=== PATIENT | male | born 1945 | race Caucasian/White ===

== ENCOUNTER → 2016-07-30 | Outpatient (CLI) | payer MEDICARE ==
[2016-07-30 11:06] LABS: EKG EKG PERFORMED
[2016-07-30 11:21] LABS: Basophils % (A) 1 %; CH 33.5; CHCM 35.4; Eosinophils # (A) 0.3 k/uL (0-0.7); Eosinophils % (A) 4 %; HCT 47.6 % (39.0-53.0); HDW 3.21; HGB 16.2 gm/dL (13.0-17.5); Luc # (Auto) 0.13; Luc % (Auto) 2; Lymphocytes # (A) 1.5 k/uL (1.0-4.8); Lymphocytes % (A) 22 %; MCH 32.3 pg (25.0-35.0); MCHC 33.9 g/dL (31.0-37.0); MCV 95.3 fL (80.0-100.0); Mean Platelet Volume 6.6; Monocytes # (A) 0.3 k/uL (0-1.0); Monocytes % (A) 5 %; Neutrophils # (A) 4.5 k/uL (1.3-7.7); Neutrophils % (A) 67 %; RDW 13.5 % (11.5-15.5); WBC 6.7 k/uL (3.8-10.6); WBC (Perox) 6.65
[2016-07-30 11:31] LABS: ALT 41 U/L (21-72); AST 26 U/L (17-59); Alkaline Phosphatase 99 U/L (38-126); Anion Gap 9 mmol/L; Blood Urea Nitrogen 16 mg/dL (9-20); Calcium 9.8 mg/dL (8.4-10.2); Carbon Dioxide 26 mmol/L (22-30); Chloride 108 mmol/L (98-107); Glucose 165 mg/dL (74-99); Non-African American GFR(MDRD) >60 (>60 ml/min/1.73 sqM); Potassium 4.4 mmol/L (3.5-5.1); Sodium 143 mmol/L (137-145); Total Bilirubin 1.1 mg/dL (0.2-1.3); Total Protein 7.2 g/dL (6.3-8.2)
[2016-07-30 11:36] LABS: INR 1.1 (<1.1); Partial Thromboplastin Time 26.8 sec (22.0-30.0); Prothrombin Time 10.7 sec (9.0-12.0)
[2016-07-30 11:42] LABS: Appearance,Urine Clear (Clear); Bilirubin,Urine Negative (Negative); Glucose,Urine (UA) Negative (Negative); Ketones,Urine Negative (Negative); Leukocyte Esterase,Urine Negative (Negative); Mucus,Urine Rare /hpf; Nitrite,Urine Negative (Negative); PH, Urine 5.5 (5.0-8.0); Particle Count 4106; Protein,Urine 2+ (Negative); Specific Gravity,Urine 1.015 (1.001-1.035); UA Billing (MACRO vs. MICRO) MICRO; Urobilinogen,Urine <2.0 mg/dL (<2.0)
== END | disposition home or self-care (01) ==
LOC: LABPAT 10:50
PROVIDERS: ATTEND Orthopaedic Surgery
DX: Z01.810 Encounter for preprocedural cardiovascular examination (principal); Z01.812 Encounter for preprocedural laboratory examination; Z79.01 Long term (current) use of anticoagulants
CPT/HCPCS: 80053; 81001; 85025; 85610; 85730; 86850; 86900; 86901; 87070; 93005

== ENCOUNTER 2018-11-03 16:13 | Inpatient (IN) | payer MEDICARE ==
[2018-11-03] MEDS: SODIUM CHLORIDE 0.9% 1,000 ML IV STA ×4 (16:32→21:07)
[2018-11-03 16:49] LABS: Basophils % (A) 0 %; Eosinophils # (A) 0.1 k/uL (0-0.7); Eosinophils % (A) 2 %; HCT 35.7 % (39.0-53.0); HGB 11.9 gm/dL (13.0-17.5); Lymphocytes # (A) 1.1 k/uL (1.0-4.8); Lymphocytes % (A) 15 %; MCH 32.1 pg (25.0-35.0); MCHC 33.4 g/dL (31.0-37.0); MCV 96.2 fL (80.0-100.0); Mean Platelet Volume 6.8; Monocytes # (A) 0.4 k/uL (0-1.0); Monocytes % (A) 6 %; Neutrophils # (A) 5.7 k/uL (1.3-7.7); Neutrophils % (A) 76 %; Platelet Count 219 k/uL (150-450); RBC 3.71 m/uL (4.30-5.90); WBC 7.5 k/uL (3.8-10.6)
[2018-11-03 16:59] LABS: Albumin 3.3 g/dL (3.5-5.0); Calcium 9.2 mg/dL (8.4-10.2); Magnesium 1.4 mg/dL (1.6-2.3); Potassium 4.3 mmol/L (3.5-5.1); Total Bilirubin 0.5 mg/dL (0.2-1.3); Total Protein 5.8 g/dL (6.3-8.2)
[2018-11-03 17:04] LABS: Prothrombin Time 10.6 sec (9.0-12.0)
[2018-11-03 17:08] LABS: Partial Thromboplastin Time 21.4 sec (22.0-30.0)
--- NOTE | 2018-11-03 17:10 | ED ---
General Adult HPI - General Chief complaint: Syncope Stated complaint: SYNCOPE Time Seen by Provider: 11/03/18 16:20 Source: patient, EMS, RN notes reviewed, old records reviewed Mode of arrival: EMS Limitations: no limitations - History of Present Illness Initial comments: 72-year-old male presents with syncopal episode. Patient was outside in the a t today. He had become quite lightheaded, and collapsed and was brought in by EMS. He was found to be bradycardic and hypotensive with initial blood pressure in the 70s. He was mildly confused. He has history of hypertension and is on multiple antihypertensive medications. He did take his medications this afternoon. He reports mild nausea. No chest pain. No dyspnea. No abdominal pain. No focal numbness or weakness. - Related Data Home Medications Medication Instructions Recorded Confirmed Atorvastatin [Lipitor] 80 mg PO DAILY 07/29/16 11/03/18 Ciprofloxacin HCl [Cipro] 500 mg PO BID 11/03/18 11/03/18 Hydrochlorothiazide [Hydrodiuril] 25 mg PO DAILY 11/03/18 11/03/18 Insulin Aspart [NovoLOG Flexpen] See Protocol SQ ACHS 11/03/18 11/03/18 Insulin Glargine,Hum.rec.anlog See Protocol SQ HS 11/03/18 11/03/18 [Lantus Solostar] Lisinopril [Zestril] 20 mg PO BID 11/03/18 11/03/18 Metoprolol Tartrate [Lopressor] 25 mg PO BID 11/03/18 11/03/18 Tamsulosin [Flomax] 0.4 mg PO DAILY 11/03/18 11/03/18 cloNIDine HCL [Catapres] 0.1 mg PO BID 11/03/18 11/03/18 hydrALAZINE HCL [Apresoline] 50 mg PO TID 11/03/18 11/03/18 metFORMIN HCL [Glucophage] 500 mg PO BID 11/03/18 11/03/18 Allergies Allergy/AdvReac Type Severity Reaction Status Date / Time No Known Allergies Allergy Verified 11/03/18 17:33 Review of Systems ROS Statement: Those systems with pertinent positive or pertinent negative responses have been documented in the HPI. ROS Other: All systems not noted in ROS Statement are negative. Past Medical History Past Medical History: Cancer, Diabetes Mellitus, GERD/Reflux, Hyperlipidemia, Hypertension Additional Past Medical History / Comment(s): past hx colon polyps History of Any Multi-Drug Resistant Organisms: None Reported Past Surgical History: Appendectomy, Cholecystectomy, Coronary Bypass/CABG, Heart Catheterization Additional Past Surgical History / Comment(s): triple bypass Past Anesthesia/Blood Transfusion Reactions: No Reported Reaction Past Psychological History: No Psychological Hx Reported Smoking Status: Former smoker Past Alcohol Use History: None Reported Past Drug Use History: None Reported - Past Family History Mother Family Medical History: No Reported History General Exam Limitations: no limitations General appearance: alert, in no apparent distress Head exam: Present: atraumatic, normocephalic Eye exam: Present: normal appearance, PERRL ENT exam: Present: mucous membranes dry Neck exam: Present: normal inspection. Absent: tenderness, meningismus Respiratory exam: Present: normal lung sounds bilaterally. Absent: respiratory distress, wheezes Cardiovascular Exam: Present: regular rate, normal rhythm GI/Abdominal exam: Present: soft. Absent: distended, tenderness, guarding, rebound Extremities exam: Present: normal inspection, normal capillary refill. Absent: calf tenderness Neurological exam: Present: alert, oriented X3, CN II-XII intact. Absent: motor sensory deficit Psychiatric exam: Present: normal affect, normal mood Skin exam: Present: warm, intact, diaphoretic, pallor. Absent: cyanosis Course Vital Signs 11/03/18 11/03/18 16:22 16:37 Temperature 97.3 F L Pulse Rate 61 56 L Respiratory 18 18 Rate Blood Pressure 87/50 97/54 O2 Sat by Pulse 95 98 Oximetry EKG Findings - EKG Comments: EKG Findings:: EKG: Sinus rhythm with first-degree AV block, right bundle branch block, left anterior fascicular block rate of 60, TX interval 216, QRS duration 170, QTC 468 similar appearing EKG compared to July 2016. Medical Decision Making - Medical Decision Making 72-year-old male presents for evaluation of syncope. Patient was in the sun and heat, he had taken his blood pressure medications this afternoon which include hydrochlorothiazide, lisinopril, clonidine, hydralazine. He's had difficult to control blood pressure in the past. No chest pain. No dyspnea. He is lightheaded. Workup in the emergency department reveals EKG was sinus rhythm first-degree AV block normal white blood cell count, stable he will, creatinine is up trending at 1.88 from baseline of 1.2. He has magnesium 1.4 which is replaced. Troponin is negative. Urinalysis shows minor hematuria, he does have indwelling Villafuerte catheter with history of obstruction. Chest x-ray is is particularly, concern for CHF. Cardiomegaly similar compared to previous EKG. After initial fluid bolus, patient's blood pressure does improve. He will be admitted for close observation of hypotension and bradycardia. He will be kept on gentle IV hydration with some concern for developing pulmonary edema. A BMP will be added this is pending. He's continued as metoprolol, his other antihypertensives will be held awaiting stabilization of blood pressure. Case is discussed with Dr. Snider, we will admit. - Lab Data Result diagrams: 11/03/18 16:40 11/03/18 16:40 Lab Results 11/03/18 11/03/18 11/03/18 Range/Units 16:40 16:40 16:40 WBC 7.5 (3.8-10.6) k/uL RBC 3.71 L (4.30-5.90) m/uL Hgb 11.9 L (13.0-17.5) gm/dL Hct 35.7 L (39.0-53.0) % MCV 96.2 (80.0-100.0) fL MCH 32.1 (25.0-35.0) pg MCHC 33.4 (31.0-37.0) g/dL RDW 13.0 (11.5-15.5) % Plt Count 219 (150-450) k/uL Neutrophils % 76 % Lymphocytes % 15 % Monocytes % 6 % Eosinophils % 2 % Basophils % 0 % Neutrophils # 5.7 (1.3-7.7) k/uL Lymphocytes # 1.1 (1.0-4.8) k/uL Monocytes # 0.4 (0-1.0) k/uL Eosinophils # 0.1 (0-0.7) k/uL Basophils # 0.0 (0-0.2) k/uL PT 10.6 (9.0-12.0) sec INR 1.0 (<1.2) APTT 21.4 L (22.0-30.0) sec Sodium 142 (137-145) mmol/L Potassium 4.3 (3.5-5.1) mmol/L Chloride 115 H (98-107) mmol/L Carbon Dioxide 18 L (22-30) mmol/L Anion Gap 9 mmol/L BUN 44 H (9-20) mg/dL Creatinine 1.88 H (0.66-1.25) mg/dL Est GFR (CKD-EPI)AfAm 41 (>60 ml/min/1.73 sqM) Est GFR (CKD-EPI)NonAf 36 (>60 ml/min/1.73 sqM) Glucose 81 (74-99) mg/dL Plasma Lactic Acid [place] (0.7-2.0) mmol/L Calcium 9.2 (8.4-10.2) mg/dL Magnesium 1.4 L (1.6-2.3) mg/dL Total Bilirubin 0.5 (0.2-1.3) mg/dL AST 19 (17-59) U/L ALT 25 (21-72) U/L Alkaline Phosphatase 66 (38-126) U/L Troponin I (0.000-0.034) ng/mL Total Protein 5.8 L (6.3-8.2) g/dL Albumin 3.3 L (3.5-5.0) g/dL Urine Color Urine Appearance (Clear) Urine pH (5.0-8.0) Ur Specific [place] (1.001-1.035) Urine Protein (Negative) Urine Glucose (UA) (Negative) Urine Ketones (Negative) Urine Blood (Negative) Urine Nitrite (Negative) Urine Bilirubin (Negative) Urine Urobilinogen (<2.0) mg/dL Ur Leukocyte Esterase (Negative) Urine RBC (0-5) /hpf Urine WBC (0-5) /hpf Hyaline Casts (0-2) /lpf Urine Mucus (None) /hpf 11/03/18 11/03/18 11/03/18 Range/Units 16:40 16:40 18:15 WBC (3.8-10.6) k/uL RBC (4.30-5.90) m/uL Hgb (13.0-17.5) gm/dL Hct (39.0-53.0) % MCV (80.0-100.0) fL MCH (25.0-35.0) pg MCHC (31.0-37.0) g/dL RDW (11.5-15.5) % Plt Count (150-450) k/uL Neutrophils % % Lymphocytes % % Monocytes % % Eosinophils % % Basophils % % Neutrophils # (1.3-7.7) k/uL Lymphocytes # (1.0-4.8) k/uL Monocytes # (0-1.0) k/uL Eosinophils # (0-0.7) k/uL Basophils # (0-0.2) k/uL PT (9.0-12.0) sec INR (<1.2) APTT (22.0-30.0) sec Sodium (137-145) mmol/L Potassium (3.5-5.1) mmol/L Chloride (98-107) mmol/L Carbon Dioxide (22-30) mmol/L Anion Gap mmol/L BUN (9-20) mg/dL Creatinine (0.66-1.25) mg/dL Est GFR (CKD-EPI)AfAm (>60 ml/min/1.73 sqM) Est GFR (CKD-EPI)NonAf (>60 ml/min/1.73 sqM) Glucose (74-99) mg/dL Plasma Lactic Acid [place] 1.8 (0.7-2.0) mmol/L Calcium (8.4-10.2) mg/dL Magnesium (1.6-2.3) mg/dL Total Bilirubin (0.2-1.3) mg/dL AST (17-59) U/L ALT (21-72) U/L Alkaline Phosphatase (38-126) U/L Troponin I <0.012 (0.000-0.034) ng/mL Total Protein (6.3-8.2) g/dL Albumin (3.5-5.0) g/dL Urine Color Yellow Urine Appearance Clear (Clear) Urine pH 5.5 (5.0-8.0) Ur Specific [place] 1.017 (1.001-1.035) Urine Protein 1+ H (Negative) Urine Glucose (UA) Negative (Negative) Urine Ketones Negative (Negative) Urine Blood Small H (Negative) Urine Nitrite Negative (Negative) Urine Bilirubin Negative (Negative) Urine Urobilinogen <2.0 (<2.0) mg/dL Ur Leukocyte Esterase Small H (Negative) Urine RBC 52 H (0-5) /hpf Urine WBC 4 (0-5) /hpf Hyaline Casts 16 H (0-2) /lpf Urine Mucus Rare H (None) /hpf Critical Care Time Critical Care Time: Yes Total Critical Care Time: 35 Disposition Clinical Impression: Dehydration, Hypotension Disposition: ADMITTED IP TO THIS [facility] Condition: Stable Is patient prescribed a controlled substance at d/c from ED?: No Referrals: Phil Maxwell MD [Primary Care Provider] - 1-2 days Decision to Admit Reason: Admit from EC Decision Date: 11/03/18 Decision Time: 19:01
[2018-11-03] MEDS ORDERED: MAGNESIUM SULFATE-D5W PMX 1 GM in DEXTROSE/WATER 1 100ML.BAG IVPB ONE (17:36)
[2018-11-03] MEDS ORDERED: SODIUM CHLORIDE 0.9% 500 ML 500 ML IV ONE (17:36)
--- NOTE | 2018-11-03 18:08 | XR ---
EXAMINATION: XR chest 2V DATE AND TIME: 11/03/2018 5:02 PM CLINICAL INDICATION: PHH; syncope TECHNIQUE: Frontal and 2 lateral views COMPARISON: 08/11/2016 FINDINGS: There is an interstitial pattern of increased density throughout the lungs, mildly silhouetting the p ulmonary vasculature symmetrically. The lungs are otherwise clear. The pleural spaces are negative. The cardiac silhouette is moderate-markedly enlarged. There are sternal sutures and mediastinal clips and EKG leads. The remainder of the mediastinal silhouette is unremarkable. The skeletal structures and soft tissues are negative for acute findings. IMPRESSION: Evidence of mild interstitial phase pulmonary edema, presumably cardiogenic etiology.
[2018-11-03 18:43] LABS: Appearance,Urine Clear (Clear); Bilirubin,Urine Negative (Negative); Blood,Urine Small (Negative); Color,Urine Yellow; Glucose,Urine (UA) Negative (Negative); Hyaline Casts,Urine 16 /lpf (0-2); Ketones,Urine Negative (Negative); Leukocyte Esterase,Urine Small (Negative); Mucus,Urine Rare /hpf; Nitrite,Urine Negative (Negative); PH, Urine 5.5 (5.0-8.0); Protein,Urine 1+ (Negative); RBC,Urine 52 /hpf (0-5); Specific Gravity,Urine 1.017 (1.001-1.035); Urobilinogen,Urine <2.0 mg/dL (<2.0); WBC,Urine 4 /hpf (0-5)
[2018-11-03] MEDS ORDERED: NALOXONE 0.4 MG/ML 1 ML VIAL IV PRN (18:46)
[2018-11-03 22:29] VITALS: BMI 29.2
[2018-11-03 22:48] LABS: Glucose,Whole Blood 112 mg/dL (75-99)
[2018-11-03] MEDS: METOPROLOL TARTRATE 25 MG TAB PO SCH (22:56)
[2018-11-04 06:02] LABS: Glucose,Whole Blood 149 mg/dL (75-99)
[2018-11-04] MEDS: metFORMIN 500 MG TAB PO SCH ×2 (06:12→17:30)
[2018-11-04] MEDS: INSULIN ASPART (NovoLOG) 100 UNIT/ML VIAL SQ SCH ×4 (06:12→21:22)
[2018-11-04 07:00] LABS: Basophils % (A) 0 %; Eosinophils # (A) 0.2 k/uL (0-0.7); Eosinophils % (A) 2 %; HCT 38.3 % (39.0-53.0); HGB 12.3 gm/dL (13.0-17.5); Lymphocytes # (A) 1.1 k/uL (1.0-4.8); Lymphocytes % (A) 12 %; MCH 31.5 pg (25.0-35.0); MCV 98.3 fL (80.0-100.0); Mean Platelet Volume 6.9; Monocytes # (A) 0.7 k/uL (0-1.0); Monocytes % (A) 7 %; Neutrophils # (A) 7.7 k/uL (1.3-7.7); Neutrophils % (A) 79 %; Platelet Count 201 k/uL (150-450); RDW 13.1 % (11.5-15.5); WBC 9.8 k/uL (3.8-10.6)
[2018-11-04 07:13] LABS: Albumin 3.2 g/dL (3.5-5.0); Calcium 9.1 mg/dL (8.4-10.2); Magnesium 1.6 mg/dL (1.6-2.3); Potassium 4.8 mmol/L (3.5-5.1); Total Bilirubin 0.5 mg/dL (0.2-1.3); Total Protein 5.7 g/dL (6.3-8.2)
[2018-11-04] MEDS: METOPROLOL TARTRATE 25 MG TAB PO SCH (08:55)
[2018-11-04] MEDS: ATORVASTATIN 80 MG TAB PO SCH (08:56)
[2018-11-04] MEDS: hydrALAZINE HCL 50 MG TAB PO SCH ×2 (08:56→17:30)
[2018-11-04] MEDS: TAMSULOSIN 0.4 MG CAP.ER.24H PO SCH (08:56)
[2018-11-04] MEDS ORDERED: cloNIDine HCL 0.1 MG TAB PO SCH (09:00)
[2018-11-04] MEDS ORDERED: LISINOPRIL 20 MG TAB PO SCH (09:00)
[2018-11-04] MEDS ORDERED: HYDROCHLOROTHIAZIDE 25 MG TAB PO SCH (09:00)
[2018-11-04 12:13] LABS: Glucose,Whole Blood 151 mg/dL (75-99)
--- NOTE | 2018-11-04 14:22 | P.HPIM ---
History of Present Illness H&P Date: 11/04/18 Chief Complaint: Passed out History of presenting complaint: This is a pleasant 72-year-old patient of Dr. Phil Maxwell. Chronic stable medical conditions include diabetes, GERD, hyperlipidemia, hypertension, coronary artery disease with a coronary bypass in 2008. Patient about a week ago was with his girlfriend near [facility] and could not make urine. Lateral up going to the ER. Had a Villafuerte catheter placed which she's had since then. A computed tomography scan of the abdomen was done that was a concern about cancer of the kidney. Patient did come back and see his family doctor. Patient now has a follow-up appointment what is felt to be with the urologist this coming Tuesday. Patient yesterday with his granddaughter was at the local fair and was pretty hot outside close to 90. Patient only had some water in the morning. Patient became dizzy lightheaded and and patient passed out. There is no chest pain no palpitation. No focal weakness. No seizure activity. Pro time biting. No incontinence. Patient's blood pressure was low when he had come in. After getting fluids resuscitation is feeling much better. No headache or dizziness. No visual symptoms. Review of systems: GEN.: Tired EYES: None HEENT: None NECK: None RESPIRATORY: None CARDIOVASCULAR: None GASTROINTESTINAL: Has a Villafuerte catheter GENITOURINARY: None MUSCULOSKELETAL: Some pain in the joints] LYMPHATICS: None HEMATOLOGICAL: None PSYCHIATRY: None NEUROLOGICAL: None. Past medical history: Diabetes mellitus type 2, GERD, hypertension, hyperlipidemia, coronary artery disease, has a Villafuerte catheter for a week, being worked up for kidney cancer. Social history: Smoked a pack a day for 10 years stopped about 35 years ago. 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 Lives with her son. Family history: Reviewed, noncontributory to presentation Physical examination: VITAL SIGNS: 97.3, 61, 18, 87/50, 95% room air on presentation GENERAL: BMI 30.0, sitting up, comfortable. EYES: Pupils equal. Conjunctiva normal. HEENT: External appearance of nose and ears normal, oral cavity grossly normal. NECK: JVD not raised; masses not palpable. HEART: First and second heart sounds are normal; no edema. LUNGS: Respiratory rate normal; clear to auscultation. ABDOMEN: Soft, nontender, liver spleen not palpable, no masses palpable, Villafuerte catheter in place. PSYCH: Alert and oriented x3; mood and affect normal. NEUROLOGICAL: Cranial nerves grossly intact; no facial asymmetry, power and sensation grossly intact. LYMPHATICS: No lymph nodes palpable in the axilla and neck Investigations, reviewed in the clinical context: White count 7.5 hemoglobin 11.9 potassium 4.3 BUN 44 creatinine 1.88 Troponin negative Assessment: -Acute renal failure, prerenal from dehydration patient's out of the sun it was very hot had not drank much water -Coronary artery disease with a prior history of coronary bypass -Diabetes mellitus type 2 on oral hypoglycemic and non-good. 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 -Outpatient workup in place for kidney mass Plan: Patient is put on telemetry. Given home medications. Given IV fluids. Repeat electrolytes. Patient is feeling much better after getting IV fluids. Care was discussed with the patient Past Medical History Past Medical History: Cancer, Diabetes Mellitus, GERD/Reflux, Hyperlipidemia, Hypertension Additional Past Medical History / Comment(s): past hx colon polyps History of Any Multi-Drug Resistant Organisms: None Reported Past Surgical History: Appendectomy, Cholecystectomy, Coronary Bypass/CABG, Heart Catheterization Additional Past Surgical History / Comment(s): triple bypass 2008 Past Anesthesia/Blood Transfusion Reactions: No Reported Reaction Past Psychological History: No Psychological Hx Reported Smoking Status: Former smoker Past Alcohol Use History: None Reported Additional Past Alcohol Use History / Comment(s): STARTED SMOKING AT AGE 27 QUIT SMOKING AT AGE 37 SMOKED 1 PPD Past Drug Use History: None Reported - Past Family History Mother Family Medical History: No Reported History Medications and Allergies Home Medications Medication Instructions Recorded Confirmed Type Atorvastatin [Lipitor] 80 mg PO DAILY 07/29/16 11/03/18 History Hydrochlorothiazide [Hydrodiuril] 25 mg PO DAILY 11/03/18 11/03/18 History Insulin Aspart [NovoLOG Flexpen] See Protocol SQ ACHS 11/03/18 11/03/18 History Insulin Glargine,Hum.rec.anlog See Protocol SQ HS 11/03/18 11/03/18 History [Lantus Solostar] Lisinopril [Zestril] 20 mg PO BID 11/03/18 11/03/18 History Metoprolol Tartrate [Lopressor] 25 mg PO BID 11/03/18 11/03/18 History Tamsulosin [Flomax] 0.4 mg PO DAILY 11/03/18 11/03/18 History cloNIDine HCL [Catapres] 0.1 mg PO BID 11/03/18 11/03/18 History hydrALAZINE HCL [Apresoline] 50 mg PO TID 11/03/18 11/03/18 History metFORMIN HCL [Glucophage] 500 mg PO BID 11/03/18 11/03/18 History Allergies Allergy/AdvReac Type Severity Reaction Status Date / Time No Known Allergies Allergy Verified 11/03/18 17:33 Physical Exam Vitals: Vital Signs Temp Pulse Pulse Resp BP BP Pulse Ox 11/04/18 04:00 97.7 F 55 L 18 160/75 97 11/04/18 00:00 98.1 F 48 L 17 161/68 100 11/03/18 22:09 98.6 F 53 L 15 167/73 100 11/03/18 21:39 97.8 F 53 L 18 137/70 98 11/03/18 21:06 56 L 16 136/73 97 11/03/18 19:35 98 F 56 L 16 117/66 96 11/03/18 16:37 56 L 18 97/54 98 11/03/18 16:22 97.3 F L 61 18 87/50 95 Intake and Output 11/03/18 11/04/18 11/04/18 22:59 06:59 14:59 Intake Total 50 10 240 Output Total 600 300 Balance -550 -290 240 Intake: IV 10 Invasive Line 1 10 Intake, IV Titration 50 Amount Sodium Chloride 0.9% 500 50 ml 500 ml @ 999 mls/hr IV .Q31M ONE Rx#:[id number] Oral 240 Output: Urine 600 300 Other: Voiding Method Indwelling Catheter Toilet Weight 89.358 kg Results CBC & Chem 7: 11/04/18 06:31 11/04/18 06:31 Labs: Abnormal Lab Results - Last 24 Hours (Table) 11/03/18 11/03/18 11/03/18 Range/Units 16:40 16:40 16:40 RBC 3.71 L (4.30-5.90) m/uL Hgb 11.9 L (13.0-17.5) gm/dL Hct 35.7 L (39.0-53.0) % APTT 21.4 L (22.0-30.0) sec Chloride 115 H (98-107) mmol/L Carbon Dioxide 18 L (22-30) mmol/L BUN 44 H (9-20) mg/dL Creatinine 1.88 H (0.66-1.25) mg/dL Glucose (74-99) mg/dL POC Glucose (mg/dL) (75-99) mg/dL Magnesium 1.4 L (1.6-2.3) mg/dL Total Protein 5.8 L (6.3-8.2) g/dL Albumin 3.3 L (3.5-5.0) g/dL Urine Protein (Negative) Urine Blood (Negative) Ur Leukocyte Esterase (Negative) Urine RBC (0-5) /hpf Hyaline Casts (0-2) /lpf Urine Mucus (None) /hpf 11/03/18 11/03/18 11/04/18 Range/Units 18:15 22:46 05:58 RBC (4.30-5.90) m/uL Hgb (13.0-17.5) gm/dL Hct (39.0-53.0) % APTT (22.0-30.0) sec Chloride (98-107) mmol/L Carbon Dioxide (22-30) mmol/L BUN (9-20) mg/dL Creatinine (0.66-1.25) mg/dL Glucose (74-99) mg/dL POC Glucose (mg/dL) 112 H 149 H (75-99) mg/dL Magnesium (1.6-2.3) mg/dL Total Protein (6.3-8.2) g/dL Albumin (3.5-5.0) g/dL Urine Protein 1+ H (Negative) Urine Blood Small H (Negative) Ur Leukocyte Esterase Small H (Negative) Urine RBC 52 H (0-5) /hpf Hyaline Casts 16 H (0-2) /lpf Urine Mucus Rare H (None) /hpf 11/04/18 11/04/18 Range/Units 06:31 06:31 RBC 3.90 L (4.30-5.90) m/uL Hgb 12.3 L (13.0-17.5) gm/dL Hct 38.3 L (39.0-53.0) % APTT (22.0-30.0) sec Chloride 115 H (98-107) mmol/L Carbon Dioxide 20 L (22-30) mmol/L BUN 32 H (9-20) mg/dL Creatinine (0.66-1.25) mg/dL Glucose 152 H (74-99) mg/dL POC Glucose (mg/dL) (75-99) mg/dL Magnesium (1.6-2.3) mg/dL Total Protein 5.7 L (6.3-8.2) g/dL Albumin 3.2 L (3.5-5.0) g/dL Urine Protein (Negative) Urine Blood (Negative) Ur Leukocyte Esterase (Negative) Urine RBC (0-5) /hpf Hyaline Casts (0-2) /lpf Urine Mucus (None) /hpf Thrombosis Risk Factor Assmnt - Choose All That Apply Any of the Below Risk Factors Present?: Yes Each Factor Represents 1 point: Obesity (BMI >25) Other Risk Factors: Yes Each Risk Factor Represents 2 Points: Age 61-74 years Other congenital or acquired thrombophilia - If yes, enter type in comment: No Each Risk Factor Represents 5 Points: Stroke (< 1 month) Thrombosis Risk Factor Assessment Total Risk Factor Score: 8 Thrombosis Risk Factor Assessment Level: High Risk
[2018-11-04 16:57] LABS: Glucose,Whole Blood 186 mg/dL (75-99)
[2018-11-04] MEDS: hydrALAZINE HCL 25 MG TAB PO SCH (20:22)
[2018-11-04] MEDS: LISINOPRIL-HCTZ 20-12.5 MG 1 EACH TAB PO SCH (20:22)
[2018-11-04] MEDS: cloNIDine HCL 0.1 MG TAB PO SCH (20:22)
[2018-11-04 20:43] LABS: Glucose,Whole Blood 170 mg/dL (75-99)
[2018-11-04] MEDS: INSULIN DETEMIR (LEVEMIR) 100 UNIT/ML SYR SQ SCH (21:22)
[2018-11-05 06:27] LABS: Glucose,Whole Blood 161 mg/dL (75-99)
[2018-11-05] MEDS: metFORMIN 500 MG TAB PO SCH ×2 (06:37→17:14)
[2018-11-05] MEDS: INSULIN ASPART (NovoLOG) 100 UNIT/ML VIAL SQ SCH ×4 (06:39→21:16)
[2018-11-05] MEDS: ATORVASTATIN 80 MG TAB PO SCH (07:52)
[2018-11-05] MEDS: LISINOPRIL-HCTZ 20-12.5 MG 1 EACH TAB PO SCH ×2 (07:52→21:15)
[2018-11-05] MEDS: hydrALAZINE HCL 25 MG TAB PO SCH ×3 (07:52→21:15)
[2018-11-05] MEDS: TAMSULOSIN 0.4 MG CAP.ER.24H PO SCH (07:53)
[2018-11-05] MEDS: cloNIDine HCL 0.1 MG TAB PO SCH (07:53)
[2018-11-05 11:09] LABS: Calcium 10.4 mg/dL (8.4-10.2)
--- NOTE | 2018-11-05 11:17 | P.CRDCN ---
History of Present Illness Consult date: 11/05/18 Reason for Consult (text): Bradycardia Chief complaint: Syncopal episode History of present illness: This is a 72-year-old male patient of Dr. SCARLETT Kim with past medical history of coronary artery disease status post triple vessel CABG in 2008, hypertension, hyperlipidemia, diabetes mellitus type 2, benign prostatic hypertrophy and urinary retention with Villafuerte catheter placement 10 days ago. Patient gives history that he was unable to urinate [place] and had Villafuerte catheter placed and started on Flomax and ciprofloxacin. CAT scan was done at that time but did show questionable mass on his left kidney. He has had follow-up with Dr. Phil Maxwell his PCP and is scheduled with urology tomorrow for initial appointment. Patient was at the [facility] with his granddaughter and was sitting down watching her while she was on a ride. He experienced lightheadedness and dizzy and everything went black. He collapsed and landed on his knees. He believes he had full loss of consciousness as he cannot remember what happened. He also gives history of having a similar episode last Tuesday but not as severe. He and his were at a restaurant and needed assistance to get to the car. Yesterday, he was evaluated by EMS and found to be bradycardic and hypotensive with initial blood pressure in the 70s. Patient was also mildly confused. Patient denies having any chest pain, shortness of breath. Patient was provided 1 L of IV fluids in the emergency center with improvement of his blood pressure. Overnight, patient's heart rate is been running in the 50s. He did have a run of sinus tachycardia at 150 for 5-10 minutes. Patient denies having any chest pain or shortness of breath. He states he is feeling quite well at this time. EKG reveals sinus mechanism with first-degree AV block, right bundle branch block. Laboratory studies: White count 7.5, hemoglobin 11.9, sodium 142, potassium 4.3, chloride 115, CO2 18, BUN 44 and creatinine 1.88 with baseline creatinine of 1. magnesium was 1.4 and was replaced. Troponin 0.012. Lactic acid 1.8. ProBNP 484. Urinalysis showed small amount of blood, RBCs 52. Patient does have a chronic Villafuerte catheter Chest x-ray revealed mild interstitial phase pulmonary edema, presumably cardiogenic etiology. Review Of Systems: Constitutional: No fever, no chills, no night sweats. No weight change. No weakness, fatigue or lethargy. No daytime sleepiness. EENT: No headache. No blurred vision or double vision, no loss of vision. No loss of Hearing, no ringing in the ears, reports dizziness. No nasal drainage or congestion. No epistaxis. No sore throat. Lungs: No shortness of breath, cough, no sputum production. No wheezing. Cardiovascular: No chest pain, no lower extremity edema. No palpitations. No paroxysmal nocturnal dyspnea. No orthopnea. Reports lightheadedness or dizziness. Reports syncopal episodes. Abdominal: No abdominal pain. No nausea, vomiting. No diarrhea. No constipation. No bloody or tarry stools.. No loss of appetite. Genitourinary: No dysuria, increased frequency, urgency. No urinary retention. Musculoskeletal: No myalgias. No muscle weakness, no gait dysfunction, no frequent falls. No back pain. No neck pain. Integumentary: No wounds, no lesions. No rash or pruritus. No unusual bruising. No change in hair or nails. Neurologic: No aphasia. No facial droop. No change in mentation. No head injury. No headache. No paralysis. No paresthesia. Psychiatric: No depression. No anxiety. No mood swings. Endocrine: No abnormal blood sugars. No weight change. No excessive sweating or thirst. No cold intolerance. No weight change. Gen: This is a 72-year-old male. He is sitting up in a gentleman appears to be comfortable and in no acute distress. No symptoms of lightheadedness or dizziness. HEENT: Head is atraumatic, normocephalic. Pupils equal, round. Sclerae is anicteric. NECK: Supple. No JVD. No lymphadenopathy. No thyromegaly. LUNGS: Clear to auscultation. No wheezes or rhonchi. No intercostal retractions. HEART: Regular rate and rhythm. No murmur. ABDOMEN: Soft. Bowel sounds are present. No masses. No tenderness. EXTREMITIES: No pedal edema. No calf tenderness. Dorsalis pedis +2 bilaterally. NEUROLOGICAL: Patient is awake, alert and oriented x3. Cranial nerves 2 through 12 are grossly intact. Assessment: Syncope possibly related to bradycardia, hypotension or dehydration. History of coronary artery disease status post triple-vessel CABG in 2008. Hypertension. Hyperlipidemia. Diabetes mellitus type 2. Benign prostatic hypertrophy with urinary retention and currently with Villafuerte catheter. Possible kidney cancer which will need further workup as an outpatient. Plan: Continue cardiac monitoring for arrhythmias. Hold beta catherine and clonidine. Start IV fluids 0.9 normal saline at 75 mL per hour. No evidence of heart failure. Continue hydralazine 75 mg 3 times daily. Obtain 2-D echocardiogram and Doppler study to assess cardiac structure and function. Consult urology. Further recommendations to follow based upon clinical course. Nurse practitioner note has been reviewed, I agree with documented findings and plan of care. Patient was seen and examined. Past Medical History Past Medical History: Cancer, Diabetes Mellitus, GERD/Reflux, Hyperlipidemia, Hypertension Additional Past Medical History / Comment(s): past hx colon polyps History of Any Multi-Drug Resistant Organisms: None Reported Past Surgical History: Appendectomy, Cholecystectomy, Coronary Bypass/CABG, Heart Catheterization Additional Past Surgical History / Comment(s): triple bypass 2008 Past Anesthesia/Blood Transfusion Reactions: No Reported Reaction Past Psychological History: No Psychological Hx Reported Smoking Status: Former smoker Past Alcohol Use History: None Reported Additional Past Alcohol Use History / Comment(s): STARTED SMOKING AT AGE 27 QUIT SMOKING AT AGE 37 SMOKED 1 PPD Past Drug Use History: None Reported - Past Family History Mother Family Medical History: No Reported History Medications and Allergies Home Medications Medication Instructions Recorded Confirmed Type Atorvastatin [Lipitor] 80 mg PO DAILY 07/29/16 11/03/18 History Hydrochlorothiazide [Hydrodiuril] 25 mg PO DAILY 11/03/18 11/03/18 History Insulin Aspart [NovoLOG Flexpen] See Protocol SQ ACHS 11/03/18 11/03/18 History Insulin Glargine,Hum.rec.anlog See Protocol SQ HS 11/03/18 11/03/18 History [Lantus Solostar] Lisinopril [Zestril] 20 mg PO BID 11/03/18 11/03/18 History Metoprolol Tartrate [Lopressor] 25 mg PO BID 11/03/18 11/03/18 History Tamsulosin [Flomax] 0.4 mg PO DAILY 11/03/18 11/03/18 History cloNIDine HCL [Catapres] 0.1 mg PO BID 11/03/18 11/03/18 History hydrALAZINE HCL [Apresoline] 50 mg PO TID 11/03/18 11/03/18 History metFORMIN HCL [Glucophage] 500 mg PO BID 11/03/18 11/03/18 History Allergies Allergy/AdvReac Type Severity Reaction Status Date / Time No Known Allergies Allergy Verified 11/03/18 17:33 Physical Exam Vitals: Vital Signs Temp Pulse Resp BP Pulse Ox 11/05/18 08:00 98.2 F 62 16 158/74 97 11/05/18 04:00 97.7 F 77 15 153/81 95 11/05/18 00:00 98.7 F 60 15 133/60 97 11/04/18 20:00 98.2 F 59 L 18 159/73 98 11/04/18 16:00 98.4 F 56 L 18 157/71 11/04/18 12:00 98.0 F 62 18 142/66 94 L 11/04/18 11:42 18 Intake and Output 11/04/18 11/05/18 11/05/18 22:59 06:59 14:59 Intake Total 1182 Balance 1182 Intake: Oral 1182 Other: Voiding Method Toilet Toilet Indwelling Catheter # Voids 2 1 Weight 86.7 kg Results 11/04/18 06:31 11/04/18 06:31 Current Medications Generic Name Dose Route Start Last Admin Trade Name Freq PRN Reason Stop Dose Admin Atorvastatin Calcium 80 mg 11/04/18 09:00 11/05/18 07:52 Lipitor PO 80 mg DAILY CRISTIAN Administration Clonidine 0.1 mg 11/04/18 22:00 11/05/18 07:53 Catapres PO 0.1 mg TID CRISTIAN Administration Lisinopril/HCTZ 1 each 11/04/18 21:00 11/05/18 07:52 Zestoretic 20-12.5 PO 1 each BID CRISTIAN Administration Hydralazine HCl 75 mg 11/04/18 22:00 11/05/18 07:52 Apresoline PO 75 mg TID CRISTIAN Administration Insulin Aspart 0 unit 11/04/18 07:30 11/05/18 06:39 Novolog SQ 1 unit ACHS CRISTIAN Administration Protocol Insulin Detemir 30 unit 11/04/18 21:00 06/29/19 21:22 Levemir SQ 30 unit HS CRISTIAN Administration Metformin HCl 500 mg 11/04/18 07:30 11/05/18 06:37 Glucophage PO 500 mg AC-BID CRISTIAN Administration Naloxone HCl 0.2 mg 11/03/18 18:46 Narcan IV Q2M PRN Opioid Reversal Tamsulosin HCl 0.4 mg 11/04/18 09:00 11/05/18 07:53 Flomax PO 0.4 mg DAILY CRISTIAN Administration Intake and Output 11/04/18 11/05/18 11/05/18 22:59 06:59 14:59 Intake Total 1182 Balance 1182 Intake: Oral 1182 Other: Voiding Method Toilet Toilet Indwelling Catheter # Voids 2 1 Weight 86.7 kg 11/04/18 06:31 11/04/18 06:31
[2018-11-05] MEDS: SODIUM CHLORIDE 0.9% 1,000 ML IV SCH (11:21)
[2018-11-05 11:46] LABS: Glucose,Whole Blood 173 mg/dL (75-99)
[2018-11-05 16:45] LABS: Glucose,Whole Blood 181 mg/dL (75-99)
[2018-11-05 21:13] LABS: Glucose,Whole Blood 183 mg/dL (75-99)
[2018-11-05] MEDS: INSULIN DETEMIR (LEVEMIR) 100 UNIT/ML SYR SQ SCH (21:15)
--- NOTE | 2018-11-05 22:53 | P.PN ---
Progress Note - Text Progress Note Date: 11/05/18 Chief Complaint: Passed out Interval history: This is a pleasant 72-year-old patient of Dr. Phil Maxwell. Chronic stable medical conditions include diabetes, GERD, hyperlipidemia, hypertension, coronary artery disease with a coronary bypass in 2008. Patient about a week ago was with his girlfriend near [facility] and could not make urine. Lateral up going to the ER. Had a Villafuerte catheter placed which she's had since then. A computed tomography scan of the abdomen was done that was a concern about cancer of the kidney. Patient did come back and see his family doctor. Patient now has a follow-up appointment what is felt to be with the urologist this coming Tuesday. Patient yesterday with his granddaughter was at the local fair and was pretty hot outside close to 90. Patient only had some water in the morning. Patient became dizzy lightheaded and and patient passed out. There is no chest pain no palpitation. No focal weakness. No seizure activity. Pro time biting. No incontinence. Patient's blood pressure was low when he had come in. After getting fluids resuscitation is feeling much better. No headache or dizziness. No visual symptoms. Today-seen by cardiology later today. I held the beta catherine yesterday. This morning's supervisor rework to stop the clonidine. Start on IV fluids. No other new symptoms. Review of systems: Was done for constitutional, cardiovascular, GI, pulmonary. relevant finding as above Current medications reviewed that include: Clonidine was stopped today. Physical examination: VITAL SIGNS: 98.2, 62, 16, 1 50 x 74, 97% room air GENERAL: sitting up, comfortable. EYES: Pupils equal. Conjunctiva normal. HEENT: External appearance of nose and ears normal, oral cavity grossly normal. NECK: JVD not raised; masses not palpable. HEART: First and second heart sounds are normal; no edema. LUNGS: Respiratory rate normal; clear to auscultation. ABDOMEN: Soft, nontender, liver spleen not palpable, no masses palpable, Villafuerte catheter in place. PSYCH: Alert and oriented x3; mood and affect normal. Investigations, reviewed in the clinical context: Potassium 5, BUN 24, crit and 1.22 Troponin negative Assessment: -Acute renal failure, prerenal from dehydration patient's out of the sun it was very hot had not drank much water, improved -Coronary artery disease with a prior history of coronary bypass -Diabetes mellitus type 2 on oral hypoglycemic and non-good. -Essential hypertension, uncontrolled -Hyperlipidemia -Obesity BMI 30.0 -Bladder outflow obstruction patient is a Villafuerte catheter for a week. -Outpatient workup in place for kidney mass Plan: Clonidine was discontinued by cardiology earlier today. Put on IV fluids. Other medications to continue. Care was discussed with the patient.
[2018-11-06] MEDS: SODIUM CHLORIDE 0.9% 1,000 ML IV SCH ×2 (00:10→10:06)
[2018-11-06 05:54] LABS: Glucose,Whole Blood 172 mg/dL (75-99)
[2018-11-06] MEDS: INSULIN ASPART (NovoLOG) 100 UNIT/ML VIAL SQ SCH ×4 (06:49→21:20)
[2018-11-06] MEDS: metFORMIN 500 MG TAB PO SCH ×2 (06:49→14:57)
[2018-11-06] MEDS: hydrALAZINE HCL 25 MG TAB PO SCH ×3 (08:54→19:54)
[2018-11-06] MEDS: LISINOPRIL-HCTZ 20-12.5 MG 1 EACH TAB PO SCH ×2 (08:54→19:53)
[2018-11-06] MEDS: TAMSULOSIN 0.4 MG CAP.ER.24H PO SCH (08:54)
[2018-11-06] MEDS: ATORVASTATIN 80 MG TAB PO SCH (08:54)
--- NOTE | 2018-11-06 10:41 | P.PN ---
Subjective This very pleasant 72-year-old gentleman with a history of CABG, hypertension, hyperlipidemia, diabetes is admitted for syncope. He was found to be in acute renal failure. Was also noted that his heart rate was running in the 50s and on one occasion he jumped up to 150s. Beta blockers and clonidine is on hold as of now. Blood pressure is very high in the range of 190s systolic. Today the patient says that he's feeling good. He does not complain of any more dizziness, no chest pain racing heart, no cough no shortness of breath. Objective - Vital Signs Vital signs: Vital Signs Temp 98.1 F 11/06/18 08:00 Pulse 74 11/06/18 08:00 Resp 18 11/06/18 08:00 BP 197/90 11/06/18 08:00 Pulse Ox 99 11/06/18 08:00 Intake & Output 11/05/18 11/06/18 11/06/18 18:59 06:59 18:59 Intake Total 702 Output Total 670 1625 Balance 32 -1625 Weight 87.2 kg Intake: Oral 702 Output: Urine 670 1625 Other: Voiding Method Toilet Toilet Toilet - Exam On exam, alert and oriented x3. HEENT: Conjunctivae normal. eyes normal. NECK: No JVD. No thyroid enlargement. 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 No rhonchi or crackles. No bronchial breathing. ABDOMEN: Soft, nontender . No guarding. no masses palpable. No ascites, No hepatosplenomegaly.Bowel sounds heard. LEGS: No edema. no swelling NERVOUS SYSTEM: Cranial N 2-12 grossly normal. Moves all 4 limbs. No focal deficits. No sensory deficit. No signs of cerebellar dysfucntion. Skin: no ulcer no rash - Labs CBC & Chem 7: 11/04/18 06:31 11/05/18 10:27 Labs: Abnormal Lab Results - Last 24 Hours (Table) 11/05/18 11/05/18 11/05/18 Range/Units 10:27 11:44 16:43 Chloride 109 H (98-107) mmol/L BUN 24 H (9-20) mg/dL Glucose 176 H (74-99) mg/dL POC Glucose (mg/dL) 173 H 181 H (75-99) mg/dL Calcium 10.4 H (8.4-10.2) mg/dL 11/05/18 11/06/18 Range/Units 21:10 05:52 Chloride (98-107) mmol/L BUN (9-20) mg/dL Glucose (74-99) mg/dL POC Glucose (mg/dL) 183 H 172 H (75-99) mg/dL Calcium (8.4-10.2) mg/dL Assessment and Plan Assessment: - Syncope - Bradycardia - A accelerated hypertension - AK I on CK D. Baseline kidney functions 1.2. - History of CAD status post CABG - Hyperlipidemia - Diabetes mellitus - Urinary retention has Villafuerte catheter. Computed tomography scan done in the other facility showed possible cancer of the kidneys Plan - Continue blood pressure medications. Nurse to take blood pressure and page if high - Awaiting urology consultation - Awaiting further recommendations from cardiology - Continue rest of the medical care - We'll follow up with the patient
--- NOTE | 2018-11-06 12:16 | ECHOF ---
Referral Reason:LV function MEASUREMENTS -------- HEIGHT: 172.7 cm WEIGHT: 87.1 kg BP: 154/67 RVIDd: 3.0 cm (< 3.3) IVSd: 1.7 cm (0.6 - 1.1) LVIDd: 4.7 cm (3.9 - 5.3) LVPWd: 1.6 cm (0.6 - 1.1) IVSs: 2.2 cm LVIDs: 3.3 cm LVPWs: 1.9 cm LA Diam: 3.9 cm (2.7 - 3.8) LAESV Index (A-L): 26.85 ml/m Ao Diam: 4.2 cm (2.0 - 3.7) AV Cusp: 2.0 cm (1.5 - 2.6) MV EXCURSION: 16.594 mm (> 18.000) MV EF SLOPE: 46 mm/s (70 - 150) EPSS: 1.1 cm MV E Dayne: 0.90 m/s MV DecT: 192 ms MV A Dayne: 1.15 m/s MV E/A Ratio: 0.78 FINDINGS -------- Paced rhythm. This was a technically adequate study. The left ventricular size is normal. There is severe concentric left ventricular hypertrophy. Ove rall left ventricular systolic function is mildly impaired with, an EF between 45 - 50 %. [place] Hypo kinesis. The right ventricle is normal in size. Normal LA size by volume 22+/-6 ml/m2. The right atrium was not well visualized. 5 ml of Lumason was utilized for enhancement of images. Interatrial and interventricular septum intact. There is mild aortic valve sclerosis. Trace to mild aortic regurgitation. The mitral valve leaflets are mildly thickened. Mild mitral annular calcification present. The tricuspid valve was not well visualized. Trace/mild (physiologic) pulmonic regurgitation. The aortic root is dilated measuring 4.2cm. Normal inferior vena cava with normal inspiratory collapse consistent with estimated right atrial pre ssure of 5 mmHg. There is no pericardial effusion. CONCLUSIONS -------- 1. Paced rhythm. 2. This was a technically adequate study. 3. The left ventricular size is normal. 4. There is severe concentric left ventricular hypertrophy. 5. [place] Hypokinesis. 6. The right ventricle is normal in size. 7. Normal LA size by volume 22+/-6 ml/m2. 8. The right atrium was not well visualized. 9. 5 ml of Lumason was utilized for enhancement of images. 10. Interatrial and interventricular septum intact. 11. There is mild aortic valve sclerosis. 12. Trace to mild aortic regurgitation. 13. The mitral valve leaflets are mildly thickened. 14. Mild mitral annular calcification present. 15. The tricuspid valve was not well visualized. 16. Trace/mild (physiologic) pulmonic regurgitation. 17. The aortic root is dilated measuring 4.2cm. 18. Normal inferior vena cava with normal inspiratory collapse consistent with estimated right atrial pressure of 5 mmHg. 19. There is no pericardial effusion. IT ACCOUNT MANAGER: Farzana Hardy RDCS
[2018-11-06 12:38] LABS: Glucose,Whole Blood 141 mg/dL (75-99)
[2018-11-06] MEDS: cloNIDine HCL 0.1 MG TAB PO SCH ×2 (13:25→19:54)
[2018-11-06 16:55] LABS: Glucose,Whole Blood 190 mg/dL (75-99)
--- NOTE | 2018-11-06 18:38 | P.PN ---
Subjective Progress Note Date: 11/06/18 Principal diagnosis: hypotension/bradycardia Patient currently continues sinus rhythm heart rate 84. Blood pressure this a.m. 200/93. Restart Catapress 0.1 mg twice daily by mouth. Continue beta catherine Metoprolol Tartrate 12.5 mg BID. Pt in no acute distress up and ambulating in room with ease. Lala cath has been Dc'd and pt able to void without any issues. Patient has no current complaints of chest pain, chest pressure, shortness of breath or palpitations. Physical exam within normal limits. OK for DC from a cardiology standpoint with controlled BP. PHYSICAL EXAM: VITAL SIGNS: GENERAL: Well developed, in no acute distress. HEENT: Head is atraumatic, normocephalic. Pupils are equal, round. Extra ocular movements intact. Mucous membranes moist. Neck supple. No JVD. No carotid bruit. No thyromegaly. LUNGS: Clear to auscultation no wheezes, rales or rhonchi. No chest wall tenderness on palpation or with deep breathing. HEART: Regular rate and rhythm, no rubs or gallops. S1 and S2 heard. No murmur. ABDOMEN: Abdominal exam, WNL. Bowel sounds x4 quads. Soft, non-tender, without masses, organomegaly, or abdominal aorta enlargement. EXTREMITIES/VASCULAR: Extremities have easily palpable radial, femoral, dorsalis pedis and posterior tibial pulses. No cyanosis, calf tenderness. No BLE edema. NEUROLOGIC: Patient is awake, alert and oriented x3. No focal neurologic abnormalities. Impression: Syncope secondary to bradycardia/hypotension/dehydration. CAD s/p triple-vessel CABG in 2008. Hypertension. Hyperlipidemia. DM II Benign prostatic hypertrophy, no current lala cath Objective - Vital Signs Vital signs: Vital Signs Temp 97.8 F 11/06/18 11:01 Pulse 79 11/06/18 11:01 Resp 18 11/06/18 11:01 BP 200/93 11/06/18 11:01 Pulse Ox 97 11/06/18 11:01 Intake & Output 11/05/18 11/06/18 11/06/18 18:59 06:59 18:59 Intake Total 702 Output Total 670 1625 Balance 32 -1625 Weight 87.2 kg Intake: Oral 702 Output: Urine 670 1625 Other: Voiding Method Toilet Toilet Toilet - Labs CBC & Chem 7: 11/04/18 06:31 11/05/18 10:27 Labs: Abnormal Lab Results - Last 24 Hours (Table) 11/05/18 11/05/18 11/06/18 Range/Units 16:43 21:10 05:52 POC Glucose (mg/dL) 181 H 183 H 172 H (75-99) mg/dL 11/06/18 Range/Units 12:03 POC Glucose (mg/dL) 141 H (75-99) mg/dL
[2018-11-06 21:18] LABS: Glucose,Whole Blood 174 mg/dL (75-99)
[2018-11-06] MEDS: INSULIN DETEMIR (LEVEMIR) 100 UNIT/ML SYR SQ SCH (21:19)
[2018-11-07] MEDS ORDERED: INSULIN DETEMIR (LEVEMIR) 100 UNIT/ML SYR SQ SCH (06:10)
[2018-11-07 06:14] LABS: Glucose,Whole Blood 167 mg/dL (75-99)
[2018-11-07] MEDS: metFORMIN 500 MG TAB PO SCH (06:27)
[2018-11-07] MEDS: INSULIN ASPART (NovoLOG) 100 UNIT/ML VIAL SQ SCH ×2 (06:27→12:32)
[2018-11-07] MEDS: SODIUM CHLORIDE 0.9% 1,000 ML IV SCH (06:29)
[2018-11-07 07:20] LABS: HGB 12.4 gm/dL (13.0-17.5); MCHC 33.6 g/dL (31.0-37.0); MCV 95.1 fL (80.0-100.0); Mean Platelet Volume 7.8; Platelet Count 191 k/uL (150-450); RBC 3.89 m/uL (4.30-5.90); RDW 14.9 % (11.5-15.5); WBC 7.1 k/uL (3.8-10.6)
[2018-11-07 07:28] LABS: Calcium 10.2 mg/dL (8.4-10.2); Potassium 4.6 mmol/L (3.5-5.1)
[2018-11-07 08:59] VITALS: BP 148/72; PULSE 65; RESP 16; TEMP 98.1
[2018-11-07] MEDS ORDERED: METOPROLOL TARTRATE 12.5 MG TAB PO SCH (10:00)
--- NOTE | 2018-11-07 10:32 | P.DS ---
Providers Date of admission: 11/03/18 18:49 Expected date of discharge: 11/07/18 Attending physician: Fabio Snider Consults: 11/04/18 14:30 Consult Physician Routine Consulting Provider: Jovany Kim Consult Reason/Comments: bradycardia Do you want consulting provider notified?: Yes 11/05/18 10:49 Consult Physician Routine Consulting Provider: Stanley Kuhn Consult Reason/Comments: lala leaking, kidney ca Do you want consulting provider notified?: Yes Primary care physician: Phil Maxwell MD Hospital Course: Discharge summary - Syncope - Bradycardia - A accelerated hypertension - AK I on CK D. Baseline kidney functions 1.2. - History of CAD status post CABG - Hyperlipidemia - Diabetes mellitus - Urinary retention has Lala catheter. Computed tomography scan done in the other facility showed possible cancer of the kidneys Hospital course This very pleasant 72-year-old gentleman with a history of CABG, hypertension, hyperlipidemia, diabetes is admitted for syncope. He was found to be in acute renal failure. Was also noted that his heart rate was running in the 50s and on one occasion he jumped up to 150s. Beta blockers and clonidine is on hold as of now. Blood pressure is very high in the range of 190s systolic. Patient's CAT scan also showed that he's having possible cancer of the kidneys. He was also having some urinary retention. Lala catheter was placed which was later DC'd and he is voiding on his own. Patient's blood pressure medications were adjusted and he was started back on the clonidine and low-dose of beta catherine. On 11/07/2018 On exam, alert and oriented x3. HEENT: Conjunctivae normal. eyes normal. NECK: No JVD. No thyroid enlargement. No LNs CARDIOVASCULAR: S1-S2 positive RESPIRATION: Breath sounds diminished in the bases. No rhonchi or crackles. No bronchial breathing. ABDOMEN: Soft, nontender . No guarding. no masses palpable. No ascites, No hepatosplenomegaly.Bowel sounds heard. LEGS: No edema. no swelling NERVOUS SYSTEM: Cranial N 2-12 grossly normal. Moves all 4 limbs. No focal deficits. No sensory deficit. No signs of cerebellar dysfucntion. Skin: no ulcer no rash Patient was cleared by cardiology to be discharged Patient is to get an event monitor before discharge and follow-up with cardiology at the date discussed in the discharge summary below. Patient is to also follow with urology as an outpatient. The primary care doctor is to coordinate the follow-up with urology and cardiology Patient Condition at Discharge: Stable Plan - Discharge Summary Discharge Rx Participant: No New Discharge Prescriptions: New hydrALAZINE HCL [Apresoline] 75 mg PO TID #90 tab Metoprolol Tartrate [Lopressor] 12.5 mg PO BID #60 tab Lisinopril-Hctz 20-12.5 mg [Zestoretic 20-12.5] 1 each PO BID #60 tab Continue Atorvastatin [Lipitor] 80 mg PO DAILY metFORMIN HCL [Glucophage] 500 mg PO BID cloNIDine HCL [Catapres] 0.1 mg PO BID Tamsulosin [Flomax] 0.4 mg PO DAILY Insulin Glargine,Hum.rec.anlog [Lantus Solostar] See Protocol SQ HS Insulin Aspart [NovoLOG Flexpen] See Protocol SQ ACHS Discontinued hydrALAZINE HCL [Apresoline] 50 mg PO TID Hydrochlorothiazide [Hydrodiuril] 25 mg PO DAILY Metoprolol Tartrate [Lopressor] 25 mg PO BID Lisinopril [Zestril] 20 mg PO BID Discharge Medication List Atorvastatin [Lipitor] 80 mg PO DAILY 07/29/16 [History] Insulin Aspart [NovoLOG Flexpen] See Protocol SQ ACHS 11/03/18 [History] Insulin Glargine,Hum.rec.anlog [Lantus Solostar] See Protocol SQ HS 11/03/18 [History] Tamsulosin [Flomax] 0.4 mg PO DAILY 11/03/18 [History] cloNIDine HCL [Catapres] 0.1 mg PO BID 11/03/18 [History] metFORMIN HCL [Glucophage] 500 mg PO BID 11/03/18 [History] Lisinopril-Hctz 20-12.5 mg [Zestoretic 20-12.5] 1 each PO BID #60 tab 11/07/18 [Rx] Metoprolol Tartrate [Lopressor] 12.5 mg PO BID #60 tab 11/07/18 [Rx] hydrALAZINE HCL [Apresoline] 75 mg PO TID #90 tab 11/07/18 [Rx] Follow up Appointment(s)/Referral(s): Jovany Kim MD [STAFF PHYSICIAN] - 1 Week (Office will call with follow up appointment.) Phil Maxwell MD [Primary Care Provider] - 3 Days (Office will call with follow up appointment. ) Stanley Kuhn MD [STAFF PHYSICIAN] - 1 Week Patient Instructions/Handouts: Urinary Tract Infection in Men (DC), Syncope (DC), Bradycardia (DC) Activity/Diet/Wound Care/Special Instructions: Pt needs 2 week event monitor prior to discharge, follow up with cardiology in 3 weeks. Discharge Disposition: HOME SELF-CARE
[2018-11-07] MEDS: cloNIDine HCL 0.1 MG TAB PO SCH (10:42)
[2018-11-07] MEDS: TAMSULOSIN 0.4 MG CAP.ER.24H PO SCH (10:42)
[2018-11-07] MEDS: ATORVASTATIN 80 MG TAB PO SCH (10:42)
[2018-11-07] MEDS: hydrALAZINE HCL 25 MG TAB PO SCH (10:42)
[2018-11-07] MEDS: LISINOPRIL-HCTZ 20-12.5 MG 1 EACH TAB PO SCH (10:42)
[2018-11-07 11:36] LABS: Glucose,Whole Blood 162 mg/dL (75-99)
--- NOTE | 2018-11-07 16:12 | PN ---
PROGRESS NOTE DATE OF SERVICE: Mr. Mello has a history of ischemic heart disease and came in with near-syncope in the setting of dehydration. However, he has not had any tachy- or bradyarrhythmias. I am going to resume his beta catherine, increase activity. Echo revealed fair systolic function. Vitals are stable. Advised to be compliant with medications. S1, S2 heard normally. Short systolic murmur noted. Lungs reveal decent air entry. Abdomen and lower extremity exam unchanged. Plan is to increase activity, discharge him, and I will see him in the office in 3 weeks. He will have an event monitor. I discussed my thoughts in detail with the patient. Thank you very much for the consult. MMODL / IJN: [id number] /
--- NOTE | 2018-11-08 07:00 | CDI ---
Documentation Clarification Form Date: 11/08/18 From: Jazmin Rogers Phone: If you have a question regarding this query, please contact Makenna Forrest at [phone] between 8am and 5pm. Admit Date: 11/03/2018 6:49:00 PM Patient Name: Venkat Mello Visit Number: [id number] Discharge Date: 11/07/2018 1:08:00 PM ATTENTION: The Clinical Documentation Specialists (CDI) and [facility] Coding Staff appreciate your assistance in clarifying documentation. Please respond to the clarification below the line at the bottom and electronically sign. The CDI & [facility] Coding staff will review the response and follow-up if needed. Please note: Queries are made part of the Legal Health Record. If you have any questions, please contact the author of this message via ITS. Dr. Tim Tsang Acute Renal failure is documented in the H&P, discharge summary and progress notes. History Risk factors/Other underlying illness: Patient was dehydrated on admission and has a history of hypertension, BPH and bladder outflow obstruction. Clinical Indicators: Dehydration, hypotension Labs: Patient presents with a BUN/CR and GFR of: 44/1.88/36 Patients discharge BUN/CR and GFR: 25/1.13/66 with a baseline kidney function of 1.2 per documentation in the discharge summary. Urinalysis: Protein 1+, blood small, leukocyte esterase small, RBC 52, hyaline casts 16, mucus rare Treatment: 1.5 L Sodium Chloride bolus then at 75 mls/hr. In your professional opinion, can you please clarify if the condition can be further specified? Acute Renal Failure with Acute Tubular Necrosis Acute Renal Failure with Renal Cortical Necrosis Acute Renal Failure with other specified pathological cause, please specify Acute Renal Failure with other cause, please specify Unable to determine Other, please specify Acute Renal Failure DUE TO DEHYDRATION MTDD
--- NOTE | 2018-11-08 07:16 | CDI ---
Documentation Clarification Form Date: 11/08/18 From: Jazmin Rogers Phone: If you have a question regarding this query, please contact Makenna Forrest at [phone] between 8am and 5pm. Admit Date: 11/03/2018 6:49:00 PM Patient Name: Venkat Mello Visit Number: [id number] Discharge Date: 11/07/2018 1:08:00 PM ATTENTION: The Clinical Documentation Specialists (CDI) and [facility] Coding Staff appreciate your assistance in clarifying documentation. Please respond to the clarification below the line at the bottom and electronically sign. The CDI & [facility] Coding staff will review the response and follow-up if needed. Please note: Queries are made part of the Legal Health Record. If you have any questions, please contact the author of this message via ITS. Dr. Tim Tsang Patient was admitted with acute renal failure, hypotension, bradycardia and syncope. History/Risk Factors: Hypertensive cardiovascular disease, BPH, urinary outflow obstruction, obeity, history of smoking. Clinical Indicators: GFR of 36 on admission. Current BUN/CR/GFR: 44/1.88/36 Patients Discharge BUN/CR/GFR: 25/1.13/66. Documentation in the discharge summary states that patient's baseline kindey function is 1.2. Treatment: IVF 1.5 L bolus Sodium Chloride then at 75 mls/hr In order to capture the severity of condition, please clarify if the condition signifies: CKD Stage 1 (GFR > 90) CKD Stage 2 (GFR 60-89) CKD Stage 3 (GFR 30-59) CKD Stage 4 (GFR 15-29) CKD Stage 5 (GFR <15) ESRD Other, please specify Unable to determine no ckd MTDD
== END 2018-11-07 13:08 | disposition home or self-care (01) | DRG 309 ==
LOC: EC 16:13 → 3SCARD 18:49
PROVIDERS: ADMIT Hospitalist; ATTEND Hospitalist
DX: R00.1 Bradycardia, unspecified (principal); N17.9 Acute kidney failure, unspecified; C64.9 Malignant neoplasm of unspecified kidney, except renal pelvis; I95.9 Hypotension, unspecified; E86.0 Dehydration; E11.9 Type 2 diabetes mellitus without complications; I11.9 Hypertensive heart disease without heart failure; I45.10 Unspecified right bundle-branch block; E66.9 Obesity, unspecified; E78.5 Hyperlipidemia, unspecified; I25.10 Atherosclerotic heart disease of native coronary artery without angina pectoris; I44.0 Atrioventricular block, first degree; K21.9 Gastro-esophageal reflux disease without esophagitis; N32.0 Bladder-neck obstruction; N40.1 Benign prostatic hyperplasia with lower urinary tract symptoms; R33.8 Other retention of urine; R01.1 Cardiac murmur, unspecified; R55 Syncope and collapse; Z68.30 Body mass index [BMI] 30.0-30.9, adult; Z79.899 Other long term (current) drug therapy; Z79.4 Long term (current) use of insulin; Z86.010 Personal history of colon polyps; Z87.891 Personal history of nicotine dependence; Z95.1 Presence of aortocoronary bypass graft
CPT/HCPCS: 36415; 71046; 80048; 80053; 81001; 83605; 83735; 83880; 84484; 85025; 85027; 85610; 85730; 93005; 93270; 93306; 96360; 96361; 96365; 99291

== ENCOUNTER 2018-11-18 15:58 | Emergency (ER) | payer MEDICARE ==
[2018-11-18 16:15] VITALS: RESP 18
[2018-11-18 16:50] LABS: Appearance,Urine Clear (Clear); Bilirubin,Urine Negative (Negative); Blood,Urine Large (Negative); Color,Urine Red; Glucose,Urine (UA) Negative (Negative); Ketones,Urine Trace (Negative); Leukocyte Esterase,Urine Small (Negative); Nitrite,Urine Negative (Negative); Protein,Urine 2+ (Negative); RBC,Urine >182 /hpf (0-5); Specific Gravity,Urine 1.005 (1.001-1.035); Urobilinogen,Urine <2.0 mg/dL (<2.0); WBC,Urine 19 /hpf (0-5)
--- NOTE | 2018-11-18 18:03 | ED ---
Male Urogenital HPI - General Chief complaint: Urogenital Stated complaint: Hematuria Time Seen by Provider: 11/18/18 16:15 Source: patient, family Mode of arrival: ambulatory Limitations: no limitations - History of Present Illness Initial comments: 72-year-old male presented for blood in urine. Patient states that he is currently being evaluated for possibly right kidney cancer. Patient states she has an upcoming appointment on December 19 at [facility] in [place], [place]. Patient states that he has had on-and-off hematuria. Denies any pain. He denies any clots. Denies any abdominal pain or discomfort. Patient denies any inability to urinate or abdominal distention. Patient denies fever or back pain. Patient states he has increased urge to urinate. Remaining review of systems negative. Upon arrival patient appears well signs of acute distress. When hematuria occurred again today patient felt it was best to come for evaluation in the ER. - Related Data Home Medications Medication Instructions Recorded Confirmed Atorvastatin [Lipitor] 80 mg PO DAILY 07/29/16 11/18/18 Insulin Aspart [NovoLOG Flexpen] See Protocol SQ ACHS 11/03/18 11/18/18 Insulin Glargine,Hum.rec.anlog 30 - 40 unit SQ HS 11/03/18 11/18/18 [Lantus Solostar] Tamsulosin [Flomax] 0.4 mg PO DAILY 11/03/18 11/18/18 cloNIDine HCL [Catapres] 0.1 mg PO BID 11/03/18 11/18/18 metFORMIN HCL [Glucophage] 500 mg PO BID 11/03/18 11/18/18 Apixaban [Eliquis] 5 mg PO BID 11/18/18 11/18/18 Aspirin EC [Ecotrin Low Dose] 81 mg PO DAILY 11/18/18 11/18/18 Metoprolol Tartrate 25 mg PO TID 11/18/18 11/18/18 hydrALAZINE HCL [Apresoline] 50 mg PO TID 11/18/18 11/18/18 Previous Rx's Medication Instructions Recorded Lisinopril-Hctz 20-12.5 mg 1 each PO BID #60 tab 11/07/18 [Zestoretic 20-12.5] Allergies Allergy/AdvReac Type Severity Reaction Status Date / Time No Known Allergies Allergy Verified 11/18/18 17:14 Review of Systems ROS Statement: Those systems with pertinent positive or pertinent negative responses have been documented in the HPI. ROS Other: All systems not noted in ROS Statement are negative. Past Medical History Past Medical History: Cancer, Diabetes Mellitus, GERD/Reflux, Hyperlipidemia, Hypertension Additional Past Medical History / Comment(s): past hx colon polyps History of Any Multi-Drug Resistant Organisms: None Reported Past Surgical History: Appendectomy, Cholecystectomy, Coronary Bypass/CABG, Heart Catheterization Additional Past Surgical History / Comment(s): triple bypass 2009 Past Anesthesia/Blood Transfusion Reactions: No Reported Reaction Past Psychological History: No Psychological Hx Reported Smoking Status: Former smoker Past Alcohol Use History: None Reported Past Drug Use History: None Reported - Past Family History Mother Family Medical History: No Reported History General Exam - General Exam Comments Initial Comments: General: The patient is awake and alert, in no distress, and does not appear acutely ill. Eye: Pupils are equal, round and reactive to light, extra-ocular movements are intact. No nystagmus. There is normal conjunctiva bilaterally. No signs of icterus. Ears, nose, mouth and throat: There are moist mucous membranes and no oral lesions. Neck: The neck is supple, there is no tenderness or JVD. Cardiovascular: There is a regular rate and rhythm. No murmur, rub or gallop is appreciated. Respiratory: Lungs are clear to auscultation, respirations are non-labored, breath sounds are equal. No wheezes, stridor, rales, or rhonchi. Gastrointestinal: Soft, non-distended, non-tender abdomen without masses or organomegaly noted. There is no rebound or guarding present. No CVA tenderness. Bowel sounds are unremarkable. Musculoskeletal: Normal ROM, no tenderness. Strength 5/5. Sensation intact. Pulses equal bilaterally 2+. Neurological: A&O x 3. CN II-XII intact, There are no obvious motor or sensory deficits. Coordination appears grossly intact. Speech is normal. Skin: Skin is warm and dry and no rashes or lesions are noted. Psychiatric: Cooperative, appropriate mood & affect, normal judgment. Limitations: no limitations Course Vital Signs 11/18/18 11/18/18 16:09 19:03 Temperature 98.2 F 98.9 F Pulse Rate 71 74 Respiratory 18 18 Rate Blood Pressure 179/68 153/83 O2 Sat by Pulse 97 98 Oximetry Medical Decision Making - Medical Decision Making 9-year-old male presenting for hematuria. Patient denies clots. Denies urinary retention. Patient able to avoid large amounts. Abdominal exam benign. Hemoglobin stable. Patient creatinine within acceptable limits. Blood pressure within acceptable limits. Patient appears well. Patient is on eliquis. Patient states that during his visit his blood went from darker red to brush maker. He states he feels is getting better. This helped the patient is hemodynamically stable. I recommended outpatient urology follow-up. Patient is agreeable with outpatient follow up and return parameters, which were discussed at length. Patient was discharged appearing well. - Lab Data Result diagrams: 11/18/18 16:45 11/18/18 16:45 Lab Results 11/18/18 11/18/18 11/18/18 Range/Units 16:42 16:45 16:45 WBC 9.3 (3.8-10.6) k/uL RBC 4.24 L (4.30-5.90) m/uL Hgb 13.5 (13.0-17.5) gm/dL Hct 39.3 (39.0-53.0) % MCV 92.7 (80.0-100.0) fL MCH 31.7 (25.0-35.0) pg MCHC 34.2 (31.0-37.0) g/dL RDW 14.5 (11.5-15.5) % Plt Count 212 (150-450) k/uL Neutrophils % 83 % Lymphocytes % 11 % Monocytes % 4 % Eosinophils % 1 % Basophils % 0 % Neutrophils # 7.7 (1.3-7.7) k/uL Lymphocytes # 1.0 (1.0-4.8) k/uL Monocytes # 0.4 (0-1.0) k/uL Eosinophils # 0.1 (0-0.7) k/uL Basophils # 0.0 (0-0.2) k/uL Sodium 136 L (137-145) mmol/L Potassium 4.6 (3.5-5.1) mmol/L Chloride 104 (98-107) mmol/L Carbon Dioxide 20 L (22-30) mmol/L Anion Gap 12 mmol/L BUN 26 H (9-20) mg/dL Creatinine 1.33 H (0.66-1.25) mg/dL Est GFR (CKD-EPI)AfAm 63 (>60 ml/min/1.73 sqM) Est GFR (CKD-EPI)NonAf 54 (>60 ml/min/1.73 sqM) Glucose 140 H (74-99) mg/dL Calcium 10.2 (8.4-10.2) mg/dL Total Bilirubin 0.9 (0.2-1.3) mg/dL AST 31 (17-59) U/L ALT 37 (21-72) U/L Alkaline Phosphatase 92 (38-126) U/L Total Protein 7.4 (6.3-8.2) g/dL Albumin 4.5 (3.5-5.0) g/dL Urine Color Red Urine Appearance Clear (Clear) Urine pH 6.0 (5.0-8.0) Ur Specific [place] 1.005 (1.001-1.035) Urine Protein 2+ H (Negative) Urine Glucose (UA) Negative (Negative) Urine Ketones Trace H (Negative) Urine Blood Large H (Negative) Urine Nitrite Negative (Negative) Urine Bilirubin Negative (Negative) Urine Urobilinogen <2.0 (<2.0) mg/dL Ur Leukocyte Esterase Small H (Negative) Urine RBC >182 H (0-5) /hpf Urine WBC 19 H (0-5) /hpf Disposition Clinical Impression: Hematuria Disposition: HOME SELF-CARE Condition: Good Instructions (If sedation given, give patient instructions): Hematuria (ED) Additional Instructions: Please use medication as discussed. Please follow-up with family doctor in the next 2 days, and urology as discussed. Please return to emergency room if the symptoms increase or worsen or for any other concerns, persistent or heavy bleeding, shortness of breath, lightheaded, weakness, pallor. Is patient prescribed a controlled substance at d/c from ED?: No Referrals: Phil Maxwell MD [Primary Care Provider] - 1-2 days Stanley Kuhn MD [STAFF PHYSICIAN] - 1-2 days Time of Disposition: 18:56
[2018-11-18 18:12] LABS: Albumin 4.5 g/dL (3.5-5.0); Calcium 10.2 mg/dL (8.4-10.2); Potassium 4.6 mmol/L (3.5-5.1); Total Bilirubin 0.9 mg/dL (0.2-1.3); Total Protein 7.4 g/dL (6.3-8.2)
[2018-11-18 18:22] LABS: Basophils % (A) 0 %; Eosinophils # (A) 0.1 k/uL (0-0.7); Eosinophils % (A) 1 %; HCT 39.3 % (39.0-53.0); HGB 13.5 gm/dL (13.0-17.5); Lymphocytes % (A) 11 %; MCH 31.7 pg (25.0-35.0); MCHC 34.2 g/dL (31.0-37.0); MCV 92.7 fL (80.0-100.0); Mean Platelet Volume 7.3; Monocytes # (A) 0.4 k/uL (0-1.0); Monocytes % (A) 4 %; Neutrophils # (A) 7.7 k/uL (1.3-7.7); Neutrophils % (A) 83 %; Platelet Count 212 k/uL (150-450); RBC 4.24 m/uL (4.30-5.90); RDW 14.5 % (11.5-15.5); WBC 9.3 k/uL (3.8-10.6)
[2018-11-18 19:05] VITALS: BP 153/83; PULSE 74; TEMP 98.9
== END 2018-11-18 19:03 | disposition home or self-care (01) ==
LOC: EC 15:58
DX: R31.9 Hematuria, unspecified (principal); R39.15 Urgency of urination; E11.9 Type 2 diabetes mellitus without complications; E78.5 Hyperlipidemia, unspecified; I10 Essential (primary) hypertension; Z95.1 Presence of aortocoronary bypass graft; Z95.818 Presence of other cardiac implants and grafts; Z87.891 Personal history of nicotine dependence; Z85.9 Personal history of malignant neoplasm, unspecified; Z79.4 Long term (current) use of insulin; Z79.01 Long term (current) use of anticoagulants; Z79.82 Long term (current) use of aspirin; Z79.899 Other long term (current) drug therapy
CPT/HCPCS: 36415; 80053; 81001; 85025; 99283

== ENCOUNTER 2020-05-21 17:38 | Inpatient (IN) | payer MEDICARE ==
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
[2020-05-21 18:57] LABS: Basophils % (A) 1 %; Eosinophils # (A) 0.2 k/uL (0-0.7); Eosinophils % (A) 2 %; HCT 40.6 % (39.0-53.0); HGB 13.6 gm/dL (13.0-17.5); Lymphocytes # (A) 1.1 k/uL (1.0-4.8); Lymphocytes % (A) 15 %; MCH 32.2 pg (25.0-35.0); MCHC 33.4 g/dL (31.0-37.0); MCV 96.4 fL (80.0-100.0); Mean Platelet Volume 7.1; Monocytes # (A) 0.3 k/uL (0-1.0); Monocytes % (A) 4 %; Neutrophils # (A) 5.5 k/uL (1.3-7.7); Neutrophils % (A) 77 %; Platelet Count 214 k/uL (150-450); RBC 4.22 m/uL (4.30-5.90); WBC 7.1 k/uL (3.8-10.6)
[2020-05-21 19:06] LABS: Albumin 3.9 g/dL (3.5-5.0); Calcium 10.5 mg/dL (8.4-10.2); Magnesium 1.7 mg/dL (1.6-2.3); Potassium 4.5 mmol/L (3.5-5.1); Total Bilirubin 0.7 mg/dL (0.2-1.3); Total Protein 6.8 g/dL (6.3-8.2)
[2020-05-21] MEDS ORDERED: SODIUM CHLORIDE 0.9% 500 ML 500 ML IV ONE (19:09)
--- NOTE | 2020-05-21 19:13 | CT ---
EXAMINATION TYPE: CT brain wo con DATE OF EXAM: 05/21/2020 COMPARISON: None available. HISTORY: Seizure vs Syncope CT DLP: 1066.4 mGycm Automated exposure control for dose reduction was used. Axial CT images of the head was obtained with out contrast. Coronal and sagittal reformats were provided and reviewed. FINDINGS: There is no acute intracranial hemorrhage, mass effect, midline shift or hydrocephalus. There is mode rate encephalomalacia in the right frontoparietal lobe. There is moderate white matter disease. The p aranasal sinuses and mastoid air cells are adequately aerated. The calvarium is intact. IMPRESSION: NO ACUTE INTRACRANIAL ABNORMALITY. Old right MCA territory infarct. Chronic microvascular ischemic changes.
[2020-05-21 19:15] LABS: Prothrombin Time 10.6 sec (9.0-12.0)
[2020-05-21] MEDS ORDERED: SODIUM CHLORIDE 0.9% 1,000 ML IV SCH (19:15)
--- NOTE | 2020-05-21 19:17 | XR ---
EXAMINATION TYPE: XR chest 2V DATE OF EXAM: 05/21/2020 COMPARISON: 11/03/2018. HISTORY: Syncope. TECHNIQUE: Frontal and lateral views of the chest are obtained. FINDINGS: There is mild interstitial edema. No focal air space opacity, pleural effusion, or pneumot horax seen. The cardiac silhouette size is enlarged. CABG noted. The osseous structures are intact. IMPRESSION: Mild interstitial edema.
[2020-05-21] MEDS ORDERED: NALOXONE 0.4 MG/ML 1 ML VIAL IV PRN (19:54)
[2020-05-21] MEDS ORDERED: ACETAMINOPHEN TAB 325 MG TAB PO PRN (19:54)
[2020-05-21 21:55] LABS: Appearance,Urine Clear (Clear); Bilirubin,Urine Negative (Negative); Blood,Urine Negative (Negative); Color,Urine Yellow; Glucose,Urine (UA) Negative (Negative); Hyaline Casts,Urine 1 /lpf (0-2); Ketones,Urine Negative (Negative); Leukocyte Esterase,Urine Negative (Negative); Mucus,Urine Rare /hpf; Nitrite,Urine Negative (Negative); PH, Urine 5.5 (5.0-8.0); Protein,Urine 2+ (Negative); RBC,Urine 2 /hpf (0-5); Specific Gravity,Urine 1.017 (1.001-1.035); Urobilinogen,Urine <2.0 mg/dL (<2.0); WBC,Urine 1 /hpf (0-5)
--- NOTE | 2020-05-21 22:21 | P.HPIM ---
History of Present Illness H&P Date: 05/21/20 Chief Complaint: Got foggy History of presenting complaint: This is a pleasant 74-year-old patient of Dr. Phil Maxwell. Chronic stable medical conditions include diabetes, GERD, hyperlipidemia, hypertension, coronary artery disease with a coronary bypass in 2008. Today patient was driving her granddaughter. This around 5:00. He did not eat in the whole day. His daughter at [place] to come over to eat. Patient does states that he became somewhat foggy. He doesn't remember what happened. Per the EMS reported to the opposite jacobo but patient is on course of the vehicle. There is no reported seizure activity. No tongue biting or incontinence. History of nephrectomy for renal carcinoma. So the patient and the ER today is back to himself. It is unusual for him not to eat. He was just very busy today. Patient's vital sign noted by the EMS was blood pressure 101/63, pulse of 53 respiration 18 pulse ox 98% Review of systems: GEN.: Tired EYES: None HEENT: None NECK: None RESPIRATORY: None CARDIOVASCULAR: None GASTROINTESTINAL: None GENITOURINARY: None MUSCULOSKELETAL: Some pain in the joints] LYMPHATICS: None HEMATOLOGICAL: None PSYCHIATRY: None NEUROLOGICAL: None. Past medical history: Diabetes mellitus type 2, GERD, hypertension, hyperlipidemia, coronary artery disease, kidney cancer with nephrectomy Social history: Smoked a pack a day for 10 years stopped about 35 years ago. 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 Lives with her son. Family history: Reviewed, noncontributory to presentation Physical examination: VITAL SIGNS: 98.1, 65, 17, 113/64, 98% room air GENERAL: BMI 24.3, laying in bed, comfortable EYES: Pupils equal. Conjunctiva normal. HEENT: External appearance of nose and ears normal, oral cavity grossly normal. NECK: JVD not raised; masses not palpable. HEART: First and second heart sounds are normal; no edema. LUNGS: Respiratory rate normal; clear to auscultation. ABDOMEN: Soft, nontender, liver spleen not palpable, no masses palpable, Villafuerte catheter in place. PSYCH: Alert and oriented x3; mood and affect normal. NEUROLOGICAL: Cranial nerves grossly intact; no facial asymmetry, power and sensation grossly intact. LYMPHATICS: No lymph nodes palpable in the axilla and neck Investigations, reviewed in the clinical context: White count 7.1 hemoglobin 13.6 platelets 214 potassium 4.5 BUN 25 creatinine 1.80 Troponin I 0.036 UA protein 2+ EKG tracing personally reviewed by me-sinus rhythm, right bundle branch block Chest x-ray reported mild interstitial edema. No infiltrates Computed tomography scan of the brain-old right MCA territory infarct Previous testing: BUN 25 creatinine 1.13 on November Assessment: -This is a episode of patient becoming confused foggy and was found unconscious on the vehicle by the police and the opposite jacobo. Patient does not detect any events. Patient not eat in the whole day. Patient's creatinine is found to be elevated. -Acute renal failure, prerenal from dehydration patient's out of the sun it was very hot had not drank much water, improved -Coronary artery disease with a prior history of coronary bypass -Diabetes mellitus type 2 on oral hypoglycemic and non-good. -Essential hypertension, uncontrolled -Hyperlipidemia -Obesity BMI 30.0 -Suspect acute kidney injury from decreased oral intake patient did not eat in t he whole day. -Possible chronic kidney disease in the setting of nephrectomy, patient has proteinuria in the urine. -Troponin leak in the setting of an injury. No clinical evidence of acute coronary syndrome Plan: Patient be given IV fluids. Repeat labs in the morning. Resume home medications. Give the patient on telemetry to rule out any arrhythmia. Care was discussed with the patient. Questions answered. Nephrology consultation. Past Medical History Past Medical History: Cancer, Diabetes Mellitus, GERD/Reflux, Hyperlipidemia, Hypertension Additional Past Medical History / Comment(s): past hx colon polyps History of Any Multi-Drug Resistant Organisms: None Reported Past Surgical History: Appendectomy, Cholecystectomy, Coronary Bypass/CABG, Heart Catheterization Additional Past Surgical History / Comment(s): triple bypass 2008 Past Anesthesia/Blood Transfusion Reactions: No Reported Reaction Past Psychological History: No Psychological Hx Reported Past Alcohol Use History: None Reported Past Drug Use History: None Reported - Past Family History Mother Family Medical History: No Reported History Medications and Allergies Home Medications Medication Instructions Recorded Confirmed Type Atorvastatin [Lipitor] 80 mg PO DAILY 07/29/16 05/21/20 History Insulin Aspart [NovoLOG Flexpen] 20 units SQ AC-TID 11/03/18 05/21/20 History Insulin Glargine,Hum.rec.anlog 20 unit SQ HS 11/03/18 05/21/20 History [Lantus Solostar] Tamsulosin [Flomax] 0.4 mg PO DAILY 11/03/18 05/21/20 History cloNIDine HCL [Catapres] 0.1 mg PO TID 11/03/18 05/21/20 History metFORMIN HCL [Glucophage] 500 mg PO BID 11/03/18 05/21/20 History Metoprolol Tartrate 25 mg PO TID 11/18/18 05/21/20 History Clopidogrel Bisulfate [Plavix] 75 mg PO DAILY 05/21/20 05/21/20 History hydrALAZINE HCL 75 mg PO TID 05/21/20 05/21/20 History Allergies Allergy/AdvReac Type Severity Reaction Status Date / Time No Known Allergies Allergy Verified 11/18/18 17:14 Physical Exam Vitals: Vital Signs Temp Pulse Resp BP Pulse Ox 05/21/20 21:32 144/60 05/21/20 19:16 54 L 18 114/69 97 05/21/20 18:38 98.1 F 65 17 113/64 98 Intake and Output 05/21/20 05/21/20 05/21/20 06:59 14:59 22:59 Other: Weight 72.575 kg Results CBC & Chem 7: 05/21/20 18:38 05/21/20 18:38 Labs: Abnormal Lab Results - Last 24 Hours (Table) 05/21/20 05/21/20 05/21/20 Range/Units 18:38 18:38 18:38 RBC 4.22 L (4.30-5.90) m/uL Chloride 113 H (98-107) mmol/L Carbon Dioxide 21 L (22-30) mmol/L BUN 25 H (9-20) mg/dL Creatinine 1.80 H (0.66-1.25) mg/dL Glucose 118 H (74-99) mg/dL Calcium 10.5 H (8.4-10.2) mg/dL ALT 85 H (4-49) U/L Troponin I 0.036 H* (0.000-0.034) ng/mL Urine Protein (Negative) Urine Mucus (None) /hpf 05/21/20 Range/Units 21:41 RBC (4.30-5.90) m/uL Chloride (98-107) mmol/L Carbon Dioxide (22-30) mmol/L BUN (9-20) mg/dL Creatinine (0.66-1.25) mg/dL Glucose (74-99) mg/dL Calcium (8.4-10.2) mg/dL ALT (4-49) U/L Troponin I (0.000-0.034) ng/mL Urine Protein 2+ H (Negative) Urine Mucus Rare H (None) /hpf
[2020-05-21 22:49] LABS: Glucose,Whole Blood 163 mg/dL (75-99)
[2020-05-21] MEDS: SODIUM CHLORIDE 0.9% 1,000 ML IV SCH (22:55)
[2020-05-21] MEDS: ENOXAPARIN 40 MG/0.4 ML SYRINGE SQ SCH (22:55)
[2020-05-21] MEDS: INSULIN ASPART (NovoLOG) 100 UNIT/ML VIAL SQ SCH (22:56)
[2020-05-21] MEDS: INSULIN DETEMIR (LEVEMIR) 100 UNIT/ML SYR SQ SCH (22:56)
[2020-05-22 06:12] LABS: Glucose,Whole Blood 99 mg/dL (75-99)
[2020-05-22] MEDS: INSULIN ASPART (NovoLOG) 100 UNIT/ML VIAL SQ SCH ×7 (06:30→20:30)
[2020-05-22] MEDS: SODIUM CHLORIDE 0.9% 1,000 ML IV SCH ×4 (06:33→17:09)
[2020-05-22 07:32] LABS: Basophils % (A) 0 %; Eosinophils # (A) 0.2 k/uL (0-0.7); Eosinophils % (A) 3 %; HCT 40.6 % (39.0-53.0); HGB 13.4 gm/dL (13.0-17.5); Lymphocytes # (A) 1.8 k/uL (1.0-4.8); Lymphocytes % (A) 28 %; MCH 32.2 pg (25.0-35.0); MCV 97.5 fL (80.0-100.0); Mean Platelet Volume 7.2; Monocytes # (A) 0.4 k/uL (0-1.0); Monocytes % (A) 7 %; Neutrophils # (A) 3.8 k/uL (1.3-7.7); Neutrophils % (A) 60 %; Platelet Count 184 k/uL (150-450); RBC 4.17 m/uL (4.30-5.90); WBC 6.4 k/uL (3.8-10.6)
[2020-05-22 07:43] LABS: Albumin 3.6 g/dL (3.5-5.0); Calcium 10.1 mg/dL (8.4-10.2); Magnesium 1.8 mg/dL (1.6-2.3); Potassium 4.3 mmol/L (3.5-5.1); Total Bilirubin 0.6 mg/dL (0.2-1.3); Total Protein 6.4 g/dL (6.3-8.2)
[2020-05-22] MEDS ORDERED: HEPARIN SODIUM,PORCINE 10,000 UNIT/ML 1 ML VIAL IV ONE (11:25)
[2020-05-22] MEDS ORDERED: HEPARIN SODIUM,PORCINE 5,000 UNIT/ML 1 ML VIAL IV PRN (11:25)
[2020-05-22] MEDS: HEPARIN SOD,PORK IN 0.45% NACL 25,000 UNIT in 0.45% NACL 1 250ML.BAG IV SCH (11:46)
[2020-05-22] MEDS: CLOPIDOGREL 75 MG TAB PO SCH (11:57)
[2020-05-22] MEDS: ATORVASTATIN 80 MG TAB PO SCH (11:57)
[2020-05-22] MEDS: METOPROLOL TARTRATE 25 MG TAB PO SCH ×3 (11:57→21:02)
[2020-05-22] MEDS: TAMSULOSIN 0.4 MG CAP.ER.24H PO SCH (11:57)
[2020-05-22 11:58] LABS: Basophils % (A) 0 %; Eosinophils # (A) 0.1 k/uL (0-0.7); Eosinophils % (A) 2 %; HCT 40.7 % (39.0-53.0); HGB 13.3 gm/dL (13.0-17.5); Lymphocytes # (A) 1.1 k/uL (1.0-4.8); Lymphocytes % (A) 17 %; MCHC 32.7 g/dL (31.0-37.0); MCV 98.1 fL (80.0-100.0); Mean Platelet Volume 8.3; Monocytes # (A) 0.3 k/uL (0-1.0); Monocytes % (A) 5 %; Neutrophils # (A) 4.9 k/uL (1.3-7.7); Neutrophils % (A) 74 %; Platelet Count 181 k/uL (150-450); RBC 4.15 m/uL (4.30-5.90); WBC 6.6 k/uL (3.8-10.6)
[2020-05-22 12:17] LABS: Glucose,Whole Blood 83 mg/dL (75-99)
[2020-05-22 12:18] LABS: Partial Thromboplastin Time 25.4 sec (22.0-30.0); Prothrombin Time 10.7 sec (9.0-12.0)
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
[2020-05-22 14:15] LABS: Hemoglobin A1C 5.8 % (4.0-6.0)
[2020-05-22] MEDS: SODIUM CHLORIDE 0.45% 1,000 ML IV SCH (14:47)
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
[2020-05-22] MEDS: hydrALAZINE HCL 25 MG TAB PO SCH ×2 (16:47→21:02)
[2020-05-22 17:12] LABS: Glucose,Whole Blood 122 mg/dL (75-99)
--- NOTE | 2020-05-22 19:45 | P.PN ---
Progress Note - Text Progress Note Date: 05/22/20 Chief Complaint: Got foggy History of presenting complaint: This is a pleasant 74-year-old patient of Dr. Phil Maxwell. Chronic stable medical conditions include diabetes, GERD, hyperlipidemia, hypertension, coronary artery disease with a coronary bypass in 2008. Today patient was driving her granddaughter. This around 5:00. He did not eat in the whole day. His daughter at [place] to come over to eat. Patient does states that he became somewhat foggy. He doesn't remember what happened. Per the EMS reported to the opposite jacobo but patient is on course of the vehicle. There is no reported seizure activity. No tongue biting or incontinence. History of nephrectomy for renal carcinoma. So the patient and the ER today is back to himself. It is unusual for him not to eat. He was just very busy today. Patient's vital sign noted by the EMS was blood pressure 101/63, pulse of 53 respiration 18 pulse ox 98% Admitted with episode of unconsciousness/syncope in a patient not eat in the whole day. Found to be an acute kidney injury. Started on IV fluids. Today-laying in bed. Feeling a bit better. Oral intake fair. Review of systems: Was done for constitutional, cardiovascular, GI, pulmonary. relevant finding as above Active Medications Acetaminophen (Acetaminophen Tab 325 Mg Tab) 650 mg PO Q6HR PRN PRN Reason: Mild Pain or Fever > 100.5 Atorvastatin Calcium (Atorvastatin 80 Mg Tab) 80 mg PO DAILY [facility] Last Admin: 05/22/20 11:57 Dose: 80 mg Documented by: Clopidogrel Bisulfate (Clopidogrel 75 Mg Tab) 75 mg PO DAILY [facility] Last Admin: 05/22/20 11:57 Dose: 75 mg Documented by: Heparin Sodium (Porcine) (Heparin Sodium,Porcine 5,000 Unit/Ml 1 Ml Vial) 0 unit IV PER PROTOCOL PRN; Protocol PRN Reason: Low PTT Hydralazine HCl (Hydralazine Hcl 25 Mg Tab) 75 mg PO TID [facility] Last Admin: 05/22/20 16:47 Dose: 75 mg Documented by: Heparin Sodium/Sodium Chloride (25,000 unit/ Sodium Chloride) 250 mls @ 13.554 mls/hr IV .[id number] [facility]; Protocol Last Titration: 05/22/20 19:03 Dose: 0 units/kg/hr, 0 mls/hr Documented by: Sodium Chloride (Saline 0.45%) 1,000 mls @ 75 mls/hr IV .[id number] [facility] Last Admin: 05/22/20 14:47 Dose: Not Given Documented by: Sodium Chloride (Saline 0.9%) 1,000 mls @ 50 mls/hr IV .Q20H [facility] Last Admin: 05/22/20 17:08 Dose: 50 mls/hr Documented by: Sodium Chloride (Saline 0.9%) 1,000 mls @ 50 mls/hr IV .Q20H [facility] Last Admin: 05/22/20 17:09 Dose: Not Given Documented by: Cefazolin Sodium 2 gm/ Sodium (Chloride) 50 mls @ 100 mls/hr IVPB ONCE PRN PRN Reason: Pre-Op Stop: 05/23/20 23:00 Cefazolin Sodium 1 gm/ Sodium (Chloride) 250 mls @ 250 mls/hr IRRIGATION ONCE PRN PRN Reason: PRE-OP Stop: 05/23/20 23:00 Insulin Aspart (Insulin Aspart (Novolog) 100 Unit/Ml Vial) 8 unit SQ AC-TID [facility] Last Admin: 05/22/20 17:22 Dose: 6 unit Documented by: Insulin Aspart (Insulin Aspart (Novolog) 100 Unit/Ml Vial) 0 unit SQ [facility]; Protocol Last Admin: 05/22/20 17:07 Dose: Not Given Documented by: Insulin Detemir (Insulin Detemir (Levemir) 100 Unit/Ml Syr) 20 unit SQ HS [facility] Last Admin: 05/21/20 22:56 Dose: 20 unit Documented by: Metoprolol Tartrate (Metoprolol Tartrate 25 Mg Tab) 25 mg PO TID [facility] Last Admin: 05/22/20 16:26 Dose: 25 mg Documented by: Naloxone HCl (Naloxone 0.4 Mg/Ml 1 Ml Vial) 0.2 mg IV Q2M PRN PRN Reason: Opioid Reversal Tamsulosin HCl (Tamsulosin 0.4 Mg Cap.Er.24h) 0.4 mg PO DAILY [facility] Last Admin: 05/22/20 11:57 Dose: 0.4 mg Documented by: Past medical history: Diabetes mellitus type 2, GERD, hypertension, hyperlipidemia, coronary artery disease, kidney cancer with nephrectomy Social history: Smoked a pack a day for 10 years stopped about 35 years ago. 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 Lives with her son. Family history: Reviewed, noncontributory to presentation Physical examination: VITAL SIGNS: 98.3, 62, 20, 160/87, 98% on 2 L GENERAL: BMI 24.3, laying in bed, comfortable EYES: Pupils equal. Conjunctiva normal. HEENT: External appearance of nose and ears normal, oral cavity grossly normal. NECK: JVD not raised; masses not palpable. HEART: First and second heart sounds are normal; no edema. LUNGS: Respiratory rate normal; clear to auscultation. ABDOMEN: Soft, nontender, liver spleen not palpable, no masses palpable, Villafuerte catheter in place. PSYCH: Alert and oriented x3; mood and affect normal. Investigations, reviewed in the clinical context: May 22: White count 6.4 hemoglobin 13.4 platelets 184 potassium 4.3 bun 26 creatinine 1.6 to White count 7.1 hemoglobin 13.6 platelets 214 potassium 4.5 BUN 25 creatinine 1.80 Troponin I 0.036 UA protein 2+ EKG tracing personally reviewed by me-sinus rhythm, right bundle branch block Chest x-ray reported mild interstitial edema. No infiltrates Computed tomography scan of the brain-old right MCA territory infarct Previous testing: BUN 25 creatinine 1.13 on November Assessment: -This is a episode of patient becoming confused foggy and was found unconscious on the vehicle by the police and the opposite jacobo. Patient does not detect any events. Patient not eat in the whole day. Patient's creatinine is found to be elevated.. -Coronary artery disease with a prior history of coronary bypass -Diabetes mellitus type 2 on oral hypoglycemic . -Essential hypertension, accelerated -Hyperlipidemia -Obesity BMI 30.0 -acute kidney injury from decreased oral intake causing hypotension and hypoperfusion. patient had not eaten the whole day. - chronic kidney disease in the setting of nephrectomy, patient has proteinuria in the urine. Baseline creatinine of 1.2 -Troponin leak in the setting of an injury. No clinical evidence of acute coronary syndrome Plan: Continue IV fluids. Repeat labs in the morning. Blood pressures running high. Add amlodipine 5 mg.
[2020-05-22 20:53] LABS: Glucose,Whole Blood 78 mg/dL (75-99)
[2020-05-22] MEDS ORDERED: amLODIPine 5 MG TAB PO SCH (21:00)
[2020-05-22 22:30] LABS: Glucose,Whole Blood 151 mg/dL (75-99)
[2020-05-23 02:23] LABS: Glucose,Whole Blood 141 mg/dL (75-99)
[2020-05-23] MEDS: INSULIN DETEMIR (LEVEMIR) 100 UNIT/ML SYR SQ SCH ×2 (02:25→21:06)
[2020-05-23 02:31] LABS: Basophils % (A) 1 %; Eosinophils # (A) 0.3 k/uL (0-0.7); Eosinophils % (A) 4 %; HGB 13.3 gm/dL (13.0-17.5); Lymphocytes # (A) 1.4 k/uL (1.0-4.8); Lymphocytes % (A) 22 %; MCH 33.7 pg (25.0-35.0); MCV 96.4 fL (80.0-100.0); Mean Platelet Volume 7.1; Monocytes # (A) 0.4 k/uL (0-1.0); Monocytes % (A) 6 %; Neutrophils # (A) 4.4 k/uL (1.3-7.7); Neutrophils % (A) 66 %; Platelet Count 177 k/uL (150-450); RBC 3.94 m/uL (4.30-5.90); RDW 12.6 % (11.5-15.5); WBC 6.6 k/uL (3.8-10.6)
[2020-05-23 02:42] LABS: Albumin 3.5 g/dL (3.5-5.0); Calcium 9.8 mg/dL (8.4-10.2); Potassium 4.4 mmol/L (3.5-5.1); Total Bilirubin 0.4 mg/dL (0.2-1.3); Total Protein 6.6 g/dL (6.3-8.2)
[2020-05-23] MEDS: hydrALAZINE HCL 25 MG TAB PO SCH (05:01)
[2020-05-23] MEDS: SODIUM CHLORIDE 0.9% 1,000 ML IV SCH ×3 (05:02→08:29)
[2020-05-23 06:35] LABS: Glucose,Whole Blood 135 mg/dL (75-99)
[2020-05-23] MEDS ORDERED: ceFAZolin 1 GM in SODIUM CHLORIDE 0.9% 250 ML IRRIGATION PRN (07:00)
[2020-05-23] MEDS ORDERED: cloNIDine HCL 0.1 MG TAB PO STA (07:01)
[2020-05-23] MEDS: HEPARIN SOD,PORK IN 0.45% NACL 25,000 UNIT in 0.45% NACL 1 250ML.BAG IV SCH ×2 (07:07→07:08)
[2020-05-23] MEDS: SODIUM CHLORIDE 0.45% 1,000 ML IV SCH ×2 (07:13→15:17)
[2020-05-23] MEDS: CLOPIDOGREL 75 MG TAB PO SCH (08:28)
[2020-05-23] MEDS: TAMSULOSIN 0.4 MG CAP.ER.24H PO SCH (08:28)
[2020-05-23] MEDS: INSULIN ASPART (NovoLOG) 100 UNIT/ML VIAL SQ SCH ×7 (08:28→21:05)
[2020-05-23] MEDS: METOPROLOL TARTRATE 25 MG TAB PO SCH ×3 (08:29→21:06)
[2020-05-23] MEDS: ATORVASTATIN 80 MG TAB PO SCH (08:29)
[2020-05-23] MEDS: ENOXAPARIN 40 MG/0.4 ML SYRINGE SQ SCH (08:34)
[2020-05-23 08:35] LABS: Glucose,Whole Blood 186 mg/dL (75-99)
--- NOTE | 2020-05-23 09:51 | ECHOF ---
Referral Reason:LV function MEASUREMENTS -------- HEIGHT: 172.7 cm WEIGHT: 75.3 kg BP: RVIDd: 3.0 cm (< 3.3) IVSd: 1.7 cm (0.6 - 1.1) LVIDd: 5.2 cm (3.9 - 5.3) LVPWd: 1.4 cm (0.6 - 1.1) IVSs: 2.4 cm LVIDs: 3.2 cm LVPWs: 2.1 cm LAESV Index (A-L): 22.99 ml/m Ao Diam: 2.6 cm (2.0 - 3.7) AV Cusp: 1.9 cm (1.5 - 2.6) LA Diam: 3.6 cm (2.7 - 3.8) MV EXCURSION: 13.883 mm (> 18.000) MV EF SLOPE: 62 mm/s (70 - 150) EPSS: 1.6 cm MV E Dayne: 1.35 m/s MV DecT: 297 ms MV A Dayne: 0.70 m/s MV E/A Ratio: 1.93 AR PHT: 969 ms RAP: 5.00 mmHg RVSP: 16.42 mmHg FINDINGS -------- This was a technically good study. The left ventricular size is normal. There is moderate concentric left ventricular hypertrophy. O verall left ventricular systolic function is mild-moderately impaired with, an EF between 40 - 45 %. Normal LAP Grade 1 Diastolic Dysfunction. Apical anterior LV wall motion is hypokinetic. Apica l lateral LV wall motion is hypokinetic. Apical inferior LV wall motion is hypokinetic. Apical septum LV wall motion is hypokinetic. The right ventricle is normal in size. The left atrial size is normal. Normal LA size by volume 22+/-6 ml/m2. The right atrial size is normal. Lumason used The aortic valve is trileaflet and appears structurally normal. There is mild aortic regurgitation. The mitral valve is normal. [id number] mitral regurgitation is present. The tricuspid valve appears structurally normal. Mild tricuspid regurgitation present. Right vent ricular systolic pressure is normal at < 35 mmHg. Trace/mild (physiologic) pulmonic regurgitation. The thrombus is located in the apical portion of the left ventricle. The aortic root size is normal. IVC Not well visulized. There is no pericardial effusion. CONCLUSIONS -------- 1. The left ventricular size is normal. 2. There is moderate concentric left ventricular hypertrophy. 3. Overall left ventricular systolic function is mild-moderately impaired with, an EF between 40 - 45 %. 4. Normal LAP Grade 1 Diastolic Dysfunction. 5. Apical anterior LV wall motion is hypokinetic. 6. Apical lateral LV wall motion is hypokinetic. 7. Apical inferior LV wall motion is hypokinetic. 8. Apical septum LV wall motion is hypokinetic. 9. There is mild aortic regurgitation. 10. Eaii-vo-uyxjberc mitral regurgitation is present. 11. Mild tricuspid regurgitation present. 12. Trace/mild (physiologic) pulmonic regurgitation. 13. The thrombus is located in the apical portion of the left ventricle. 14. There is no pericardial effusion. GOODYEAR WELTER: Melissa Kay RDCS
--- NOTE | 2020-05-23 11:20 | P.PN ---
Subjective 74-year-old patient of Dr. Phil Maxwell. Chronic stable medical conditions include diabetes, GERD, hyperlipidemia, hypertension, coronary artery disease with a coronary bypass in 2008. Today patient was driving her granddaughter. This around 5:00. He did not eat in the whole day. His daughter at [place] to come over to eat. Patient does s tates that he became somewhat foggy. He doesn't remember what happened. Per the EMS reported to the opposite jacobo but patient is on course of the vehicle. There is no reported seizure activity. No tongue biting or incontinence. History of nephrectomy for renal carcinoma. So the patient and the ER today is back to himself. It is unusual for him not to eat. He was just very busy today. Patient's vital sign noted by the EMS was blood pressure 101/63, pulse of 53 respiration 18 pulse ox 98% Admitted with episode of unconsciousness/syncope in a patient not eat in the whole day. Found to be an acute kidney injury. Started on IV fluids. Today-laying in bed. Feeling a bit better. Oral intake fair. 05/23/2020 Patient baseline creatinine is around 1.3 presently around 1.6 patient's cre atinine stabilized at that level patient is receiving IV fluids at 50 mL per hour. 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 Constitutional: Denied any fatigue denied any fever. Cardio vascular: denied any chest pain, palpitations Gastrointestinal denied any nausea vomiting Pulmonary: Denied any shortness of breath cough Neurologic denied any new focal deficits All inpatient medications were reviewed and appropriate changes in these medications as dictated in the interval history and assessment and plan. Objective - Vital Signs Vital signs: Vital Signs Temp 98.0 F 05/23/20 08:00 Pulse 65 05/23/20 08:00 Resp 20 05/23/20 08:00 BP 190/86 05/23/20 08:00 Pulse Ox 99 05/23/20 08:00 Intake & Output 05/22/20 05/23/20 05/23/20 18:59 06:59 18:59 Intake Total 1329.2 826.443 272.304 Balance 1329.2 826.443 272.304 Weight 73.3 kg Intake: Intake, IV Titration 984.2 336.443 32.304 Amount Heparin Sod,Pork in 0.45% 54.2 186.443 32.304 NaCl 25,000 unit In 0.45 % NaCl 1 250ml.bag @ 18 UNITS/KG/HR 13.554 mls/hr IV .[id number] [facility] Rx#: [id number] Sodium Chloride 0.9% 1, 930 000 ml @ 130 mls/hr IV . Q7H42M [facility] Rx#:[id number] Sodium Chloride 0.9% 1, 150 000 ml @ 50 mls/hr IV . Q20H [facility] Rx#:[id number] Oral [id number] Other: # Voids 1 1 - Exam PHYSICAL EXAMINATION: GENERAL: The patient is alert and oriented x3, not in any acute distress. Well developed, well nourished. HEENT: Pupils are round and equally reacting to light. EOMI. No scleral icterus. No conjunctival pallor. Normocephalic, atraumatic. No pharyngeal erythema. No thyromegaly. CARDIOVASCULAR: S1 and S2 present. No murmurs, rubs, or gallops. PULMONARY: Chest is clear to auscultation, no wheezing or crackles. ABDOMEN: Soft, nontender, nondistended, normoactive bowel sounds. No palpable organomegaly. MUSCULOSKELETAL: No joint swelling or deformity. EXTREMITIES: No cyanosis, clubbing, or pedal edema. NEUROLOGICAL: Gross neurological examination did not reveal any focal deficits. SKIN: No rashes. - Labs CBC & Chem 7: 05/23/20 02:26 05/23/20 02:26 Labs: Abnormal Lab Results - Last 24 Hours (Table) 05/22/20 05/22/20 05/22/20 Range/Units 11:48 16:56 17:48 RBC 4.15 L (4.30-5.90) m/uL Hct (39.0-53.0) % APTT 106.7 H* (22.0-30.0) sec Chloride (98-107) mmol/L BUN (9-20) mg/dL Creatinine (0.66-1.25) mg/dL Glucose (74-99) mg/dL POC Glucose (mg/dL) 122 H (75-99) mg/dL ALT (4-49) U/L 05/22/20 05/23/20 05/23/20 Range/Units 22:26 02:22 02:26 RBC (4.30-5.90) m/uL Hct (39.0-53.0) % APTT 55.1 H (22.0-30.0) sec Chloride (98-107) mmol/L BUN (9-20) mg/dL Creatinine (0.66-1.25) mg/dL Glucose (74-99) mg/dL POC Glucose (mg/dL) 151 H 141 H (75-99) mg/dL ALT (4-49) U/L 05/23/20 05/23/20 05/23/20 Range/Units 02:26 02:26 06:29 RBC 3.94 L (4.30-5.90) m/uL Hct 38.0 L (39.0-53.0) % APTT (22.0-30.0) sec Chloride 114 H (98-107) mmol/L BUN 24 H (9-20) mg/dL Creatinine 1.61 H (0.66-1.25) mg/dL Glucose 159 H (74-99) mg/dL POC Glucose (mg/dL) 135 H (75-99) mg/dL ALT 80 H (4-49) U/L 05/23/20 Range/Units 08:27 RBC (4.30-5.90) m/uL Hct (39.0-53.0) % APTT (22.0-30.0) sec Chloride (98-107) mmol/L BUN (9-20) mg/dL Creatinine (0.66-1.25) mg/dL Glucose (74-99) mg/dL POC Glucose (mg/dL) 186 H (75-99) mg/dL ALT (4-49) U/L Assessment and Plan Plan: -Syncope: Possible etiology is being and dehydration and the aspirate cardiology patient also has a triphasic block for which the recommending pacemaker and unsure whether her that this contributed to his syncope... -Coronary artery disease with a prior history of coronary bypass -Left ventricle thrombus for which patient is on IV heparin -Congestive heart failure chronic systolic dysfunction without any acute exacerbation patient is presently hypovolemic -Diabetes mellitus type 2 on oral hypoglycemic . -Essential hypertension, accelerated, was started on Norvasc will monitor the blood pressure -Hyperlipidemia -Obesity BMI 30.0 -acute kidney injury from decreased oral intake causing hypotension and hypoperfusion. Improving with IV fluids nephrology evaluated the patient - chronic kidney disease in the setting of nephrectomy, patient has proteinuria in the urine. Baseline creatinine of 1.3 -Troponin elevation secondary to acute renal failure and chronic kidney disease. No clinical evidence of acute coronary syndrome
[2020-05-23 11:55] LABS: Glucose,Whole Blood 85 mg/dL (75-99)
[2020-05-23] MEDS: hydrALAZINE HCL 50 MG TAB PO SCH ×2 (15:16→21:06)
--- NOTE | 2020-05-23 15:26 | P.PN ---
Subjective Progress Note Date: 05/23/20 CHIEF COMPLAINT: Syncope HISTORY OF PRESENT ILLNESS: 05/22/2020 This is a 74-year-old male with a past medical history significant for coronary artery disease with previous CABG 3 in 2008, hypertension, hyperlipidemia, kidney cancer with left nephrectomy, and syncope. Patient follows in the office with Dr. Kim. We have been asked to see the patient in consultation for syncope. Patient states he was driving his car yesterday when he began to feel his vision becomes blurry. He states this lasted for about 10 minutes and he was attempting to pull his car over to the side of the road. The patient states the next thing he remembers was he woke up and EMS was by his vehicle. Apparently the patients car stopped in the wrong jacobo. Patient denies chest pain or pressure. Denies shortness of breath. Denies dizziness or lightheadedness today. Patient was hospitalized in October 2018 for similar syncopal episode. Patient was discharged home with an event monitor at that time which showed an episode of SVT. 05/23/2020 Patient examined this morning at the bedside. He denies chest pain or pressure. Denies shortness of breath. He remains on IV heparin secondary to an apical thrombus. Blood pressure is elevated with a systolic in the 190s. PHYSICAL EXAM: VITAL SIGNS: Reviewed. GENERAL: Well-developed in no acute distress. HEENT: Head is normocephalic. Pupils are equal, round. Sclerae anicteric. Mucous membranes of the mouth are moist. Neck supple. No JVD or thyromegaly LUNGS: Respirations even and unlabored. Lungs essentially clear to auscultation bilaterally. HEART: Regular rate and rhythm. S1 and S2 heard. EXTREMITIES: Normal range of motion. No clubbing or cyanosis. Peripheral pulses intact. No lower extremity edema ASSESSMENT: Syncope Apical LV thrombus Ischemic cardiomyopathy, ejection fraction 40% Abnormal troponins, not suggestive of acute coronary syndrome Coronary artery disease with previous CABG 3, 2008 History of kidney cancer, status post left nephrectomy Acute kidney injury Hypertension Hyperlipidemia PLAN: Continue current cardiac medications Increase hydralazine to 100 mg 3 times a day Continue IV heparin for apical LV thrombus Will check coverage for Eliquis with case management Discontinue Plavix Continue telemetry monitoring Patient to undergo PPM/AICD versus EP study on Tuesday with Dr. Munoz Further recommendations pending patient course Nurse practitioner note has been reviewed by physician. Signing provider agrees with the documented findings, assessment, and plan of care. Objective - Vital Signs Vital signs: Vital Signs Temp 98.0 F 05/23/20 08:00 Pulse 62 05/23/20 12:00 Resp 20 05/23/20 12:00 BP 178/84 05/23/20 12:00 Pulse Ox 98 05/23/20 12:00 Intake & Output 05/22/20 05/23/20 05/23/20 18:59 06:59 18:59 Intake Total 1329.2 826.443 859.454 Balance 1329.2 826.443 859.454 Weight 73.3 kg Intake: Intake, IV Titration 984.2 336.443 79.454 Amount Heparin Sod,Pork in 0.45% 54.2 186.443 79.454 NaCl 25,000 unit In 0.45 % NaCl 1 250ml.bag @ 18 UNITS/KG/HR 13.554 mls/hr IV .[id number] [facility] Rx#: [id number] Sodium Chloride 0.9% 1, 930 000 ml @ 130 mls/hr IV . Q7H42M [facility] Rx#:[id number] Sodium Chloride 0.9% 1, 150 000 ml @ 50 mls/hr IV . Q20H [facility] Rx#:[id number] Oral [id number] Other: # Voids 1 1 2 - Labs CBC & Chem 7: 05/23/20 02:26 05/23/20 02:26 Labs: Abnormal Lab Results - Last 24 Hours (Table) 05/22/20 05/22/20 05/22/20 Range/Units 16:56 17:48 22:26 RBC (4.30-5.90) m/uL Hct (39.0-53.0) % APTT 106.7 H* (22.0-30.0) sec Chloride (98-107) mmol/L BUN (9-20) mg/dL Creatinine (0.66-1.25) mg/dL Glucose (74-99) mg/dL POC Glucose (mg/dL) 122 H 151 H (75-99) mg/dL ALT (4-49) U/L 05/23/20 05/23/20 05/23/20 Range/Units 02:22 02:26 02:26 RBC 3.94 L (4.30-5.90) m/uL Hct 38.0 L (39.0-53.0) % APTT 55.1 H (22.0-30.0) sec Chloride (98-107) mmol/L BUN (9-20) mg/dL Creatinine (0.66-1.25) mg/dL Glucose (74-99) mg/dL POC Glucose (mg/dL) 141 H (75-99) mg/dL ALT (4-49) U/L 05/23/20 05/23/20 05/23/20 Range/Units 02:26 06:29 08:27 RBC (4.30-5.90) m/uL Hct (39.0-53.0) % APTT (22.0-30.0) sec Chloride 114 H (98-107) mmol/L BUN 24 H (9-20) mg/dL Creatinine 1.61 H (0.66-1.25) mg/dL Glucose 159 H (74-99) mg/dL POC Glucose (mg/dL) 135 H 186 H (75-99) mg/dL ALT 80 H (4-49) U/L 05/23/20 Range/Units 10:49 RBC (4.30-5.90) m/uL Hct (39.0-53.0) % APTT 42.2 H (22.0-30.0) sec Chloride (98-107) mmol/L BUN (9-20) mg/dL Creatinine (0.66-1.25) mg/dL Glucose (74-99) mg/dL POC Glucose (mg/dL) (75-99) mg/dL ALT (4-49) U/L
--- NOTE | 2020-05-23 15:47 | PN ---
PROGRESS NOTE Patient is seen for followup for acute kidney injury on top of chronic kidney disease. Renal function has improved. Patient was admitted to the hospital with lightheadedness, hypotension. His creatinine has improved from 1.8 to 1.6 mg/dL. The patient does have underlying CKD with solitary kidney; however, previous creatinine was as low as 1.3 in November of 2018. Patient was noted to have an apical thrombus in the left ventricle on echocardiogram. He is currently being anticoagulated. PHYSICAL EXAMINATION: On examination today, blood pressure was 190/86, heart rate 65 per minute. He is afebrile. EXAMINATION OF THE HEART: S1 and S2. EXAMINATION OF LUNGS: Bilateral breath sounds are heard. ABDOMEN: Soft, non-tender. Examination of lower extremities shows no evidence of edema. ADJUSTMENT SUPERVISOR exam is grossly intact. LABS: Labs show sodium of 142 from today, potassium 4.4, chloride 114, BUN 24, creatinine 1.6. ASSESSMENT: 1. Acute kidney injury, prerenal, currently improved. This may be close to his new baseline. We will check his office records. 2. Chronic kidney disease, stage 3, secondary to diabetic nephropathy with solitary kidney. 3. History of left renal cell cancer, status post left nephrectomy. 4. Hypertension, currently uncontrolled. Increase Norvasc to 5 mg b.i.d. We can decrease the IV fluids. 5. Apical thrombus in the left ventricle, currently maintained on anticoagulation. 6. Syncope, most likely related to hypotension, as patient states his blood pressure was in the 80s when EMS first arrived. PLAN: Decrease IV fluids. Increase Norvasc to 5 mg b.i.d. Follow up as outpatient for CKD. MMODL / IJN: [id number] /
[2020-05-23 16:56] LABS: Glucose,Whole Blood 136 mg/dL (75-99)
[2020-05-23 20:58] LABS: Glucose,Whole Blood 122 mg/dL (75-99)
[2020-05-23] MEDS: amLODIPine 5 MG TAB PO SCH (21:06)
[2020-05-24] MEDS: HEPARIN SOD,PORK IN 0.45% NACL 25,000 UNIT in 0.45% NACL 1 250ML.BAG IV SCH (05:00)
[2020-05-24 07:07] LABS: Glucose,Whole Blood 135 mg/dL (75-99)
[2020-05-24 07:44] LABS: Basophils # (A) 0.1 k/uL (0-0.2); Basophils % (A) 1 %; Eosinophils # (A) 0.3 k/uL (0-0.7); Eosinophils % (A) 3 %; HCT 46.3 % (39.0-53.0); HGB 15.7 gm/dL (13.0-17.5); Lymphocytes # (A) 1.6 k/uL (1.0-4.8); Lymphocytes % (A) 16 %; MCH 32.8 pg (25.0-35.0); MCHC 33.9 g/dL (31.0-37.0); MCV 96.8 fL (80.0-100.0); Mean Platelet Volume 6.7; Monocytes # (A) 0.6 k/uL (0-1.0); Monocytes % (A) 6 %; Neutrophils # (A) 7.6 k/uL (1.3-7.7); Neutrophils % (A) 74 %; Platelet Count 190 k/uL (150-450); RBC 4.78 m/uL (4.30-5.90); RDW 12.7 % (11.5-15.5); WBC 10.3 k/uL (3.8-10.6)
[2020-05-24] MEDS: SODIUM CHLORIDE 0.9% 1,000 ML IV SCH ×3 (07:57→11:10)
[2020-05-24] MEDS: INSULIN ASPART (NovoLOG) 100 UNIT/ML VIAL SQ SCH ×7 (07:57→20:44)
[2020-05-24] MEDS: SODIUM CHLORIDE 0.45% 1,000 ML IV SCH (07:57)
[2020-05-24 08:15] LABS: Calcium 10.8 mg/dL (8.4-10.2); Potassium 4.1 mmol/L (3.5-5.1)
[2020-05-24] MEDS: METOPROLOL TARTRATE 25 MG TAB PO SCH ×3 (08:41→22:50)
[2020-05-24] MEDS: amLODIPine 5 MG TAB PO SCH ×2 (08:41→21:11)
[2020-05-24] MEDS: hydrALAZINE HCL 50 MG TAB PO SCH ×3 (08:41→21:10)
[2020-05-24] MEDS: ATORVASTATIN 80 MG TAB PO SCH (08:41)
[2020-05-24] MEDS: TAMSULOSIN 0.4 MG CAP.ER.24H PO SCH (08:41)
--- NOTE | 2020-05-24 08:47 | P.PN ---
Subjective 74-year-old patient of Dr. Phli Maxwell. Chronic stable medical conditions include diabetes, GERD, hyperlipidemia, hypertension, coronary artery disease with a coronary bypass in 2008. Today patient was driving her granddaughter. This around 5:00. He did not eat in the whole day. His daughter at [place] to come over to eat. Patient does s tates that he became somewhat foggy. He doesn't remember what happened. Per the EMS reported to the opposite jacobo but patient is on course of the vehicle. There is no reported seizure activity. No tongue biting or incontinence. History of nephrectomy for renal carcinoma. So the patient and the ER today is back to himself. It is unusual for him not to eat. He was just very busy today. Patient's vital sign noted by the EMS was blood pressure 101/63, pulse of 53 respiration 18 pulse ox 98% Admitted with episode of unconsciousness/syncope in a patient not eat in the whole day. Found to be an acute kidney injury. Started on IV fluids. Today-laying in bed. Feeling a bit better. Oral intake fair. 05/23/2020 Patient baseline creatinine is around 1.3 presently around 1.6 patient's cre atinine stabilized at that level patient is receiving IV fluids at 50 mL per hour. 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 05/24/2020 Patient the still on 50 mL of normal saline, IV fluids as per nephrology creatinine continued to improve. Patient will undergo EP study and possible pacemaker placement on Tuesday. Patient remains on IV heparin patient blood pressures still elevated patient today is on 100 mg 3 times a day of hydralazine along with amlodipine. Constitutional: Denied any fatigue denied any fever. Cardio vascular: denied any chest pain, palpitations Gastrointestinal denied any nausea vomiting Pulmonary: Denied any shortness of breath cough Neurologic denied any new focal deficits All inpatient medications were reviewed and appropriate changes in these m edications as dictated in the interval history and assessment and plan. Objective - Vital Signs Vital signs: Vital Signs Temp 98.8 F 05/24/20 08:39 Pulse 68 05/24/20 08:39 Resp 16 05/24/20 08:39 BP 198/96 05/24/20 08:39 Pulse Ox 97 05/24/20 08:39 Intake & Output 05/23/20 05/24/20 05/24/20 18:59 06:59 18:59 Intake Total 1399.454 192.58 Balance 1399.454 192.58 Weight 72.5 kg Intake: Intake, IV Titration 79.454 192.58 Amount Heparin Sod,Pork in 0.45% 79.454 192.58 NaCl 25,000 unit In 0.45 % NaCl 1 250ml.bag @ 18 UNITS/KG/HR 13.554 mls/hr IV .[id number] [facility] Rx#: [id number] Oral 1320 Other: Voiding Method Toilet # Voids 2 1 - Exam PHYSICAL EXAMINATION: GENERAL: The patient is alert and oriented x3, not in any acute distress. Well developed, well nourished. HEENT: Pupils are round and equally reacting to light. EOMI. No scleral icterus. No conjunctival pallor. Normocephalic, atraumatic. No pharyngeal erythema. No thyromegaly. CARDIOVASCULAR: S1 and S2 present. No murmurs, rubs, or gallops. PULMONARY: Chest is clear to auscultation, no wheezing or crackles. ABDOMEN: Soft, nontender, nondistended, normoactive bowel sounds. No palpable organomegaly. MUSCULOSKELETAL: No joint swelling or deformity. EXTREMITIES: No cyanosis, clubbing, or pedal edema. NEUROLOGICAL: Gross neurological examination did not reveal any focal deficits. SKIN: No rashes. - Labs CBC & Chem 7: 05/24/20 07:28 05/24/20 07:28 Labs: Abnormal Lab Results - Last 24 Hours (Table) 05/23/20 05/23/20 05/23/20 Range/Units 10:49 16:55 17:27 APTT 42.2 H 50.1 H (22.0-30.0) sec Chloride (98-107) mmol/L Creatinine (0.66-1.25) mg/dL Glucose (74-99) mg/dL POC Glucose (mg/dL) 136 H (75-99) mg/dL Calcium (8.4-10.2) mg/dL 05/23/20 05/24/20 05/24/20 Range/Units 20:40 07:05 07:28 APTT (22.0-30.0) sec Chloride 112 H (98-107) mmol/L Creatinine 1.30 H (0.66-1.25) mg/dL Glucose 148 H (74-99) mg/dL POC Glucose (mg/dL) 122 H 135 H (75-99) mg/dL Calcium 10.8 H (8.4-10.2) mg/dL Assessment and Plan Plan: -Syncope: Possible etiology is being and dehydration and as per cardiology patient also has a triphasic block for which the recommending pacemaker and unsure whether her that this contributed to his syncope... -Coronary artery disease with a prior history of coronary bypass -Left ventricle thrombus for which patient is on IV heparin -Congestive heart failure chronic systolic dysfunction without any acute exacerbation is bit hypovolemic and used to be on IV fluids nephrology is following the patient -Diabetes mellitus type 2 on oral hypoglycemic . -Essential hypertension, accelerated, was started on Norvasc, hydralazine. -Hyperlipidemia -Obesity BMI 30.0 -acute kidney injury from decreased oral intake causing hypotension and hypoperfusion. Improving with IV fluids nephrology evaluated the patient and patient's creatinine improved presently at his baseline of 1.3 - chronic kidney disease in the setting of nephrectomy, patient has proteinuria in the urine. Baseline creatinine of 1.3 -Troponin elevation secondary to acute renal failure and chronic kidney disease. No clinical evidence of acute coronary syndrome
[2020-05-24] MEDS ORDERED: FUROSEMIDE 10 MG/ML 2 ML VIAL IV ONE (09:50)
[2020-05-24] MEDS ORDERED: hydrALAZINE HCL 20 MG/ML 1 ML VIAL IVP PRN (09:52)
--- NOTE | 2020-05-24 09:53 | P.PN ---
Subjective Patient is seen in follow-up for acute kidney injury on chronic kidney disease. Renal function better. Good urine output. Maintained on anticoagulation for LV thrombus. Calcium noted to be elevated at 10.8 today. No chest pain or shortness of breath. Blood pressure high. Vital signs are stable. Blood pressure high. General: The patient appeared well nourished and normally developed. HEENT: Head exam is unremarkable. Neck is without jugular venous distension. LUNGS: Breath sounds decreased. HEART: Rate and Rhythm are regular. ABDOMEN: Soft, nontender. EXTREMITITES: No edema. Objective - Vital Signs Vital signs: Vital Signs Temp 98.8 F 05/24/20 08:39 Pulse 68 05/24/20 08:39 Resp 16 05/24/20 08:39 BP 198/96 05/24/20 08:39 Pulse Ox 97 05/24/20 08:39 Intake & Output 05/23/20 05/24/20 05/24/20 18:59 06:59 18:59 Intake Total 1399.454 192.58 120 Balance 1399.454 192.58 120 Weight 72.5 kg Intake: Intake, IV Titration 79.454 192.58 Amount Heparin Sod,Pork in 0.45% 79.454 192.58 NaCl 25,000 unit In 0.45 % NaCl 1 250ml.bag @ 18 UNITS/KG/HR 13.554 mls/hr IV .[id number] [facility] Rx#: [id number] Oral 1320 120 Other: Voiding Method Toilet # Voids 2 1 1 - Labs CBC & Chem 7: 05/24/20 07:28 05/24/20 07:28 Labs: Abnormal Lab Results - Last 24 Hours (Table) 05/23/20 05/23/20 05/23/20 Range/Units 10:49 16:55 17:27 APTT 42.2 H 50.1 H (22.0-30.0) sec Chloride (98-107) mmol/L Creatinine (0.66-1.25) mg/dL Glucose (74-99) mg/dL POC Glucose (mg/dL) 136 H (75-99) mg/dL Calcium (8.4-10.2) mg/dL 05/23/20 05/24/20 05/24/20 Range/Units 20:40 07:05 07:28 APTT (22.0-30.0) sec Chloride 112 H (98-107) mmol/L Creatinine 1.30 H (0.66-1.25) mg/dL Glucose 148 H (74-99) mg/dL POC Glucose (mg/dL) 122 H 135 H (75-99) mg/dL Calcium 10.8 H (8.4-10.2) mg/dL Assessment and Plan Plan: Assessment: 1. Acute kidney injury mostly prerenal, improved with IV hydration. Creatinine down to 1.3 today. 2. Chronic kidney disease stage IIIA secondary to diabetic kidney disease and solitary right kidney. 3. LV thrombus maintained on heparin drip. Cardiology following. Pacemaker versus EP study on Tuesday. 4. Chronic systolic CHF with ejection fraction of 40-45% with mild to moderate mitral regurgitation. 5. History of left renal cancer status post nephrectomy. 6. Hypercalcemia. Unclear cause. No evidence of hypovolemia. 7. Hypertension with chronic kidney disease. Blood pressure high. 8. Diabetes mellitus. Plan: Maintain normal saline at 50 mL an hour. Add losartan 25 mg twice a day. Check further workup for hypercalcemia including PTH and vitamin D level. Lasix 20 mg IV once today. Repeat electrolytes in the morning.
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
[2020-05-24] MEDS: LOSARTAN 25 MG TAB PO SCH ×2 (11:07→21:10)
[2020-05-24] MEDS: APIXABAN 5 MG TAB PO SCH ×2 (11:08→21:11)
[2020-05-24 12:10] LABS: Glucose,Whole Blood 202 mg/dL (75-99)
[2020-05-24 16:55] LABS: Glucose,Whole Blood 147 mg/dL (75-99)
[2020-05-24 16:59] LABS: Protein, Total 7.5 g/dL (6.2-8.2)
[2020-05-24 20:20] LABS: Glucose,Whole Blood 161 mg/dL (75-99)
[2020-05-24] MEDS: INSULIN DETEMIR (LEVEMIR) 100 UNIT/ML SYR SQ SCH (21:11)
[2020-05-25 07:04] LABS: Glucose,Whole Blood 145 mg/dL (75-99)
[2020-05-25] MEDS: LOSARTAN 25 MG TAB PO SCH (08:00)
[2020-05-25] MEDS: ATORVASTATIN 80 MG TAB PO SCH (08:01)
[2020-05-25] MEDS: hydrALAZINE HCL 50 MG TAB PO SCH ×3 (08:01→20:39)
[2020-05-25] MEDS: amLODIPine 5 MG TAB PO SCH ×2 (08:01→20:40)
[2020-05-25] MEDS: APIXABAN 5 MG TAB PO SCH ×2 (08:01→20:39)
[2020-05-25] MEDS: TAMSULOSIN 0.4 MG CAP.ER.24H PO SCH (08:01)
[2020-05-25] MEDS: METOPROLOL TARTRATE 25 MG TAB PO SCH ×3 (08:01→20:40)
[2020-05-25] MEDS: INSULIN ASPART (NovoLOG) 100 UNIT/ML VIAL SQ SCH ×7 (08:01→20:40)
[2020-05-25] MEDS: SODIUM CHLORIDE 0.9% 1,000 ML IV SCH ×2 (08:02→08:03)
[2020-05-25 08:34] LABS: Basophils % (A) 1 %; Eosinophils # (A) 0.2 k/uL (0-0.7); Eosinophils % (A) 3 %; HCT 41.2 % (39.0-53.0); HGB 14.2 gm/dL (13.0-17.5); Lymphocytes % (A) 15 %; MCH 32.9 pg (25.0-35.0); MCHC 34.4 g/dL (31.0-37.0); MCV 95.6 fL (80.0-100.0); Mean Platelet Volume 7.2; Monocytes # (A) 0.4 k/uL (0-1.0); Monocytes % (A) 7 %; Neutrophils # (A) 4.8 k/uL (1.3-7.7); Neutrophils % (A) 73 %; Platelet Count 168 k/uL (150-450); RBC 4.31 m/uL (4.30-5.90); RDW 12.7 % (11.5-15.5); WBC 6.6 k/uL (3.8-10.6)
[2020-05-25 08:49] LABS: Albumin 3.7 g/dL (3.5-5.0); Calcium 10.1 mg/dL (8.4-10.2); Magnesium 1.8 mg/dL (1.6-2.3); Potassium 4.2 mmol/L (3.5-5.1); Total Bilirubin 0.6 mg/dL (0.2-1.3); Total Protein 6.8 g/dL (6.3-8.2)
--- NOTE | 2020-05-25 09:05 | P.PN ---
Subjective 74-year-old patient of Dr. Phil Maxwell. Chronic stable medical conditions include diabetes, GERD, hyperlipidemia, hypertension, coronary artery disease with a coronary bypass in 2008. Today patient was driving her granddaughter. This around 5:00. He did not eat in the whole day. His daughter at [place] to come over to eat. Patient does s tates that he became somewhat foggy. He doesn't remember what happened. Per the EMS reported to the opposite jacobo but patient is on course of the vehicle. There is no reported seizure activity. No tongue biting or incontinence. History of nephrectomy for renal carcinoma. So the patient and the ER today is back to himself. It is unusual for him not to eat. He was just very busy today. Patient's vital sign noted by the EMS was blood pressure 101/63, pulse of 53 respiration 18 pulse ox 98% Admitted with episode of unconsciousness/syncope in a patient not eat in the whole day. Found to be an acute kidney injury. Started on IV fluids. Today-laying in bed. Feeling a bit better. Oral intake fair. 05/23/2020 Patient baseline creatinine is around 1.3 presently around 1.6 patient's cre atinine stabilized at that level patient is receiving IV fluids at 50 mL per hour. 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 05/24/2020 Patient the still on 50 mL of normal saline, IV fluids as per nephrology creatinine continued to improve. Patient will undergo EP study and possible pacemaker placement on Tuesday. Patient remains on IV heparin patient blood pressures still elevated patient today is on 100 mg 3 times a day of hydralazine along with amlodipine. 05/25/2020 IV fluids will discuss reviewed. Patient blood pressure is bit better after losartan. Mildly elevated calcium which has come down now. PTH is high. Constitutional: Denied any fatigue denied any fever. Cardio vascular: denied any chest pain, palpitations Gastrointestinal denied any nausea vomiting Pulmonary: Denied any shortness of breath cough Neurologic denied any new focal deficits All inpatient medications were reviewed and appropriate changes in these medications as dictated in the interval history and assessment and plan. Objective - Vital Signs Vital signs: Vital Signs Temp 98.1 F 05/25/20 07:58 Pulse 72 05/25/20 07:58 Resp 16 05/25/20 07:58 BP 182/93 05/25/20 07:58 Pulse Ox 95 05/25/20 07:58 Intake & Output 05/24/20 05/25/20 05/25/20 18:59 06:59 18:59 Intake Total 1160 Output Total 325 Balance 835 Weight 72.5 kg Intake: Intake, IV Titration 400 Amount Sodium Chloride 0.9% 1, 400 000 ml @ 50 mls/hr IV . Q20H [facility] Rx#:[id number] Oral 760 Output: Urine 325 Other: Voiding Method Toilet Toilet # Voids 1 2 - Exam PHYSICAL EXAMINATION: GENERAL: The patient is alert and oriented x3, not in any acute distress. Well developed, well nourished. HEENT: Pupils are round and equally reacting to light. EOMI. No scleral icterus. No conjunctival pallor. Normocephalic, atraumatic. No pharyngeal erythema. No thyromegaly. CARDIOVASCULAR: S1 and S2 present. No murmurs, rubs, or gallops. PULMONARY: Chest is clear to auscultation, no wheezing or crackles. ABDOMEN: Soft, nontender, nondistended, normoactive bowel sounds. No palpable organomegaly. MUSCULOSKELETAL: No joint swelling or deformity. EXTREMITIES: No cyanosis, clubbing, or pedal edema. NEUROLOGICAL: Gross neurological examination did not reveal any focal deficits. SKIN: No rashes. - Labs CBC & Chem 7: 05/25/20 07:56 05/25/20 07:56 Labs: Abnormal Lab Results - Last 24 Hours (Table) 05/24/20 05/24/20 05/24/20 Range/Units 07:28 07:28 12:08 Chloride (98-107) mmol/L BUN (9-20) mg/dL Creatinine (0.66-1.25) mg/dL Glucose (74-99) mg/dL POC Glucose (mg/dL) 202 H (75-99) mg/dL AST (17-59) U/L ALT (4-49) U/L Vitamin D 25-Hydroxy 20.5 L (30.0-100.0) ng/mL PTH Intact 115.4 H (14.0-72.0) pg/mL 05/24/20 05/24/20 05/25/20 Range/Units 16:53 20:18 07:03 Chloride (98-107) mmol/L BUN (9-20) mg/dL Creatinine (0.66-1.25) mg/dL Glucose (74-99) mg/dL POC Glucose (mg/dL) 147 H 161 H 145 H (75-99) mg/dL AST (17-59) U/L ALT (4-49) U/L Vitamin D 25-Hydroxy (30.0-100.0) ng/mL PTH Intact (14.0-72.0) pg/mL 05/25/20 Range/Units 07:56 Chloride 115 H (98-107) mmol/L BUN 22 H (9-20) mg/dL Creatinine 1.34 H (0.66-1.25) mg/dL Glucose 158 H (74-99) mg/dL POC Glucose (mg/dL) (75-99) mg/dL AST 61 H (17-59) U/L ALT 85 H (4-49) U/L Vitamin D 25-Hydroxy (30.0-100.0) ng/mL PTH Intact (14.0-72.0) pg/mL Assessment and Plan Plan: -Syncope: Possible etiology is being and dehydration and as per cardiology patient also has a triphasic block for which the recommending pacemaker and unsure whether her that this contributed to his syncope... IV fluids are being discontinued and patient's serum creatinine is at his baseline. 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 -Essential hypertension, accelerated, was started on Norvasc, hydralazine. Patient was started on losartan -Hyperlipidemia -Obesity BMI 30.0 -acute kidney injury from decreased oral intake causing hypotension and hypoperfusion. Improved - chronic kidney disease in the setting of nephrectomy, patient has proteinuria in the urine. Baseline creatinine of 1.3 -Troponin elevation secondary to acute renal failure and chronic kidney disease. No clinical evidence of acute coronary syndrome
--- NOTE | 2020-05-25 09:17 | P.PN ---
Subjective Patient is seen in follow-up for acute kidney injury on chronic kidney disease. Renal function stable. Good urine output. No chest pain or shortness of breath. Calcium level down to 10.1. Vital signs are stable. Blood pressure high. General: The patient appeared well nourished and normally developed. HEENT: Head exam is unremarkable. Neck is without jugular venous distension. LUNGS: Breath sounds decreased. HEART: Rate and Rhythm are regular. ABDOMEN: Soft, nontender. EXTREMITITES: No edema. Objective - Vital Signs Vital signs: Vital Signs Temp 98.1 F 05/25/20 07:58 Pulse 72 05/25/20 07:58 Resp 16 05/25/20 07:58 BP 182/93 05/25/20 07:58 Pulse Ox 95 05/25/20 07:58 Intake & Output 05/24/20 05/25/20 05/25/20 18:59 06:59 18:59 Intake Total 1160 Output Total 325 Balance 835 Weight 72.5 kg Intake: Intake, IV Titration 400 Amount Sodium Chloride 0.9% 1, 400 000 ml @ 50 mls/hr IV . Q20H [facility] Rx#:[id number] Oral 760 Output: Urine 325 Other: Voiding Method Toilet Toilet # Voids 1 2 - Labs CBC & Chem 7: 05/25/20 07:56 05/25/20 07:56 Labs: Abnormal Lab Results - Last 24 Hours (Table) 05/24/20 05/24/20 05/24/20 Range/Units 07:28 07:28 12:08 Chloride (98-107) mmol/L BUN (9-20) mg/dL Creatinine (0.66-1.25) mg/dL Glucose (74-99) mg/dL POC Glucose (mg/dL) 202 H (75-99) mg/dL AST (17-59) U/L ALT (4-49) U/L Vitamin D 25-Hydroxy 20.5 L (30.0-100.0) ng/mL PTH Intact 115.4 H (14.0-72.0) pg/mL 05/24/20 05/24/20 05/25/20 Range/Units 16:53 20:18 07:03 Chloride (98-107) mmol/L BUN (9-20) mg/dL Creatinine (0.66-1.25) mg/dL Glucose (74-99) mg/dL POC Glucose (mg/dL) 147 H 161 H 145 H (75-99) mg/dL AST (17-59) U/L ALT (4-49) U/L Vitamin D 25-Hydroxy (30.0-100.0) ng/mL PTH Intact (14.0-72.0) pg/mL 05/25/20 Range/Units 07:56 Chloride 115 H (98-107) mmol/L BUN 22 H (9-20) mg/dL Creatinine 1.34 H (0.66-1.25) mg/dL Glucose 158 H (74-99) mg/dL POC Glucose (mg/dL) (75-99) mg/dL AST 61 H (17-59) U/L ALT 85 H (4-49) U/L Vitamin D 25-Hydroxy (30.0-100.0) ng/mL PTH Intact (14.0-72.0) pg/mL Assessment and Plan Plan: Assessment: 1. Acute kidney injury mostly prerenal, improved with IV hydration. Creatinine stable at 1.34 today. 2. Chronic kidney disease stage IIIA secondary to diabetic kidney disease and solitary right kidney. 3. LV thrombus maintained on anticoagulation. Cardiology following. Pacemaker versus EP study on Tuesday. 4. Chronic systolic CHF with ejection fraction of 40-45% with mild to moderate mitral regurgitation. 5. History of left renal cancer status post nephrectomy. 6. Hypercalcemia. Unclear cause. No evidence of hypovolemia. Better. PTH 115.4. Vitamin D 20.5. 7. Hypertension with chronic kidney disease. Blood pressure high. 8. Diabetes mellitus. Plan: Hep-Lock IV fluids. Increase losartan to 50 mg twice daily. Follow-up pending workup for hypercalcemia. Continue to monitor renal function and urine output.
[2020-05-25 11:51] LABS: Glucose,Whole Blood 125 mg/dL (75-99)
--- NOTE | 2020-05-25 12:51 | P.PN ---
Subjective This is a pleasant 74-year-old male past medical history significant for coronary artery disease status post bypass grafting 3 in 2008, hypertension, dyslipidemia, diabetes mellitus, renal carcinoma status post left nephrectomy and syncope. He follows in the office with Dr. Kim. He is seen and examined resting comfortably lying flat in bed in no acute distress. He denies any symptoms of chest pain, shortness of breath, dizziness or palpitations. He states he's been up to the bathroom several times through the night. Blood pressure 182/93 heart rate 72 afebrile maintaining oxygen saturation on nasal cannula. Laboratory data reviewed, CBC unremarkable, sodium 142, potassium 4.2, creatinine 1.34 and magnesium 1.8. Currently maintained on amlodipine 5 mg twice a day, Eliquis 5 mg twice a day, atorvastatin 80 mg daily, hydralazine 100 mg 3 times a day, losartan 50 mg twice a day and Lopressor 25 mg 3 times a day. He was seen in evaluation by Dr. Munoz yesterday and plans for diagnostic EP study with possible pacemaker versus ICD implantation. Telemetry tracings reveal frequent PVCs and an episode of sinus tachycardia last evening. The patient does not recall feeling any symptoms at that time. GENERAL: Well-appearing, well-nourished and in no acute distress. NECK: Supple without JVD or thyromegaly. LUNGS: Breath sounds clear to auscultation bilaterally. Respiration equal and unlabored. No wheezes, rales or rhonchi. HEART: Regular rate and rhythm without murmurs, rubs or gallops. S1 and S2 heard. EXTREMITIES: Normal range of motion, no edema. No clubbing or cyanosis. Peripheral pulses intact. ASSESSMENT Syncope Coronary artery disease status post bypass grafting Ischemic cardiomyopathy Chronic systolic heart failure Chronic kidney disease Renal carcinoma status post left nephrectomy Hypertension Dyslipidemia Diabetes mellitus PLAN Nothing by mouth after midnight tonight for EP study with possible pacemaker/ICD insertion tomorrow. Further recommendations to follow based upon clinical course. Nurse Practitioner note has been reviewed, I agree with a documented findings and plan of care. Patient was seen and examined. Objective - Vital Signs Vital signs: Vital Signs Temp 98.1 F 05/25/20 07:58 Pulse 72 05/25/20 08:00 Resp 16 05/25/20 08:00 BP 182/93 05/25/20 07:58 Pulse Ox 95 05/25/20 07:58 Intake & Output 05/24/20 05/25/20 05/25/20 18:59 06:59 18:59 Intake Total 1160 240 Output Total 325 Balance 835 240 Weight 72.5 kg Intake: Intake, IV Titration 400 Amount Sodium Chloride 0.9% 1, 400 000 ml @ 50 mls/hr IV . Q20H [facility] Rx#:[id number] Oral 760 240 Output: Urine 325 Other: Voiding Method Toilet Toilet Toilet # Voids 1 2 - Labs CBC & Chem 7: 05/25/20 07:56 05/25/20 07:56 Labs: Abnormal Lab Results - Last 24 Hours (Table) 05/24/20 05/24/20 05/24/20 Range/Units 07:28 07:28 12:08 Chloride (98-107) mmol/L BUN (9-20) mg/dL Creatinine (0.66-1.25) mg/dL Glucose (74-99) mg/dL POC Glucose (mg/dL) 202 H (75-99) mg/dL AST (17-59) U/L ALT (4-49) U/L Vitamin D 25-Hydroxy 20.5 L (30.0-100.0) ng/mL PTH Intact 115.4 H (14.0-72.0) pg/mL 05/24/20 05/24/20 05/25/20 Range/Units 16:53 20:18 07:03 Chloride (98-107) mmol/L BUN (9-20) mg/dL Creatinine (0.66-1.25) mg/dL Glucose (74-99) mg/dL POC Glucose (mg/dL) 147 H 161 H 145 H (75-99) mg/dL AST (17-59) U/L ALT (4-49) U/L Vitamin D 25-Hydroxy (30.0-100.0) ng/mL PTH Intact (14.0-72.0) pg/mL 05/25/20 Range/Units 07:56 Chloride 115 H (98-107) mmol/L BUN 22 H (9-20) mg/dL Creatinine 1.34 H (0.66-1.25) mg/dL Glucose 158 H (74-99) mg/dL POC Glucose (mg/dL) (75-99) mg/dL AST 61 H (17-59) U/L ALT 85 H (4-49) U/L Vitamin D 25-Hydroxy (30.0-100.0) ng/mL PTH Intact (14.0-72.0) pg/mL
[2020-05-25 16:53] LABS: Glucose,Whole Blood 144 mg/dL (75-99)
[2020-05-25 20:17] LABS: Glucose,Whole Blood 130 mg/dL (75-99)
[2020-05-25] MEDS: LOSARTAN 50 MG TAB PO SCH (20:39)
[2020-05-25] MEDS: INSULIN DETEMIR (LEVEMIR) 100 UNIT/ML SYR SQ SCH (20:40)
[2020-05-26 07:14] LABS: Glucose,Whole Blood 156 mg/dL (75-99)
[2020-05-26] MEDS: INSULIN ASPART (NovoLOG) 100 UNIT/ML VIAL SQ SCH ×7 (07:31→21:15)
[2020-05-26] MEDS ORDERED: SODIUM CHLORIDE 0.9% 250 ML IV ONE (08:12)
[2020-05-26] MEDS ORDERED: SODIUM CHLORIDE 0.9% 1,000 ML IV ONE (08:12)
[2020-05-26] MEDS ORDERED: hydrALAZINE HCL 20 MG/ML 1 ML VIAL ONE (08:15)
[2020-05-26] MEDS ORDERED: fentaNYL (PF) 50 MCG/ML 2 ML AMP ONE (08:15)
[2020-05-26] MEDS ORDERED: PROPOFOL 10 MG/ML 20 ML VIAL IV ONE (08:15)
[2020-05-26] MEDS ORDERED: MIDAZOLAM 2 MG/2 ML VIAL ONE (08:15)
[2020-05-26 08:21] LABS: Albumin 3.8 g/dL (3.5-5.0); Calcium 10.3 mg/dL (8.4-10.2); Magnesium 1.9 mg/dL (1.6-2.3); Potassium 4.3 mmol/L (3.5-5.1); Total Bilirubin 0.5 mg/dL (0.2-1.3); Total Protein 6.9 g/dL (6.3-8.2)
[2020-05-26] MEDS ORDERED: LIDOCAINE 1% INJ 10MG/ML (20 ML MDV) ONE ×3 (08:40→10:38)
[2020-05-26] MEDS ORDERED: LIDOCAINE 1%-EPI 1:100,000 20 ML VIAL SQ ONE (08:41)
[2020-05-26] MEDS ORDERED: NITROGLYCERIN OINT 1 INCH/GM PACKET TOPICAL ONE (09:04)
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
[2020-05-26] MEDS ORDERED: IOPAMIDOL-250 50ML BTL IV ONE (09:58)
[2020-05-26] MEDS: ceFAZolin 1,000 MG in SODIUM CHLORIDE 0.9% IRRIGATIO 1,000 ML IRRIGATION STA ×2 (10:04→12:01)
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
[2020-05-26] MEDS ORDERED: LIDOCAINE 1% INJ 10MG/ML (20 ML MDV) SQ ONE ×3 (10:29→10:39)
[2020-05-26] MEDS ORDERED: ACETAMINOPHEN TAB 325 MG TAB PO PRN ×2 (12:32)
[2020-05-26] MEDS ORDERED: HYDROcodone/APAP 5-325MG 1 EACH TAB PO PRN (12:32)
--- NOTE | 2020-05-26 12:55 | P.PCN ---
Preoperative Diagnosis: Increase procedure services Patient underwent ICD implantation. He has a right bundle branch block with QRS width 180 ms The third lead, His bundle lead was implanted for physiologic septal pacing Excellent thresholds, His bundle signals and excellent position was obtained repeatedly. Nonselective as well as selective capture of the His bundle was obtained repeatedly and very easily However when the sheath was withdrawn there would be a micro-dislodgment of the lead every single time resulting in a rise in threshold and loss of selective His bundle capture After multiple attempts and use of 2 different sheaths for physiologic septal pacing the lead was extracted and removed and a dual-chamber ICD was implanted AAIR-DDDR pacing was performed, 50 to 130 bpm
--- NOTE | 2020-05-26 13:52 | P.EPPROC ---
- EP Procedure Note Electrophysiology Procedure Note: Diagnosis Syncope, recurrent Inducible fast ventricular tachycardia at EP study VT cycle length 191 ms, right bundle branch block, negative QRS in lead 1 aVL and V4-V6 Right bundle branch block QRS width 180 ms, left anterior fascicular block Cardiomyopathy, chronic, left radical ejection fraction 40%, apical aneurysm CAD, CABG Congestive heart failure, systolic, stable class II Hypertension Procedure: Dual-chamber ICD implantation for management of risk of sudden cardiac 4/bradycardia Collection Coordinator: Dr. Munoz Result: Dual ICD implantation, Atrial lead: P waves 3.2 mV, pacing impedance 690 ohms, pacing threshold 1 warted 0.5 ms RV ICD lead: R waves 23 mV, pacing impedance 744 ohms, pacing threshold 0.4 V at 0.5 ms Medtronic dual-chamber ICD implant, ICD cobalt DR SAMAYOA, DF 4, model number [id number], serial number [id number] Procedure details: Patient was brought to the EP lab in a fasting state. Written informed consent was obtained prior to the procedure. Options, pros and cons, benefits and risks and complications discussed with patient in detail prior to the procedure (shared decision making). Importance of continuing medical treatment emphasized. Alternatives discussed. Patient would like to proceed with dual-chamber ICD implant. Left upper extremity venogram performed. 15 mL IV dye injected in the left arm. Patent axillary/subclavian vein The left pectoral area was prepped and draped as a protocol. IV antibiotics administered 1% lidocaine was used for local anesthesia. A 4 cm incision was made parallel to the deltopectoral groove, about 1.5 cm medial to it. The incision was carried down to the level of the pectoralis muscle and the subfascial pocket was made. Hemostasis was assured. The axillary vein access was obtained. Appropriately sized into to see sheaths were placed. ICD lead implanted in the right ventricle and screwed in. ICD lead tested for threshold, sensing, impedances and tested with high output pacing for diaphragmatic stimulation Atrial lead placed in the right atrial appendage and tested for threshold, sensing, impedance, and tested with high output pacing. Phrenic nerve stimulation His bundle lead was attempted and placed successfully on multiple occasions in the His bundle area with good His bundle signals, His bundle current of injury, at times selective capture, at other times nonselective capture However there would be a sudden rise and thresholds and loss of nonselective His bundle pacing when the sheath was withdrawn This would occur repeatedly. 2 different sheaths were used but the exact same outcome Therefore despite successful implantation of the His bundle lead, withdrawal she aths were result in unacceptably high His bundle thresholds This lead was removed and a dual-chamber ICD was implanted Lead secured to the underlying transverse muscle after removing sheaths . Pocket irrigated with antibiotic solution Leads connected to the biventricular ICD generator. Wound closed in 3 layers and dressed per protocol Biventricular ICD interrogated and programmed. Appropriate pacing parameters, antitachycardia therapies with antitachycardia pacing cardioversion defibrillations programmed. Patient tolerated the procedure well without any acute complications. See scanned device report in EMR for lead details ICD was programmed to AAI ER-DDDR 50-130 bpm VT zone 176 beats a minute, VF zone 214 beats a minute Appropriate antitachycardia pacing cardioversion and defibrillation DFT was withheld and deferred for 3 months
[2020-05-26 15:40] LABS: Vitamin D, 1, 25-Dihydroxy 50 pg/mL (20 - 79)
[2020-05-26] MEDS: APIXABAN 5 MG TAB PO SCH (16:16)
[2020-05-26] MEDS: LOSARTAN 50 MG TAB PO SCH ×2 (16:17→21:14)
[2020-05-26] MEDS: TAMSULOSIN 0.4 MG CAP.ER.24H PO SCH (16:17)
[2020-05-26] MEDS: ATORVASTATIN 80 MG TAB PO SCH (16:17)
[2020-05-26] MEDS: amLODIPine 5 MG TAB PO SCH ×2 (16:17→21:14)
[2020-05-26] MEDS: hydrALAZINE HCL 50 MG TAB PO SCH ×3 (16:17→21:14)
[2020-05-26] MEDS: carvediloL 12.5 MG TAB PO SCH (16:17)
[2020-05-26] MEDS: METOPROLOL TARTRATE 25 MG TAB PO SCH (16:50)
--- NOTE | 2020-05-26 17:18 | XR ---
EXAMINATION TYPE: XR chest 1V portable DATE OF EXAM: 05/26/2020 COMPARISON: 05/21/2020 HISTORY: Check lead placement TECHNIQUE: FINDINGS: There is left axillary pacemaker with the lead tips over the right ventricle. There are chandni rnal wires. There is some mild atelectasis left lower lobe. Right lung is clear. There is no heart fa ilure. Heart size is normal. IMPRESSION: New pacemaker since last exam. There is minimal atelectasis left lower lobe that is new c ompared to last exam. Normal heart.
[2020-05-26] MEDS: SODIUM CHLORIDE 0.9% 1,000 ML IV SCH (18:39)
[2020-05-26 18:54] LABS: Glucose,Whole Blood 234 mg/dL (75-99)
[2020-05-26 20:25] LABS: Glucose,Whole Blood 236 mg/dL (75-99)
[2020-05-26] MEDS: INSULIN DETEMIR (LEVEMIR) 100 UNIT/ML SYR SQ SCH (21:14)
[2020-05-27 06:40] LABS: Glucose,Whole Blood 153 mg/dL (75-99)
[2020-05-27] MEDS: carvediloL 12.5 MG TAB PO SCH ×2 (07:09→17:04)
[2020-05-27] MEDS: INSULIN ASPART (NovoLOG) 100 UNIT/ML VIAL SQ SCH ×6 (07:09→17:05)
[2020-05-27 07:19] LABS: Glucose,Whole Blood 128 mg/dL (75-99)
[2020-05-27 08:11] LABS: Albumin 3.6 g/dL (3.5-5.0); Calcium 10.1 mg/dL (8.4-10.2); Potassium 4.2 mmol/L (3.5-5.1); Total Bilirubin 0.7 mg/dL (0.2-1.3); Total Protein 6.6 g/dL (6.3-8.2)
[2020-05-27] MEDS: amLODIPine 5 MG TAB PO SCH (09:12)
[2020-05-27] MEDS: hydrALAZINE HCL 50 MG TAB PO SCH ×2 (09:12→17:04)
[2020-05-27] MEDS: TAMSULOSIN 0.4 MG CAP.ER.24H PO SCH (09:12)
[2020-05-27] MEDS: ATORVASTATIN 80 MG TAB PO SCH (09:12)
[2020-05-27] MEDS: LOSARTAN 50 MG TAB PO SCH (09:12)
--- NOTE | 2020-05-27 10:01 | P.PN ---
Subjective Patient is seen in follow-up for acute kidney injury on chronic kidney disease. Renal function stable. Good urine output. No chest pain or shortness of breath. Calcium level down to 10.1. No chest pain or shortness of breath. Good urine output. Vital signs are stable. Blood pressure high. General: The patient appeared well nourished and normally developed. HEENT: Head exam is unremarkable. Neck is without jugular venous distension. LUNGS: Breath sounds decreased. HEART: Rate and Rhythm are regular. ABDOMEN: Soft, nontender. EXTREMITITES: No edema. Objective - Vital Signs Vital signs: Vital Signs Temp 97.6 F 05/27/20 03:47 Pulse 86 05/27/20 03:47 Resp 18 05/27/20 03:47 BP 178/83 05/27/20 03:47 Pulse Ox 98 05/27/20 03:47 Intake & Output 05/26/20 05/27/20 05/27/20 18:59 06:59 18:59 Intake Total 500 240 Output Total 300 140 Balance 200 -140 240 Weight 73.8 kg Intake: IV 500 Oral 0 240 Output: Urine 300 140 Other: Voiding Method Toilet Toilet # Voids 1 1 - Labs CBC & Chem 7: 05/25/20 07:56 05/27/20 07:10 Labs: Abnormal Lab Results - Last 24 Hours (Table) 05/26/20 05/26/20 05/27/20 Range/Units 18:53 20:24 06:26 Chloride (98-107) mmol/L BUN (9-20) mg/dL Creatinine (0.66-1.25) mg/dL Glucose (74-99) mg/dL POC Glucose (mg/dL) 234 H 236 H 153 H (75-99) mg/dL ALT (4-49) U/L 05/27/20 05/27/20 Range/Units 07:07 07:10 Chloride 113 H (98-107) mmol/L BUN 25 H (9-20) mg/dL Creatinine 1.43 H (0.66-1.25) mg/dL Glucose 142 H (74-99) mg/dL POC Glucose (mg/dL) 128 H (75-99) mg/dL ALT 61 H (4-49) U/L Assessment and Plan Plan: Assessment: 1. Acute kidney injury mostly prerenal, improved with IV hydration. Creatinine stable at 1.43 today. 2. Chronic kidney disease stage IIIA secondary to diabetic kidney disease and solitary right kidney. 3. LV thrombus maintained on anticoagulation. Cardiology following. Pacemaker placed May 26. 4. Chronic systolic CHF with ejection fraction of 40-45% with mild to moderate mitral regurgitation. 5. History of left renal cancer status post nephrectomy. 6. Hypercalcemia. Unclear cause. No evidence of hypovolemia. Better. PTH 115.4. Vitamin D 20.5. Urine immunofixation negative. 7. Hypertension with chronic kidney disease. Blood pressure high. 8. Diabetes mellitus. Plan: Remains off IV fluids. Follow-up pending workup for hypercalcemia. Check nuclear parathyroid scan as well. Continue to monitor renal function and urine output.
[2020-05-27 12:33] LABS: Glucose,Whole Blood 171 mg/dL (75-99)
--- NOTE | 2020-05-27 12:54 | P.DS ---
Providers Date of admission: 05/23/20 16:35 Attending physician: Fabio Snider Consults: 05/21/20 19:55 Consult Physician Routine Consulting Provider: Jovany Kim Consult Reason/Comments: Syncope, acute kidney injury, troponin elevation Do you want consulting provider notified?: Yes Consult Physician Routine Consulting Provider: Caitlin Pedraza Consult Reason/Comments: Syncope, acute kidney injury Do you want consulting provider notified?: Yes Primary care physician: Phil Maxwell MD Hospital Course: 74-year-old patient of Dr. Phil Maxwell. Chronic stable medical conditions include diabetes, GERD, hyperlipidemia, hypertension, coronary artery disease with a coronary bypass in 2008. Today patient was driving her granddaughter. This around 5:00. He did not eat in the whole day. His daughter at [place] to come over to eat. Patient does states that he became somewhat foggy. He doesn't remember what happened. Per the EMS reported to the opposite jacobo but patient is on course of the vehicle. There is no reported seizure activity. No tongue biting or incontinence. History of nephrectomy for renal carcinoma. So the patient and the ER today is back to himself. It is unusual for him not to eat. He was just very busy today. Patient's vital sign noted by the EMS was blood pressure 101/63, pulse of 53 respiration 18 pulse ox 98% Admitted with episode of unconsciousness/syncope in a patient not eat in the whole day. Found to be an acute kidney injury. Started on IV fluids. Today-laying in bed. Feeling a bit better. Oral intake fair. 05/23/2020 Patient baseline creatinine is around 1.3 presently around 1.6 patient's creatinine stabilized at that level patient is receiving IV fluids at 50 mL per hour. 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 05/24/2020 Patient the still on 50 mL of normal saline, IV fluids as per nephrology creatinine continued to improve. Patient will undergo EP study and possible pacemaker placement on Tuesday. Patient remains on IV heparin patient blood pressures still elevated patient today is on 100 mg 3 times a day of hydralazine along with amlodipine. 05/25/2020 IV fluids will discuss reviewed. Patient blood pressure is bit better after losartan. Mildly elevated calcium which has come down now. PTH is high. 05/26/2020 Patient will undergo EP study and pacemaker placement today creatinine bit elevated but close to his baseline fairly stable 05/27/2020 Patient had a pacemaker placement. Patient will be discharged later today. Multiple medication changes were made please refer to medication reconciliation. Patient calcium was high with the elevated PTH patient is undergoing nuclear scan for parathyroid Synthyroid. Results of which are pending this can be followed as an outpatient discuss with nephrology the recommending a low-dose of Lasix that is 20 mg twice a day patient had decreased EF of around 40-45% with moderate mitral regurgitation. PHYSICAL EXAMINATION: GENERAL: The patient is alert and oriented x3, not in any acute distress. Well developed, well nourished. HEENT: Pupils are round and equally reacting to light. EOMI. No scleral icterus. No conjunctival pallor. Normocephalic, atraumatic. No pharyngeal erythema. No thyromegaly. CARDIOVASCULAR: S1 and S2 present. No murmurs, rubs, or gallops. PULMONARY: Chest is clear to auscultation, no wheezing or crackles. ABDOMEN: Soft, nontender, nondistended, normoactive bowel sounds. No palpable organomegaly. MUSCULOSKELETAL: No joint swelling or deformity. EXTREMITIES: No cyanosis, clubbing, or pedal edema. NEUROLOGICAL: Gross neurological examination did not reveal any focal deficits. SKIN: No rashes. Assessment and Plan Plan: -Syncope: Probably secondary to cardiac causes that is triphasic block patient had a pacemaker placement. Patient was also treated for dehydration patient presents serum creatinine improved and at his baseline of around 1.3-1.4 -Mild hypercalcemia etiology is not clear patient's PTH is elevated it appears to be primary hyperparathyroidism patient is undergoing nuclear scan for this results of which at this time are pending -Coronary artery disease with a prior history of coronary bypass -Left ventricle thrombus for which patient is being discharged on Eliquis -Congestive heart failure chronic systolic dysfunction without any acute exacerbation, presently euvolemic and patient had EF of around 40-45% with moderate mitral regurgitation -Diabetes mellitus type 2 -Essential hypertension, accelerated, was started on Norvasc, hydralazine. Patient is on losartan -Hyperlipidemia -Obesity BMI 30.0 -acute kidney injury from decreased oral intake causing hypotension and hypoperfusion. Improved - chronic kidney disease in the setting of nephrectomy, patient has proteinuria in the urine. Baseline creatinine of 1.3 -Troponin elevation secondary to acute renal failure and chronic kidney disease. No clinical evidence of acute coronary syndrome Patient Condition at Discharge: Stable Plan - Discharge Summary Discharge Rx Participant: No New Discharge Prescriptions: New Apixaban [Eliquis] 5 mg PO BID #60 tab carvediloL [Carvedilol] 12.5 mg PO BID #180 tablet hydrALAZINE HCL [Apresoline] 100 mg PO TID #90 tab Losartan [Cozaar] 50 mg PO BID #60 tab amLODIPine [Norvasc] 5 mg PO BID #60 tab Continue Atorvastatin [Lipitor] 80 mg PO DAILY Tamsulosin [Flomax] 0.4 mg PO DAILY Insulin Glargine,Hum.rec.anlog [Lantus Solostar] 20 unit SQ HS Clopidogrel Bisulfate [Plavix] 75 mg PO DAILY Changed Insulin Aspart [NovoLOG Flexpen] 10 units SQ AC-TID #0 Discontinued metFORMIN HCL [Glucophage] 500 mg PO BID cloNIDine HCL [Catapres] 0.1 mg PO TID Metoprolol Tartrate 25 mg PO TID hydrALAZINE HCL 75 mg PO TID Discharge Medication List Atorvastatin [Lipitor] 80 mg PO DAILY 07/29/16 [History] Insulin Glargine,Hum.rec.anlog [Lantus Solostar] 20 unit SQ HS 11/03/18 [History] Tamsulosin [Flomax] 0.4 mg PO DAILY 11/03/18 [History] Clopidogrel Bisulfate [Plavix] 75 mg PO DAILY 05/21/20 [History] Apixaban [Eliquis] 5 mg PO BID #60 tab 05/23/20 [Rx] carvediloL [Carvedilol] 12.5 mg PO BID #180 tablet 05/26/20 [Rx] Insulin Aspart [NovoLOG Flexpen] 10 units SQ AC-TID #0 05/27/20 [Rx] Losartan [Cozaar] 50 mg PO BID #60 tab 05/27/20 [Rx] amLODIPine [Norvasc] 5 mg PO BID #60 tab 05/27/20 [Rx] hydrALAZINE HCL [Apresoline] 100 mg PO TID #90 tab 05/27/20 [Rx] Follow up Appointment(s)/Referral(s): Phil Maxwell MD [Primary Care Provider] - 3 Days Colin Leon DO [STAFF PHYSICIAN] - 1 Week Froy Bianchi DO [STAFF PHYSICIAN] - 1 Week Activity/Diet/Wound Care/Special Instructions: Eliquis is covered by insurance, copay is $47 Cardiac, diabetic
--- NOTE | 2020-05-27 14:17 | P.PN ---
Subjective Progress Note Date: 05/27/20 CHIEF COMPLAINT: Syncope HISTORY OF PRESENT ILLNESS: 05/22/2020 This is a 74-year-old male with a past medical history significant for coronary artery disease with previous CABG 3 in 2008, hypertension, hyperlipidemia, kidney cancer with left nephrectomy, and syncope. Patient follows in the office with Dr. Kim. We have been asked to see the patient in consultation for syncope. Patient states he was driving his car yesterday when he began to feel his vision becomes blurry. He states this lasted for about 10 minutes and he was attempting to pull his car over to the side of the road. The patient states the next thing he remembers was he woke up and EMS was by his vehicle. Apparently the patients car stopped in the wrong jacobo. Patient denies chest pain or pressure. Denies shortness of breath. Denies dizziness or lightheadedness today. Patient was hospitalized in October 2018 for similar syncopal episode. Patient was discharged home with an event monitor at that time which showed an episode of SVT. 05/23/2020 Patient examined this morning at the bedside. He denies chest pain or pressure. Denies shortness of breath. He remains on IV heparin secondary to an apical thrombus. Blood pressure is elevated with a systolic in the 190s. 05/27/2020 Patient underwent EP study yesterday with Dr. Munoz. He also underwent dual- chamber ICD implantation. Patient examined this morning at the bedside. Patient denies chest pain or pressure. Denies shortness of breath. Patient had a hematoma of the right groin yesterday and his Eliquis was held. His groin is soft this morning upon examination with no hematoma noted. PHYSICAL EXAM: VITAL SIGNS: Reviewed. GENERAL: Well-developed in no acute distress. HEENT: Head is normocephalic. Pupils are equal, round. Sclerae anicteric. Mucous membranes of the mouth are moist. Neck supple. No JVD or thyromegaly LUNGS: Respirations even and unlabored. Lungs essentially clear to auscultation bilaterally. HEART: Regular rate and rhythm. S1 and S2 heard. EXTREMITIES: Normal range of motion. No clubbing or cyanosis. Peripheral pulses intact. No lower extremity edema ASSESSMENT: Syncope Status post EP study and dual-chamber ICD implantation Apical LV thrombus Ischemic cardiomyopathy, ejection fraction 40% Abnormal troponins, not suggestive of acute coronary syndrome Coronary artery disease with previous CABG 2008 History of kidney cancer, status post left nephrectomy Acute kidney injury Hypertension Hyperlipidemia PLAN: Continue current cardiac medications May resume Fannie villagomez Patient is stable for discharge home from a cardiac standpoint. Will defer to internal medicine. He is to follow up outpatient. Nurse practitioner note has been reviewed by physician. Signing provider agrees with the documented findings, assessment, and plan of care. Objective - Vital Signs Vital signs: Vital Signs Temp 98.0 F 05/27/20 08:00 Pulse 72 05/27/20 08:00 Resp 16 05/27/20 08:00 BP 165/82 05/27/20 08:00 Pulse Ox 95 05/27/20 08:00 Intake & Output 05/26/20 05/27/20 05/27/20 18:59 06:59 18:59 Intake Total 500 480 Output Total 300 140 Balance 200 -140 480 Weight 73.8 kg Intake: IV 500 Oral 0 480 Output: Urine 300 140 Other: Voiding Method Toilet Toilet Urinal # Voids 1 1 - Labs CBC & Chem 7: 05/25/20 07:56 05/27/20 07:10 Labs: Abnormal Lab Results - Last 24 Hours (Table) 05/26/20 05/26/20 05/27/20 Range/Units 18:53 20:24 06:26 Chloride (98-107) mmol/L BUN (9-20) mg/dL Creatinine (0.66-1.25) mg/dL Glucose (74-99) mg/dL POC Glucose (mg/dL) 234 H 236 H 153 H (75-99) mg/dL ALT (4-49) U/L 05/27/20 05/27/20 05/27/20 Range/Units 07:07 07:10 12:32 Chloride 113 H (98-107) mmol/L BUN 25 H (9-20) mg/dL Creatinine 1.43 H (0.66-1.25) mg/dL Glucose 142 H (74-99) mg/dL POC Glucose (mg/dL) 128 H 171 H (75-99) mg/dL ALT 61 H (4-49) U/L
--- NOTE | 2020-05-27 15:39 | NM ---
EXAMINATION TYPE: NM parathyroid w/spect DATE OF EXAM: 05/27/2020 COMPARISON: NONE HISTORY: Hypercalcemia TECHNIQUE: Following administration of 24.2 mCi Tc99m Sestamibi. Anterior projection images of the neck and ches t were obtained 10 minutes and 3 hours post injection. SPECT images of the neck and chest were obtai ramiro and reconstructed in three axes. FINDINGS: Thyroid tracer washout: Delayed images demonstrate near-complete tracer washout from the thyroid. The re may be some mild residual at the inferior right thyroid lobe region. Parathyroid uptake: Some focal uptake is in the region of the inferior right lobe thyroid may be a pa rathyroid adenoma. Normal uptake: There is physiological tracer uptake in the myocardium, liver, salivary glands, and th yroid gland. IMPRESSION: Mild persistent uptake in the region of the inferior right lobe thyroid suspicious for parathyroid ad enoma
[2020-05-27 15:44] VITALS: PULSE 84; RESP 18; TEMP 98.5
[2020-05-27 16:57] LABS: Glucose,Whole Blood 185 mg/dL (75-99)
[2020-05-27 17:10] VITALS: BP 125/71
[2020-05-28 09:42] LABS: Angiotensin-1 Converting Enz. 25 U/L (8-52)
[2020-05-28 11:14] LABS: Albumin 4.19 g/dL (3.80-4.90); Gamma Globulin 1.29 g/dL (0.70-1.50)
== END 2020-05-27 18:11 | disposition home health service (06) | DRG 227 ==
LOC: EC 17:38 → 3SCARD 19:54 → OBSVTOIN 05-23 16:35
PROVIDERS: ADMIT Hospitalist; ATTEND Hospitalist
PROC: 02H63KZ Insertion of Defibrillator Lead into Right Atrium, Percutaneous Approach (ICD-10-PCS; principal; 2020-05-26 10:25)
PROC: 0JH609Z Insertion of Cardiac Resynchronization Defibrillator Pulse Generator into Chest Subcutaneous Tissue and Fascia, Open Approach (ICD-10-PCS; principal; 2020-05-26 10:25)
PROC: 02HK3KZ Insertion of Defibrillator Lead into Right Ventricle, Percutaneous Approach (ICD-10-PCS; principal; 2020-05-26 10:25)
PROC: 4A023FZ Measurement of Cardiac Rhythm, Percutaneous Approach (ICD-10-PCS; 2020-05-26 10:25)
PROC: 4A0234Z Measurement of Cardiac Electrical Activity, Percutaneous Approach (ICD-10-PCS; 2020-05-26 10:25)
DX: I45.2 Bifascicular block (principal); N17.9 Acute kidney failure, unspecified; I13.0 Hypertensive heart and chronic kidney disease with heart failure and stage 1 through stage 4 chronic kidney disease, or unspecified chronic kidney disease; I50.22 Chronic systolic (congestive) heart failure; I44.0 Atrioventricular block, first degree; I25.10 Atherosclerotic heart disease of native coronary artery without angina pectoris; I25.5 Ischemic cardiomyopathy; K21.9 Gastro-esophageal reflux disease without esophagitis; E78.5 Hyperlipidemia, unspecified; E66.9 Obesity, unspecified; E11.22 Type 2 diabetes mellitus with diabetic chronic kidney disease; I34.0 Nonrheumatic mitral (valve) insufficiency; N18.31 Chronic kidney disease, stage 3a; I47.1 Supraventricular tachycardia; E86.0 Dehydration; E83.52 Hypercalcemia; I51.3 Intracardiac thrombosis, not elsewhere classified; I95.9 Hypotension, unspecified; I45.3 Trifascicular block; N40.0 Benign prostatic hyperplasia without lower urinary tract symptoms; Z85.528 Personal history of other malignant neoplasm of kidney; Z79.899 Other long term (current) drug therapy; Z79.4 Long term (current) use of insulin; Z79.02 Long term (current) use of antithrombotics/antiplatelets; Z79.01 Long term (current) use of anticoagulants; Z95.1 Presence of aortocoronary bypass graft; Z95.0 Presence of cardiac pacemaker; Z90.5 Acquired absence of kidney; Z87.19 Personal history of other diseases of the digestive system; Z68.30 Body mass index [BMI] 30.0-30.9, adult; Z90.49 Acquired absence of other specified parts of digestive tract; Z98.890 Other specified postprocedural states
CPT/HCPCS: 33249; 36415; 70450; 71045; 71046; 78071; 80048; 80053; 81001; 82164; 82306; 82652; 83036; 83735; 83970; 84165; 84484; 85025; 85610; 85730; 86334; 86335; 93005; 93306; 93620; 96360; 96361; 99285

== ENCOUNTER → 2023-09-08 | Outpatient (CLI) | payer MEDICARE ==
--- NOTE | 2023-09-09 09:11 | US ---
EXAMINATION TYPE: US kidneys/renal and bladder DATE OF EXAM: 09/08/2023 COMPARISON: NONE CLINICAL INDICATION: Male, 77 years old with history of N18.31 CHRONIC KIDNEY DISEASE, STAGE 3A; CKD, Left nephrectomy due to kidney cancer EXAM MEASUREMENTS: Right Kidney: 11.4x6.9x6.3 cm Right Kidney: 1.4x1.3x1.4cm complex cystic area Left Kidney: surgically absent Bladder: irregular posterior wall Bilateral Jets seen: No Normal Post Void Residual: no: 333ml There is no evidence for hydronephrosis at this point in time. No nephrolithiasis is seen. The urin tyler bladder is anechoic. exam limited by bowel gas and body habitus Prostate enlarged: 124.3ml PPSA 14.9 IMPRESSION: 1. 1.4 cm hypoechoic mass in the lower pole of the right kidney with a nodular-appearing margin. CT i s recommended for further evaluation. 2. Prosthetic hypertrophy and abnormal post void residual indicating probable partial bladder outlet obstruction.
== END | disposition home or self-care (01) ==
LOC: RADUSWWP 15:19
PROVIDERS: ATTEND Internal Medicine Nephrology
DX: N40.0 Benign prostatic hyperplasia without lower urinary tract symptoms (principal); N28.89 Other specified disorders of kidney and ureter; N18.31 Chronic kidney disease, stage 3a; R33.9 Retention of urine, unspecified; Z85.528 Personal history of other malignant neoplasm of kidney; Z90.5 Acquired absence of kidney
CPT/HCPCS: 76770

== ENCOUNTER → 2023-10-04 | Outpatient (CLI) | payer MEDICARE ==
--- NOTE | 2023-10-10 09:20 | CT ---
EXAMINATION TYPE: CT abdomen wo con DATE OF EXAM: 10/04/2023 COMPARISON: Ultrasound 09/08/2023 INDICATION: renal cyst DLP: 440 mGycm, Automated exposure control for dose reduction was used. CONTRAST: 0 mL of Isovue 300. Study performed with Oral Contrast TECHNIQUE: Axial images were obtained from above the diaphragm to the pubic rami in the axial plane a t 5 mm thick sections. Reconstructed images are reviewed on the computer in the coronal plane. FINDINGS: Limited CT sections are obtained the lung bases. There is a 0.5 cm nodule left lung base. Series [address] ABDOMEN: Liver: Normal Spleen: Normal Pancreas: Normal Adrenal glands: The adrenal glands are normal. Gallbladder: Not identified Kidneys: Left kidney is not identified. No masses are evident. No hydronephrosis is present. No cys ts are present. Some faint hypodensity which is ill-defined descending anterior mid to inferior pole right kidney this potentially could correlate with the ultrasound. Ultrasound findings are more evide nt. Monitoring with ultrasound is recommended. No renal stones are evident. Some right perinephric st randing may be present. Aorta: Vascular calcification is within the aorta. Inferior vena cava: Normal. Loops of bowel within the abdomen and upper pelvis are normal. There are loops of bowel which are incompletely distended or lack oral contrast limiting their evaluation.. Degenerative disc changes are within the lumbar spine. IMPRESSION: 1. Poor visualization of the inferior pole right renal abnormality by CT. Monitoring with ultrasound is recommended. Follow-up renal ultrasound recommended in 6 months. If more immediate evaluation wou ld be of benefit, MRI would be recommended.
== END | disposition home or self-care (01) ==
LOC: RADCTMAIN 15:30
PROVIDERS: ATTEND Internal Medicine
DX: N28.1 Cyst of kidney, acquired (principal)
CPT/HCPCS: 74150

== ENCOUNTER 2024-03-11 15:57 | Emergency (ER) | payer MEDICARE ==
--- NOTE | 2024-03-11 16:28 | ED ---
Male Urogenital HPI - General Chief complaint: Urogenital Stated complaint: difficulty urinating Time Seen by Provider: 03/11/24 16:10 Source: patient, RN notes reviewed Mode of arrival: ambulatory Limitations: no limitations - History of Present Illness Initial comments: This is a 78-year-old male with a history of kidney cancer and subsequent left radical nephrectomy presenting to the emergency department chief complaint of urinary retention for the last 2 days. He denies flank/back pain. Endorses mild suprapubic tenderness. He denies fevers, chills, nausea, vomiting. Denies symptoms of hematuria, dysuria or increase in urinary frequency prior to episode of urinary retention. Patient follows with nephrology and states he is stage III chronic kidney disease. denies history of kidney stones. - Related Data Home Medications Medication Instructions Recorded Confirmed Atorvastatin [Lipitor] 80 mg PO DAILY 07/29/16 05/21/20 Insulin Glargine,Hum.rec.anlog 20 unit SQ HS 11/03/18 05/21/20 [Lantus Solostar Pen] Tamsulosin [Flomax] 0.4 mg PO DAILY 11/03/18 05/21/20 Clopidogrel Bisulfate [Plavix] 75 mg PO DAILY 05/21/20 05/21/20 Previous Rx's Medication Instructions Recorded Apixaban [Eliquis] 5 mg PO BID #60 tab 05/23/20 carvediloL 12.5 mg PO BID #180 tablet 05/26/20 Furosemide [Lasix] 20 mg PO BID #60 tab 05/27/20 Insulin Aspart [NovoLOG Flexpen] 10 units SQ AC-TID #0 05/27/20 Losartan [Cozaar] 50 mg PO BID #60 tab 05/27/20 amLODIPine [Norvasc] 5 mg PO BID #60 tab 05/27/20 hydrALAZINE HCL [Apresoline] 100 mg PO TID #90 tab 05/27/20 Allergies Allergy/AdvReac Type Severity Reaction Status Date / Time No Known Allergies Allergy Verified 03/11/24 16:00 Review of Systems ROS Statement: Those systems with pertinent positive or pertinent negative responses have been documented in the HPI. ROS Other: All systems not noted in ROS Statement are negative. Past Medical History Past Medical History: Cancer, Diabetes Mellitus, GERD/Reflux, Hyperlipidemia, Hypertension Additional Past Medical History / Comment(s): past hx colon polyps History of Any Multi-Drug Resistant Organisms: None Reported Past Surgical History: Appendectomy, Cholecystectomy, Coronary Bypass/CABG, Heart Catheterization Additional Past Surgical History / Comment(s): triple bypass 2009 Past Anesthesia/Blood Transfusion Reactions: No Reported Reaction Past Psychological History: No Psychological Hx Reported Past Alcohol Use History: None Reported Past Drug Use History: None Reported - Past Family History Mother Family Medical History: No Reported History General Exam Limitations: no limitations General appearance: alert, in no apparent distress Eye exam: Present: normal appearance, PERRL, EOMI. Absent: scleral icterus, conjunctival injection, periorbital swelling ENT exam: Present: normal exam, mucous membranes moist Neck exam: Present: normal inspection. Absent: tenderness, meningismus, lymphadenopathy Respiratory exam: Present: normal lung sounds bilaterally. Absent: respiratory distress, wheezes, rales, rhonchi, stridor Cardiovascular Exam: Present: regular rate, normal rhythm, normal heart sounds. Absent: systolic murmur, diastolic murmur, rubs, gallop, clicks GI/Abdominal exam: Present: soft, tenderness (mild suprapubic, severely distended bladder on palpation), normal bowel sounds. Absent: distended, guarding, rebound, rigid Extremities exam: Present: normal inspection, full ROM, normal capillary refill. Absent: tenderness, pedal edema, joint swelling, calf tenderness Back exam: Present: normal inspection Skin exam: Present: warm, dry, intact, normal color. Absent: rash Course Vital Signs 03/11/24 03/11/24 03/11/24 15:58 16:16 17:31 Temperature 98.0 F Pulse Rate 58 L 66 54 L Respiratory 16 16 20 Rate Blood Pressure 145/86 156/96 167/84 O2 Sat by Pulse 98 99 96 Oximetry Medical Decision Making - Medical Decision Making Was pt. sent in by a medical professional or institution (, PA, DIRECTOR REVENUE, urgent ca re, hospital, or shelter...) When possible be specific @ -No Did you speak to anyone other than the patient for history (EMS, parent, family, police, friend...)? What history was obtained from this source @ -Spoke to the patient's daughter at bedside and states the patient has a history of a nephrectomy and follows with urology outpatient. Did you review nursing and triage notes (agree or disagree)? Why? @ -I reviewed and agree with nursing and triage notes Were old charts reviewed (outside hosp., previous admission, EMS record, old EKG, old radiological studies, urgent care reports/EKG's, shelter records)? Report findings @ -No old charts were reviewed Differential Diagnosis (chest pain, altered mental status, abdominal pain women, abdominal pain men, vaginal bleeding, weakness, fever, dyspnea, syncope, headache, dizziness, GI bleed, back pain, seizure, CVA, palpatations, mental health, musculoskeletal)? @ -Differential Abdominal Pain Men: Appendicitis, cholecystitis, diverticulosis, ischemic bowel, pancreatitis, hepatitis, UTI, gastroenteritis, AAA, incarcerated hernia, bowel obstruction, constipation, inflammatory bowel, hepatitis, peptic ulcer disease, splenic inf arction, perforated viscus, testicular torsion, this is not meant to be an all- inclusive list EKG interpreted by me (3pts min.). @ -None X-rays interpreted by me (1pt min.). @ -None done CT interpreted by me (1pt min.). @ -None done U/S interpreted by me (1pt. min.). @ -None done What testing was considered but not performed or refused? (CT, X-rays, U/S, labs)? Why? @ -None What meds were considered but not given or refused? Why? @ -None Did you discuss the management of the patient with other professionals (professionals i.e. , PA, DIRECTOR REVENUE, lab, RT, psych nurse, social sciences department chair, electronics utility worker, teacher, safety and security officer, community case manager)? Give summary @ -No Was smoking cessation discussed for >3mins.? @ -No Was critical care preformed (if so, how long)? @ -No Were there social determinants of health that impacted care today? How? (Homelessness, low income, unemployed, alcoholism, drug addiction, transp ortation, low edu. Level, literacy, decrease access to med. care, penitentiary, rehab)? @ -No Was there de-escalation of care discussed even if they declined (Discuss DNR or withdrawal of care, Hospice)? DNR status @ -No What co-morbidities impacted this encounter? (DM, HTN, Smoking, COPD, CAD, Cancer, CVA, ARF, Chemo, Hep., AIDS, mental health diagnosis, sleep apnea, morbid obesity)? @ -None Was patient admitted / discharged? Hospital course, mention meds given and route, prescriptions, significant lab abnormalities, going to OR and other pertinent info. @ -Discharge. 78-year-old male with urinary retention. On my evaluation the patient is resting up in no signs acute distress. His vitals are stable. He is noted to have a extremely distended bladder with tenderness to palpation suprapubically. There is no abdominal tenderness. Patient's bladder scan reveals over 1000 cc. Urinary catheterization revealed 1600 cc output. And patient experienced immediate relief after urinary output. Patient is noted to have a mild RUCHI with a BUN of 32 and creatinine of 2.13, hyperglycemia with a glucose of 181. UA no signs of infection. Discussed with patient at bedside option to be admitted to observation with urology consult for RUCHI order follow- up outpatient. Patient is requesting to follow-up outpatient states that he is feeling well and will contact his urologist first thing in the morning to schedule appointment. Patient is discharged with Villafuerte in place in stable condition. All questions have been answered at bedside and strict return parameters discussed with the patient he is verbalized understanding. Case discussed with Dr. Davis Undiagnosed new problem with uncertain prognosis? @ -No Drug Therapy requiring intensive monitoring for toxicity (Heparin, Nitro, Insulin, Cardizem)? @ -No Were any procedures done? @ -No Diagnosis/symptom? @ -Urinary retention, RUCHI Acute, or Chronic, or Acute on Chronic? @ -acute Uncomplicated (without systemic symptoms) or Complicated (systemic symptoms)? @ -uncomplicated Side effects of treatment? @ -No Exacerbation, Progression, or Severe Exacerbation? @ -No Poses a threat to life or bodily function? How? (Chest pain, USA, MT, pneumonia, PE, COPD, DKA, ARF, appy, cholecystitis, CVA, Diverticulitis, Homicidal, Suicidal, threat to staff... and all critical care pts) @ -No - Lab Data Result diagrams: 03/11/24 17:21 03/11/24 17:21 Lab Results 03/11/24 03/11/24 03/11/24 Range/Units 17:05 17:21 17:21 WBC 8.7 (3.8-10.6) k/uL RBC 4.20 L (4.30-5.90) m/uL Hgb 13.5 (13.0-17.5) gm/dL Hct 41.4 (39.0-53.0) % MCV 98.5 (80.0-100.0) fL MCH 32.2 (25.0-35.0) pg MCHC 32.7 (31.0-37.0) g/dL RDW 13.0 (11.5-15.5) % Plt Count 194 (150-450) k/uL MPV 7.4 Neutrophils % 80 % Lymphocytes % 12 % Monocytes % 5 % Eosinophils % 1 % Basophils % 0 % Neutrophils # 7.0 (1.3-7.7) k/uL Lymphocytes # 1.1 (1.0-4.8) k/uL Monocytes # 0.5 (0-1.0) k/uL Eosinophils # 0.1 (0-0.7) k/uL Basophils # 0.0 (0-0.2) k/uL Sodium 137 (137-145) mmol/L Potassium 4.7 (3.5-5.1) mmol/L Chloride 113 H (98-107) mmol/L Carbon Dioxide 18 L (22-30) mmol/L Anion Gap 6 mmol/L BUN 32 H (9-20) mg/dL Creatinine 2.13 H (0.66-1.25) mg/dL Est GFR (CKD-EPI)AfAm 34 (>60 ml/min/1.73 sqM) Est GFR (CKD-EPI)NonAf 29 (>60 ml/min/1.73 sqM) Glucose 181 H (74-99) mg/dL Calcium 10.0 (8.4-10.2) mg/dL Phosphorus 3.3 (2.5-4.5) mg/dL Magnesium 2.0 (1.6-2.3) mg/dL Total Bilirubin 1.3 (0.2-1.3) mg/dL AST 28 (17-59) U/L ALT 26 (4-49) U/L Alkaline Phosphatase 101 (38-126) U/L Total Protein 6.8 (6.3-8.2) g/dL Albumin 3.7 (3.5-5.0) g/dL Urine Color Colorless Urine Appearance Clear (Clear) Urine pH 6.0 (5.0-8.0) Ur Specific [place] 1.011 (1.001-1.035) Urine Protein 3+ H (Negative) Urine Glucose (UA) 1+ H (Negative) Urine Ketones Negative (Negative) Urine Blood Small H (Negative) Urine Nitrite Negative (Negative) Urine Bilirubin Negative (Negative) Urine Urobilinogen <2.0 (<2.0) mg/dL Ur Leukocyte Esterase Negative (Negative) Urine RBC 5 (0-5) /hpf Urine WBC <1 (0-5) /hpf Disposition Clinical Impression: Acute urinary retention, RUCHI (acute kidney injury) Disposition: HOME SELF-CARE Condition: Stable Instructions (If sedation given, give patient instructions): Urinary Retention in Men (ED) Additional Instructions: Please return to the Emergency Department if symptoms worsen or any other concerns. As discussed, recommend you contact your urologist for [place] in the morning to schedule follow-up appointment within the next 1 to 2 days for further evaluation of acute urinary retention. Is patient prescribed a controlled substance at d/c from ED?: No Referrals: Licha Florence MD [Primary Care Provider] - 1-2 days Time of Disposition: 17:59
[2024-03-11 17:20] LABS: Appearance,Urine Clear (Clear); Bilirubin,Urine Negative (Negative); Blood,Urine Small (Negative); Color,Urine Colorless; Glucose,Urine (UA) 1+ (Negative); Ketones,Urine Negative (Negative); Leukocyte Esterase,Urine Negative (Negative); Nitrite,Urine Negative (Negative); Protein,Urine 3+ (Negative); RBC,Urine 5 /hpf (0-5); Specific Gravity,Urine 1.011 (1.001-1.035); Urobilinogen,Urine <2.0 mg/dL (<2.0); WBC,Urine <1 /hpf (0-5)
[2024-03-11 17:28] LABS: Basophils % (A) 0 %; Eosinophils # (A) 0.1 k/uL (0-0.7); Eosinophils % (A) 1 %; HCT 41.4 % (39.0-53.0); HGB 13.5 gm/dL (13.0-17.5); Lymphocytes # (A) 1.1 k/uL (1.0-4.8); Lymphocytes % (A) 12 %; MCH 32.2 pg (25.0-35.0); MCHC 32.7 g/dL (31.0-37.0); MCV 98.5 fL (80.0-100.0); Mean Platelet Volume 7.4; Monocytes # (A) 0.5 k/uL (0-1.0); Monocytes % (A) 5 %; Neutrophils % (A) 80 %; Platelet Count 194 k/uL (150-450); WBC 8.7 k/uL (3.8-10.6)
[2024-03-11 17:42] LABS: ALT 26 U/L (4-49); AST 28 U/L (17-59); African American GFR (CKD) 34 (>60 ml/min/1.73 sqM); Albumin 3.7 g/dL (3.5-5.0); Alkaline Phosphatase 101 U/L (38-126); Anion Gap 6 mmol/L; Blood Urea Nitrogen 32 mg/dL (9-20); Carbon Dioxide 18 mmol/L (22-30); Chloride 113 mmol/L (98-107); Glucose 181 mg/dL (74-99); Non-African American GFR(CKD) 29 (>60 ml/min/1.73 sqM); Phosphorus 3.3 mg/dL (2.5-4.5); Potassium 4.7 mmol/L (3.5-5.1); Sodium 137 mmol/L (137-145); Total Bilirubin 1.3 mg/dL (0.2-1.3); Total Protein 6.8 g/dL (6.3-8.2)
[2024-03-11 19:17] VITALS: BP 197/93; PULSE 57; RESP 18; TEMP 97.7
== END 2024-03-11 19:17 | disposition home or self-care (01) ==
LOC: EC 15:57
DX: R33.9 Retention of urine, unspecified (principal); N17.9 Acute kidney failure, unspecified
CPT/HCPCS: 36415; 80053; 81001; 83735; 84100; 85025; 99283

== ENCOUNTER 2024-03-24 21:58 | Inpatient (IN) | payer MEDICARE ==
[2024-03-24 22:17] LABS: Glucose,Whole Blood >600 mg/dL (70-110)
--- NOTE | 2024-03-24 22:18 | ED ---
Dizziness HPI - General Chief Complaint: Dizziness Stated Complaint: dizzy Time Seen by Provider: 03/24/24 22:16 Source: patient, RN notes reviewed, old records reviewed Mode of arrival: wheelchair Limitations: no limitations - History of Present Illness Initial Comments: This is a 78-year-old male to the ER for evaluation unable to give history but was brought in by family for not getting out of bed for going on over a week. Increasing weakness decreased activities of daily living and increased altered mental status MD Complaint: dizziness - Related Data Home Medications Medication Instructions Recorded Confirmed Atorvastatin [Lipitor] 80 mg PO DAILY 07/29/16 05/21/20 Insulin Glargine,Hum.rec.anlog 20 unit SQ HS 11/03/18 05/21/20 [Lantus Solostar Pen] Tamsulosin [Flomax] 0.4 mg PO DAILY 11/03/18 05/21/20 Clopidogrel Bisulfate [Plavix] 75 mg PO DAILY 05/21/20 05/21/20 Previous Rx's Medication Instructions Recorded Apixaban [Eliquis] 5 mg PO BID #60 tab 05/23/20 carvediloL 12.5 mg PO BID #180 tablet 05/26/20 Furosemide [Lasix] 20 mg PO BID #60 tab 05/27/20 Insulin Aspart [NovoLOG Flexpen] 10 units SQ AC-TID #0 05/27/20 Losartan [Cozaar] 50 mg PO BID #60 tab 05/27/20 amLODIPine [Norvasc] 5 mg PO BID #60 tab 05/27/20 hydrALAZINE HCL [Apresoline] 100 mg PO TID #90 tab 05/27/20 Allergies Allergy/AdvReac Type Severity Reaction Status Date / Time No Known Allergies Allergy Verified 03/24/24 22:04 Review of Systems ROS Statement: Those systems with pertinent positive or pertinent negative responses have been documented in the HPI. ROS Other: All systems not noted in ROS Statement are negative. Past Medical History Past Medical History: Cancer, Diabetes Mellitus, GERD/Reflux, Hyperlipidemia, Hypertension Additional Past Medical History / Comment(s): past hx colon polyps History of Any Multi-Drug Resistant Organisms: None Reported Past Surgical History: Appendectomy, Cholecystectomy, Coronary Bypass/CABG, Heart Catheterization Additional Past Surgical History / Comment(s): triple bypass 2009 Past Anesthesia/Blood Transfusion Reactions: No Reported Reaction Past Psychological History: No Psychological Hx Reported Smoking Status: Never smoker Past Alcohol Use History: None Reported Past Drug Use History: None Reported - Past Family History Mother Family Medical History: No Reported History General Exam Limitations: no limitations General appearance: alert, in no apparent distress Head exam: Present: atraumatic, normocephalic, normal inspection Eye exam: Present: normal appearance, PERRL, EOMI. Absent: scleral icterus, conjunctival injection, periorbital swelling ENT exam: Present: normal exam, mucous membranes moist Neck exam: Present: normal inspection. Absent: tenderness, meningismus, lymphadenopathy Respiratory exam: Present: normal lung sounds bilaterally. Absent: respiratory distress, wheezes, rales, rhonchi, stridor Cardiovascular Exam: Present: regular rate, normal rhythm, normal heart sounds. Absent: systolic murmur, diastolic murmur, rubs, gallop, clicks GI/Abdominal exam: Present: soft, normal bowel sounds. Absent: distended, tenderness, guarding, rebound, rigid Extremities exam: Present: normal inspection, full ROM, normal capillary refill. Absent: tenderness, pedal edema, joint swelling, calf tenderness Back exam: Present: normal inspection Neurological exam: Present: alert, oriented X3, CN II-XII intact Psychiatric exam: Present: normal affect, normal mood Skin exam: Present: warm, dry, intact, normal color. Absent: rash Course Vital Signs 03/24/24 03/24/24 03/24/24 22:04 22:45 22:54 Temperature 97.4 F L Pulse Rate 85 92 78 Respiratory 16 18 18 Rate Blood Pressure 212/87 187/106 192/116 O2 Sat by Pulse 96 91 L 94 L Oximetry 03/25/24 03/25/24 03/25/24 00:25 01:45 02:51 Temperature Pulse Rate 70 61 61 Respiratory 18 16 16 Rate Blood Pressure 164/76 140/73 173/91 O2 Sat by Pulse 97 96 96 Oximetry 03/25/24 04:14 Temperature Pulse Rate 66 Respiratory 16 Rate Blood Pressure 161/97 O2 Sat by Pulse 96 Oximetry - Reevaluation(s) Reevaluation #1: 03/24/24 22:18 Medical records reviewed Reevaluation #2: 03/25/24 05:05 Patient symptoms improving Reevaluation #3: 03/25/24 05:05 Patient informed of results and questions answered Reevaluation #4: Was pt. sent in by a medical professional or institution (STEPHEN Leong, MOVABLE BULKHEAD INSTALLER, urgent care, hospital, or long-term...) When possible be specific @ -no Did you speak to anyone other than the patient for history (EMS, parent, family, police, friend...)? What history was obtained from this source @ -no Did you review nursing and triage notes (agree or disagree)? Why? @ -agree Are old charts reviewed (outside hosp., previous admission, EMS record, old EKG, old radiological studies, urgent care reports/EKG's, long-term records)? Report findings @ -yes Differential Diagnosis (chest pain, altered mental status, abdominal pain women, abdominal pain men, vaginal bleeding, weakness, fever, dyspnea, syncope, headache, dizziness, GI bleed, back pain, seizure, CVA, palpatations, mental health, musculoskeletal)? @ -prior EKG interpreted by me (3pts min.). @ -yes X-rays interpreted by me (1pt min.). @ -yes negative for acute disease CT interpreted by me (1pt min.). @ -no U/S interpreted by me (1pt. min.). @ -no What testing was considered but not performed or refused? (CT, X-rays, U/S, labs)? Why? @ -none What meds were considered but not given or refused? Why? @ -none Did you discuss the management of the patient with other professionals (georgi tom i.e. STEPHEN Leong, MOVABLE BULKHEAD INSTALLER, lab, RT, psych nurse, social worker assistant, pickling grader, teacher, commissioned defence force officer, egg caser)? Give summary @ -no Was smoking cessation discussed for >3mins.? @ -no Was critical care preformed (if so, how long)? @ -no Were there social determinants of health that impacted care today? How? (Homelessness, low income, unemployed, alcoholism, drug addiction, transportation, low edu. Level, literacy, decrease access to med. care, senior care, rehab)? @ -none Was there de-escalation of care discussed even if they declined (Discuss DNR or withdrawal of care, Hospice)? DNR status @ -no What co-morbidities impacted this encounter? (DM, HTN, Smoking, COPD, CAD, Cancer, CVA, ARF, Chemo, Hep., AIDS, mental health diagnosis, sleep apnea, morbid obesity)? @ -none Was patient admitted / discharged? Hospital course, mention meds given and route, prescriptions, significant lab abnormalities, going to OR and other pertinent info. @ - Undiagnosed new problem with uncertain prognosis? @ -no Drug Therapy requiring intensive monitoring for toxicity (Heparin, Nitro, Insulin, Cardizem)? @ -no Were any procedures done? @ -no Diagnosis/symptom? @ - Acute, or Chronic, or Acute on Chronic? @ -Acute Uncomplicated (without systemic symptoms) or Complicated (systemic symptoms)? @ -Complicated Side effects of treatment? @ -no Exacerbation, Progression, or Severe Exacerbation? @ -exacerbation Poses a threat to life or bodily function? How? (Chest pain, USA, MT, pneumonia, PE, COPD, DKA, ARF, appy, cholecystitis, CVA, Diverticulitis, Homicidal, Suicidal, threat to staff... and all critical care pts) @ -yes Reevaluation #5: Differential Dizziness: Benign paroxysmal positional Vertigo, Meniere's disease, otitis media, acoustic neuroma, vertebrobasilar insufficiency, cerebellar stroke, encephalitis, hypovolemic, arrhythmia, coronary artery syndrome, anemia, this is not meant to be an all-inclusive list - Consultations Consultation #1: With [facility] who agrees to admit this patient Consultation #2: ICU who agrees ICU admission EKG Findings - EKG Comments: EKG Findings:: EKG is A-fib 93 QRS 176 QTc 468 - EKG Results: EKG: interpreted by STEPHANIE Medical Decision Making - Medical Decision Making 78 male to ER for HHS severely elevated hyperglycemia significant overall dehydration and altered mental status and will admit to the ICU - Lab Data Result diagrams: 03/24/24 22:16 03/25/24 01:34 Lab Results 03/24/24 03/24/24 03/24/24 Range/Units 22:16 22:16 22:16 WBC 13.8 H (3.8-10.6) k/uL RBC 3.91 L (4.30-5.90) m/uL Hgb 12.9 L (13.0-17.5) gm/dL Hct 44.8 (39.0-53.0) % MCV 114.6 H D (80.0-100.0) fL MCH 32.9 (25.0-35.0) pg MCHC 28.7 L (31.0-37.0) g/dL RDW 12.7 (11.5-15.5) % Plt Count 265 (150-450) k/uL MPV 8.3 Neutrophils % 94 % Lymphocytes % 3 % Monocytes % 2 % Eosinophils % 0 % Basophils % 0 % Neutrophils # 13.0 H (1.3-7.7) k/uL Lymphocytes # 0.4 L (1.0-4.8) k/uL Monocytes # 0.3 (0-1.0) k/uL Eosinophils # 0.0 (0-0.7) k/uL Basophils # 0.0 (0-0.2) k/uL Hypochromasia Marked Macrocytosis Marked A PT 10.7 (10.0-12.5) sec INR 1.0 (<1.2) APTT 26.1 (22.0-30.0) sec Sodium (137-145) mmol/L Potassium (3.5-5.1) mmol/L Chloride (98-107) mmol/L Carbon Dioxide (22-30) mmol/L Anion Gap mmol/L BUN (9-20) mg/dL Creatinine (0.66-1.25) mg/dL Est GFR (CKD-EPI)AfAm (>60 ml/min/1.73 sqM) Est GFR (CKD-EPI)NonAf (>60 ml/min/1.73 sqM) Glucose (74-99) mg/dL POC Glucose (mg/dL) >600 H* (70-110) mg/dL POC Glu Pharmacy Benefits Coordinator ID Chang Dobbs Lactic Ac Sepsis Rflx Plasma Lactic Acid [place] (0.7-2.0) mmol/L Calcium (8.4-10.2) mg/dL Phosphorus (2.5-4.5) mg/dL Magnesium (1.6-2.3) mg/dL Total Bilirubin (0.2-1.3) mg/dL AST (17-59) U/L ALT (4-49) U/L Alkaline Phosphatase (38-126) U/L Troponin I (0.000-0.034) ng/mL Total Protein (6.3-8.2) g/dL Albumin (3.5-5.0) g/dL Serum Alcohol mg/dL Acetone, Qual (Negative) 03/24/24 03/24/24 03/24/24 Range/Units 22:16 22:16 22:16 WBC (3.8-10.6) k/uL RBC (4.30-5.90) m/uL Hgb (13.0-17.5) gm/dL Hct (39.0-53.0) % MCV (80.0-100.0) fL MCH (25.0-35.0) pg MCHC (31.0-37.0) g/dL RDW (11.5-15.5) % Plt Count (150-450) k/uL MPV Neutrophils % % Lymphocytes % % Monocytes % % Eosinophils % % Basophils % % Neutrophils # (1.3-7.7) k/uL Lymphocytes # (1.0-4.8) k/uL Monocytes # (0-1.0) k/uL Eosinophils # (0-0.7) k/uL Basophils # (0-0.2) k/uL Hypochromasia Macrocytosis PT (10.0-12.5) sec INR (<1.2) APTT (22.0-30.0) sec Sodium 123 L (137-145) mmol/L Potassium 4.9 (3.5-5.1) mmol/L Chloride 95 L (98-107) mmol/L Carbon Dioxide 14 L (22-30) mmol/L Anion Gap 14 mmol/L BUN 41 H (9-20) mg/dL Creatinine 2.65 H (0.66-1.25) mg/dL Est GFR (CKD-EPI)AfAm 26 (>60 ml/min/1.73 sqM) Est GFR (CKD-EPI)NonAf 22 (>60 ml/min/1.73 sqM) Glucose 1551 H* (74-99) mg/dL POC Glucose (mg/dL) (70-110) mg/dL POC Glu Pharmacy Benefits Coordinator ID Lactic Ac Sepsis Rflx Plasma Lactic Acid [place] 3.2 H* (0.7-2.0) mmol/L Calcium 9.5 (8.4-10.2) mg/dL Phosphorus 4.7 H (2.5-4.5) mg/dL Magnesium 2.0 (1.6-2.3) mg/dL Total Bilirubin 0.9 (0.2-1.3) mg/dL AST 20 (17-59) U/L ALT 28 (4-49) U/L Alkaline Phosphatase 171 H (38-126) U/L Troponin I 0.074 H* (0.000-0.034) ng/mL Total Protein 6.1 L (6.3-8.2) g/dL Albumin 3.2 L (3.5-5.0) g/dL Serum Alcohol <10 mg/dL Acetone, Qual Negative (Negative) 03/24/24 Range/Units 23:26 WBC (3.8-10.6) k/uL RBC (4.30-5.90) m/uL Hgb (13.0-17.5) gm/dL Hct (39.0-53.0) % MCV (80.0-100.0) fL MCH (25.0-35.0) pg MCHC (31.0-37.0) g/dL RDW (11.5-15.5) % Plt Count (150-450) k/uL MPV Neutrophils % % Lymphocytes % % Monocytes % % Eosinophils % % Basophils % % Neutrophils # (1.3-7.7) k/uL Lymphocytes # (1.0-4.8) k/uL Monocytes # (0-1.0) k/uL Eosinophils # (0-0.7) k/uL Basophils # (0-0.2) k/uL Hypochromasia Macrocytosis PT (10.0-12.5) sec INR (<1.2) APTT (22.0-30.0) sec Sodium (137-145) mmol/L Potassium (3.5-5.1) mmol/L Chloride (98-107) mmol/L Carbon Dioxide (22-30) mmol/L Anion Gap mmol/L BUN (9-20) mg/dL Creatinine (0.66-1.25) mg/dL Est GFR (CKD-EPI)AfAm (>60 ml/min/1.73 sqM) Est GFR (CKD-EPI)NonAf (>60 ml/min/1.73 sqM) Glucose (74-99) mg/dL POC Glucose (mg/dL) (70-110) mg/dL POC Glu Pharmacy Benefits Coordinator ID Lactic Ac Sepsis Rflx Y Plasma Lactic Acid [place] (0.7-2.0) mmol/L Calcium (8.4-10.2) mg/dL Phosphorus (2.5-4.5) mg/dL Magnesium (1.6-2.3) mg/dL Total Bilirubin (0.2-1.3) mg/dL AST (17-59) U/L ALT (4-49) U/L Alkaline Phosphatase (38-126) U/L Troponin I (0.000-0.034) ng/mL Total Protein (6.3-8.2) g/dL Albumin (3.5-5.0) g/dL Serum Alcohol mg/dL Acetone, Qual (Negative) - Radiology Data Radiology results: report reviewed (CT brain C-spine negative for acute disease), image reviewed Critical Care Time Critical Care Time: Yes Total Critical Care Time: 31 Disposition Clinical Impression: Hyperosmolar hyperglycemic state (HHS), RUCHI (acute kidney injury), Altered mental status Disposition: ADMITTED IP TO THIS [facility] Condition: Critical Is patient prescribed a controlled substance at d/c from ED?: No
[2024-03-24 22:27] LABS: Basophils % (A) 0 %; Eosinophils % (A) 0 %; HCT 44.8 % (39.0-53.0); HGB 12.9 gm/dL (13.0-17.5); Hypochromasia Marked; Lymphocytes # (A) 0.4 k/uL (1.0-4.8); Lymphocytes % (A) 3 %; MCH 32.9 pg (25.0-35.0); MCHC 28.7 g/dL (31.0-37.0); Macrocytosis Marked; Mean Platelet Volume 8.3; Monocytes # (A) 0.3 k/uL (0-1.0); Monocytes % (A) 2 %; Neutrophils % (A) 94 %; Platelet Count 265 k/uL (150-450); RBC 3.91 m/uL (4.30-5.90); RDW 12.7 % (11.5-15.5); WBC 13.8 k/uL (3.8-10.6)
--- NOTE | 2024-03-24 22:34 | CT ---
EXAM: CT Head Without Intravenous Contrast CLINICAL HISTORY: ITS.REASON CT Reason: fall TECHNIQUE: Axial computed tomography images of the head/brain without intravenous contrast. CTDI is 45.2 mGy and DLP is 1059 mGy-cm. This CT exam was performed using one or more of the following dose reduction techniques: automated exposure control, adjustment of the mA and/or kV according to patient size, and/or use of iterative reconstruction technique. 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 Chronic left occipital lobe lacunar infarct. No acute intracranial hemorrhage. No acute transcortical infarct. Ventricles: Unremarkable. No ventriculomegaly. Bones/joints: Unremarkable. No acute fracture. Soft tissues: Unremarkable. Sinuses: Unremarkable as visualized. No acute sinusitis. Mastoid air cells: Unremarkable as visualized. No mastoid effusion. IMPRESSION: No acute findings in the head/brain. EXAM: CT Cervical Spine Without Intravenous Contrast CLINICAL HISTORY: ITS.REASON CT Reason: fall TECHNIQUE: Axial computed tomography images of the cervical spine without intravenous contrast. CTDI is 11.8 mGy and DLP is 306.6 mGy-cm. This CT exam was performed using one or more of the following dose reduction techniques: automated exposure control, adjustment of the mA and/or kV according to patient size, and/or use of iterative reconstruction technique. COMPARISON: No relevant prior studies available. FINDINGS: Vertebrae: Unremarkable. No acute fracture. Discs/spinal canal/neural foramina: No acute findings. No spinal canal stenosis. Soft tissues: Unremarkable. IMPRESSION: Normal cervical spine CT.
[2024-03-24 22:45] LABS: ALT 28 U/L (4-49); AST 20 U/L (17-59); African American GFR (CKD) 26 (>60 ml/min/1.73 sqM); Albumin 3.2 g/dL (3.5-5.0); Alkaline Phosphatase 171 U/L (38-126); Anion Gap 14 mmol/L; Blood Urea Nitrogen 41 mg/dL (9-20); Calcium 9.5 mg/dL (8.4-10.2); Carbon Dioxide 14 mmol/L (22-30); Chloride 95 mmol/L (98-107); Non-African American GFR(CKD) 22 (>60 ml/min/1.73 sqM); Phosphorus 4.7 mg/dL (2.5-4.5); Potassium 4.9 mmol/L (3.5-5.1); Sodium 123 mmol/L (137-145); Total Bilirubin 0.9 mg/dL (0.2-1.3); Total Protein 6.1 g/dL (6.3-8.2)
[2024-03-24 22:46] LABS: MCV 114.6 fL (80.0-100.0)
[2024-03-24 22:52] LABS: Partial Thromboplastin Time 26.1 sec (22.0-30.0); Prothrombin Time 10.7 sec (10.0-12.5)
[2024-03-24 23:11] LABS: Glucose 1551 mg/dL (74-99)
[2024-03-24 23:20] LABS: Alcohol <10 mg/dL
[2024-03-25] MEDS: LABETALOL 5 MG/ML VIAL MDV IVP STA (00:17)
[2024-03-25] MEDS: SODIUM CHLORIDE 0.9% 1,000 ML IV STA ×3 (00:27→00:36)
[2024-03-25] MEDS: INSULIN REGULAR 100 UNIT/ML VIAL (IV) IV ONE (00:27)
[2024-03-25] MEDS: INSULIN REGULAR 100 UNIT/ML VIAL (IM/SQ) SQ ONE (00:35)
[2024-03-25] MEDS: SODIUM CHLORIDE 0.9% 500 ML 500 ML IV STA (00:35)
[2024-03-25] MEDS ORDERED: DEXTROSE 50% SYRINGE 50 ML IVP PRN ×6 (01:18→02:09)
[2024-03-25] MEDS ORDERED: MORPHINE SULFATE 4 MG/ML SYRINGE IV PRN (01:18)
[2024-03-25] MEDS ORDERED: NALOXONE 0.4 MG/ML 1 ML VIAL IV PRN (01:18)
[2024-03-25] MEDS ORDERED: ONDANSETRON 4 MG/2 ML VIAL IVP PRN (01:18)
[2024-03-25 01:30] LABS: Glucose,Whole Blood >600 mg/dL (70-110)
[2024-03-25] MEDS ORDERED: Potassium Replacement Protocol 1 EACH MISC MISCELLANE PRN (01:55)
[2024-03-25] MEDS ORDERED: Magnesium Replacement Protocol 1 EACH MISC MISCELLANE PRN (01:55)
[2024-03-25] MEDS ORDERED: SODIUM CHLORIDE 0.9% 1,000 ML IV SCH (02:00)
[2024-03-25] MEDS ORDERED: INSULIN REGULAR 100 UNIT in SODIUM CHLORIDE 0.9% 100 ML IV SCH (02:00)
[2024-03-25] MEDS ORDERED: D5-0.45% NACL WITH KCL 20MEQ/L 1,000 ML IV SCH ×2 (02:00→09:30)
[2024-03-25 02:01] LABS: VBG PH 7.2 (7.31-7.41)
[2024-03-25 02:06] LABS: Amorphous Sediment,Urine Occasional /hpf; Appearance,Urine Clear (Clear); Bilirubin,Urine Negative (Negative); Blood,Urine Large (Negative); Color,Urine Colorless; Glucose,Urine (UA) 4+ (Negative); Granular Casts,Urine 1 /lpf (0); Hyaline Casts,Urine 6 /lpf (0-2); Ketones,Urine Negative (Negative); Leukocyte Esterase,Urine Small (Negative); Mucus,Urine Rare /hpf; Nitrite,Urine Negative (Negative); PH, Urine 5.5 (5.0-8.0); Protein,Urine 1+ (Negative); RBC,Urine 27 /hpf (0-5); Specific Gravity,Urine 1.025 (1.001-1.035); Squamous Epithelial Cell,Urine <1 /hpf (0-4); Urobilinogen,Urine <2.0 mg/dL (<2.0); WBC,Urine 162 /hpf (0-5)
[2024-03-25 02:13] LABS: African American GFR (CKD) 26 (>60 ml/min/1.73 sqM); Anion Gap 10 mmol/L; Blood Urea Nitrogen 39 mg/dL (9-20); Calcium 8.7 mg/dL (8.4-10.2); Carbon Dioxide 10 mmol/L (22-30); Chloride 109 mmol/L (98-107); Non-African American GFR(CKD) 23 (>60 ml/min/1.73 sqM); Potassium 4.1 mmol/L (3.5-5.1); Sodium 129 mmol/L (137-145)
[2024-03-25 02:26] LABS: Glucose 1165 mg/dL (74-99)
[2024-03-25] MEDS: INSULIN REGULAR BOLUS (FROM DRIP BAG) IV ONE ×2 (03:02→03:07)
[2024-03-25] MEDS: INSULIN REGULAR 100 UNIT in SODIUM CHLORIDE 0.9% 100 ML IV SCH (03:05)
[2024-03-25] MEDS: SODIUM CHLORIDE 0.9% 1,000 ML IV SCH ×2 (03:08→03:16)
[2024-03-25 04:07] LABS: Glucose,Whole Blood >600 mg/dL (70-110)
[2024-03-25 05:08] LABS: Glucose,Whole Blood >600 mg/dL (70-110)
[2024-03-25 05:16] LABS: African American GFR (CKD) 27 (>60 ml/min/1.73 sqM); Anion Gap 7 mmol/L; Blood Urea Nitrogen 39 mg/dL (9-20); Carbon Dioxide 12 mmol/L (22-30); Chloride 112 mmol/L (98-107); Non-African American GFR(CKD) 23 (>60 ml/min/1.73 sqM); Sodium 131 mmol/L (137-145)
[2024-03-25 05:31] LABS: Glucose 773 mg/dL (74-99); Phosphorus 3.2 mg/dL (2.5-4.5); Potassium 5.1 mmol/L (3.5-5.1)
[2024-03-25 06:19] LABS: Glucose,Whole Blood 495 mg/dL (70-110)
[2024-03-25 07:06] LABS: Glucose,Whole Blood 456 mg/dL (70-110)
[2024-03-25] MEDS ORDERED: INSULIN ASPART (NovoLOG) 100 UNIT/ML VIAL SQ SCH (07:30)
[2024-03-25 08:07] LABS: Glucose,Whole Blood 384 mg/dL (70-110)
[2024-03-25] MEDS: PANTOPRAZOLE 40 MG/10 ML VIAL IV SCH (08:50)
[2024-03-25 09:08] LABS: Glucose,Whole Blood 295 mg/dL (70-110)
[2024-03-25 10:20] LABS: Glucose,Whole Blood 225 mg/dL (70-110)
--- NOTE | 2024-03-25 10:49 | P.CNPUL ---
History of Present Illness Consult date: 03/25/24 Requesting physician: Luz Alexis Reason for consult: other (ICU management) Chief complaint: Weakness History of present illness: Is a 78-year-old white male with multiple medical problems including coronary artery disease, CABG x 3 in 2008, type 2 diabetes, hypertension, dyslipidemia, history of kidney cancer and previous left nephrectomy. Patient was brought into the ER yesterday with altered mental status, and supposedly weakness and dizziness. His blood sugar was over 1500. Patient was admitted with hyperglycemic, hyperosmolar state. Patient received fluid boluses in the ER, remains on IV fluid 0.9 normal saline at 130 cc/h. Patient is on insulin at 40 units/h. His blood sugars have come down nicely his last blood sugar this morning was 384. Patient is noted to clinically improve, his mental status has cleared significantly since admission yesterday. Labs this morning showed sodium of 131 potassium 5.1 chloride 112 bicarb is 12 BUN is 39 creatinine 2.56. Initial creatinine on admission was 2.65. Baseline creatinine is 2.13 from few weeks ago, in 2020 his baseline creatinine was 1.41. Urinalysis showed negative ketones. Review of Systems CONSTITUTIONAL: Generalized weakness HEENT: Denies blurred vision, vision changes, or eye pain. Denies hemoptysis CARDIOVASCULAR: Denies chest pain, orthopnea, PND or palpitations RESPIRATORY: No shortness of breath., No chest pain, no orthopnea, no PND GASTROINTESTINAL: Denies abdominal pain. Denies nausea or vomiting. HEMATOLOGIC: Denies bleeding disorders. GENITOURINARY: Denies any blood in urine. SKIN: Denies pruitis. Denies rash. Past Medical History Past Medical History: Cancer, Diabetes Mellitus, GERD/Reflux, Hyperlipidemia, Hypertension Additional Past Medical History / Comment(s): past hx colon polyps History of Any Multi-Drug Resistant Organisms: None Reported Past Surgical History: Appendectomy, Cholecystectomy, Coronary Bypass/CABG, Heart Catheterization Additional Past Surgical History / Comment(s): triple bypass 2009 Past Anesthesia/Blood Transfusion Reactions: No Reported Reaction Past Psychological History: No Psychological Hx Reported Smoking Status: Never smoker Past Alcohol Use History: None Reported Additional Past Alcohol Use History / Comment(s): STARTED SMOKING AT AGE 27 QUIT SMOKING AT AGE 37 SMOKED 1 PPD Past Drug Use History: None Reported - Past Family History Mother Family Medical History: No Reported History Medications and Allergies Home Medications Medication Instructions Recorded Confirmed Type Atorvastatin [Lipitor] 80 mg PO HS 07/29/16 03/25/24 History Insulin Glargine,Hum.rec.anlog 30 - 40 unit SQ HS 11/03/18 03/25/24 History [Lantus Solostar Pen] Tamsulosin [Flomax] 0.4 mg PO HS 11/03/18 03/25/24 History Clopidogrel Bisulfate [Plavix] 75 mg PO DAILY 05/21/20 03/25/24 History Apixaban [Eliquis] 5 mg PO BID #60 tab 05/23/20 03/25/24 Rx Dapagliflozin Propanediol [Farxiga] 5 mg PO DAILY 03/25/24 03/25/24 History Insulin Aspart [NovoLOG Flexpen] See Protocol SQ AC-TID 03/25/24 03/25/24 Histor y Losartan [Cozaar] 50 mg PO DAILY 03/25/24 03/25/24 History carvediloL [Coreg] 25 mg PO BID 03/25/24 03/25/24 History hydrALAZINE HCL [Apresoline] 50 mg PO TID 03/25/24 03/25/24 History Allergies Allergy/AdvReac Type Severity Reaction Status Date / Time No Known Allergies Allergy Verified 03/24/24 22:04 Physical Exam Vitals: Vital Signs Temp Pulse Pulse Resp BP BP Pulse Ox 03/25/24 10:00 62 13 166/89 96 03/25/24 09:00 62 26 H 165/91 97 03/25/24 08:28 97.9 F 59 L 24 165/91 98 03/25/24 08:04 97.9 F 71 25 H 165/91 97 03/25/24 07:12 63 16 162/85 98 03/25/24 06:35 52 L 18 168/90 95 03/25/24 05:20 65 18 170/88 97 03/25/24 04:14 66 16 161/97 96 03/25/24 02:51 61 16 173/91 96 03/25/24 01:45 61 16 140/73 96 03/25/24 00:25 70 18 164/76 97 03/24/24 22:54 78 18 192/116 94 L 03/24/24 22:45 92 18 187/106 91 L 03/24/24 22:04 97.4 F L 85 16 212/87 96 Intake and Output 03/24/24 03/25/24 03/25/24 22:59 06:59 14:59 Intake Total 25.922 450 Output Total 450 165 Balance -424.078 285 Intake: IV 450 Sodium Chloride 0.9% 1, 450 000 ml @ 150 mls/hr IV . Q6H40M [facility] Rx#:[id number] Intake, IV Titration 25.922 Amount Insulin Regular 100 unit 25.922 In Sodium Chloride 0.9% 100 ml @ 0.1 UNITS/KG/HR 8.017 mls/hr IV .[id number] [facility] Rx#:[id number] Output: Urine 450 165 Other: Voiding Method Indwelling Catheter Weight 79.379 kg 79.379 kg General: Revealed 78-year-old white male, in no distress Head: Atraumatic, normocephalic Skin: Skin is warm and dry and no rashes or lesions are noted. Eye: Pupils are equal, round and reactive to light, extra-ocular movements are intact; there is normal conjunctiva bilaterally. Ears, nose, mouth and throat: There are moist mucous membranes and no oral lesions. Neck: The neck is supple, there is no tenderness or JVD. Cardiovascular: Irregular irregular rhythm, normal S1-S2,. No murmur, rub or gallop is appreciated. Respiratory: Clear bilaterally no rhonchi no wheezes Gastrointestinal: Soft, non-distended, non-tender abdomen without masses or organomegaly noted. There is no rebound or guarding present. Bowel sounds are unremarkable. Back: There is no tenderness to palpation in the midline. There is no obvious deformity. Musculoskeletal: No limitation range of motion, no deformities eciated. Neurological: CN II-XII intact, Cranial nerves III through XII are intact. Psychiatric: Normal mood affect and normal mental status examination Results - Laboratory Findings CBC and BMP: 03/24/24 22:16 03/25/24 04:50 PT/INR, D-dimer PT 10.7 sec (10.0-12.5) 03/24/24 22:16 INR 1.0 (<1.2) 03/24/24 22:16 Abnormal lab findings: Abnormal Labs 03/24/24 03/24/24 03/24/24 22:16 22:16 22:16 WBC 13.8 H RBC 3.91 L Hgb 12.9 L MCV 114.6 H D MCHC 28.7 L Neutrophils # 13.0 H Lymphocytes # 0.4 L Macrocytosis Marked A VBG pH VBG pCO2 VBG HCO3 Sodium 123 L Chloride 95 L Carbon Dioxide 14 L BUN 41 H Creatinine 2.65 H Glucose 1551 H* POC Glucose (mg/dL) >600 H* Plasma Lactic Acid [place] Phosphorus 4.7 H Alkaline Phosphatase 171 H Troponin I Total Protein 6.1 L Albumin 3.2 L Urine Protein Urine Glucose (UA) Urine Blood Ur Leukocyte Esterase Urine RBC Urine WBC Amorphous Sediment Hyaline Casts Urine Mucus 03/24/24 03/24/24 03/25/24 22:16 22:16 01:29 WBC RBC Hgb MCV MCHC Neutrophils # Lymphocytes # Macrocytosis VBG pH VBG pCO2 VBG HCO3 Sodium Chloride Carbon Dioxide BUN Creatinine Glucose POC Glucose (mg/dL) >600 H* Plasma Lactic Acid [place] 3.2 H* Phosphorus Alkaline Phosphatase Troponin I 0.074 H* Total Protein Albumin Urine Protein Urine Glucose (UA) Urine Blood Ur Leukocyte Esterase Urine RBC Urine WBC Amorphous Sediment Hyaline Casts Urine Mucus 03/25/24 03/25/24 03/25/24 01:34 01:34 01:34 WBC RBC Hgb MCV MCHC Neutrophils # Lymphocytes # Macrocytosis VBG pH 7.20 L* VBG pCO2 33 L VBG HCO3 13 L Sodium Chloride Carbon Dioxide BUN Creatinine Glucose POC Glucose (mg/dL) Plasma Lactic Acid [place] 3.0 H* Phosphorus Alkaline Phosphatase Troponin I Total Protein Albumin Urine Protein 1+ H Urine Glucose (UA) 4+ H Urine Blood Large H Ur Leukocyte Esterase Small H Urine RBC 27 H Urine WBC 162 H Amorphous Sediment Occasional H Hyaline Casts 6 H Urine Mucus Rare H 03/25/24 03/25/24 03/25/24 01:34 04:06 04:50 WBC RBC Hgb MCV MCHC Neutrophils # Lymphocytes # Macrocytosis VBG pH VBG pCO2 VBG HCO3 Sodium 129 L 131 L Chloride 109 H 112 H Carbon Dioxide 10 L 12 L BUN 39 H 39 H Creatinine 2.62 H 2.56 H Glucose 1165 H* 773 H* POC Glucose (mg/dL) >600 H* Plasma Lactic Acid [place] Phosphorus Alkaline Phosphatase Troponin I Total Protein Albumin Urine Protein Urine Glucose (UA) Urine Blood Ur Leukocyte Esterase Urine RBC Urine WBC Amorphous Sediment Hyaline Casts Urine Mucus 03/25/24 03/25/24 03/25/24 05:06 05:12 06:18 WBC RBC Hgb MCV MCHC Neutrophils # Lymphocytes # Macrocytosis VBG pH VBG pCO2 VBG HCO3 Sodium Chloride Carbon Dioxide BUN Creatinine Glucose POC Glucose (mg/dL) >600 H* 495 H Plasma Lactic Acid [place] 2.1 H* Phosphorus Alkaline Phosphatase Troponin I Total Protein Albumin Urine Protein Urine Glucose (UA) Urine Blood Ur Leukocyte Esterase Urine RBC Urine WBC Amorphous Sediment Hyaline Casts Urine Mucus 03/25/24 03/25/24 03/25/24 07:04 08:06 09:06 WBC RBC Hgb MCV MCHC Neutrophils # Lymphocytes # Macrocytosis VBG pH VBG pCO2 VBG HCO3 Sodium Chloride Carbon Dioxide BUN Creatinine Glucose POC Glucose (mg/dL) 456 H 384 H 295 H Plasma Lactic Acid [place] Phosphorus Alkaline Phosphatase Troponin I Total Protein Albumin Urine Protein Urine Glucose (UA) Urine Blood Ur Leukocyte Esterase Urine RBC Urine WBC Amorphous Sediment Hyaline Casts Urine Mucus 03/25/24 10:19 WBC RBC Hgb MCV MCHC Neutrophils # Lymphocytes # Macrocytosis VBG pH VBG pCO2 VBG HCO3 Sodium Chloride Carbon Dioxide BUN Creatinine Glucose POC Glucose (mg/dL) 225 H Plasma Lactic Acid [place] Phosphorus Alkaline Phosphatase Troponin I Total Protein Albumin Urine Protein Urine Glucose (UA) Urine Blood Ur Leukocyte Esterase Urine RBC Urine WBC Amorphous Sediment Hyaline Casts Urine Mucus - Diagnostic Findings Additional studies: CT of head and cervical spine is negative Assessment and Plan Assessment: Impression: Acute hyperosmolar hyperglycemic state. Acute dehydration secondary to above Acute on chronic kidney injury secondary to dehydration History of type 2 diabetes Chronic atrial fibrillation History of coronary artery disease and previous CABG x 3 in 2009 History of renal cell carcinoma and previous left nephrectomy Benign essential hypertension Dyslipidemia History of GERD Recommendation: Continue treatment plan with insulin and titrate accordingly Continue IV fluid in the form of 0.9 normal saline Continue to monitor electrolytes blood sugar and renal profile Consider transitioning the patient to Levemir insulin and subcu NovoLog insulin later this afternoon Resume home meds mostly cardiac meds Resume his treatment for diabetes including farxiga Resume his home meds for hypertension Resume his Eliquis Will continue to follow Time with Patient: Greater than 30
[2024-03-25 11:06] LABS: Glucose,Whole Blood 168 mg/dL (70-110)
[2024-03-25] MEDS: carvediloL 12.5 MG TAB PO SCH (11:09)
[2024-03-25] MEDS: APIXABAN 5 MG TAB PO SCH (11:09)
--- NOTE | 2024-03-25 11:40 | P.NPCON ---
History of Present Illness - Reason for Consult Consult date: 03/25/24 - Chief Complaint AMS - History of Present Illness Patient 78 year old brought by family to ED due to weakness and AMS. History obtained from daughter bedside. Patient recently had urinary retention requiring Villafuerte placement. Went Tuesday for removal but continued to have retention and Villafuerte replaced morning. Has been feeling weaker over past week and stopped taking his medications including diabetes medications. Was more confused and brought to hospital found to have significant elevated glucose as well as RUCHI. This morning patient is more awake and feeling better. Patient is awake, no acute distress. Examination of the heart S1 and S2 Examination of the lungs bilateral breath sounds are heard. Abdomen is soft nontender Examination lower extremity shows no edema Review of Systems ROS unobtainable: due to mental status Past Medical History Past Medical History: Cancer, Diabetes Mellitus, GERD/Reflux, Hyperlipidemia, Hypertension Additional Past Medical History / Comment(s): past hx colon polyps History of Any Multi-Drug Resistant Organisms: None Reported Past Surgical History: Appendectomy, Cholecystectomy, Coronary Bypass/CABG, Heart Catheterization Additional Past Surgical History / Comment(s): triple bypass 2009 Past Anesthesia/Blood Transfusion Reactions: No Reported Reaction Past Psychological History: No Psychological Hx Reported Smoking Status: Never smoker Past Alcohol Use History: None Reported Additional Past Alcohol Use History / Comment(s): STARTED SMOKING AT AGE 27 QUIT SMOKING AT AGE 37 SMOKED 1 PPD Past Drug Use History: None Reported - Past Family History Mother Family Medical History: No Reported History Medications and Allergies Home Medications Medication Instructions Recorded Confirmed Type Atorvastatin [Lipitor] 80 mg PO HS 07/29/16 03/25/24 History Insulin Glargine,Hum.rec.anlog 30 - 40 unit SQ HS 11/03/18 03/25/24 History [Lantus Solostar Pen] Tamsulosin [Flomax] 0.4 mg PO HS 11/03/18 03/25/24 History Clopidogrel Bisulfate [Plavix] 75 mg PO DAILY 05/21/20 03/25/24 History Apixaban [Eliquis] 5 mg PO BID #60 tab 05/23/20 03/25/24 Rx Dapagliflozin Propanediol [Farxiga] 5 mg PO DAILY 03/25/24 03/25/24 History Insulin Aspart [NovoLOG Flexpen] See Protocol SQ AC-TID 03/25/24 03/25/24 History Losartan [Cozaar] 50 mg PO DAILY 03/25/24 03/25/24 History carvediloL [Coreg] 25 mg PO BID 03/25/24 03/25/24 History hydrALAZINE HCL [Apresoline] 50 mg PO TID 03/25/24 03/25/24 History Allergies Allergy/AdvReac Type Severity Reaction Status Date / Time No Known Allergies Allergy Verified 03/24/24 22:04 Physical Exam Vitals: Vital Signs Temp Pulse Pulse Resp BP BP Pulse Ox 03/25/24 09:00 62 26 H 165/91 97 03/25/24 08:28 97.9 F 59 L 24 165/91 98 03/25/24 08:04 97.9 F 71 25 H 165/91 97 03/25/24 07:12 63 16 162/85 98 03/25/24 06:35 52 L 18 168/90 95 03/25/24 05:20 65 18 170/88 97 03/25/24 04:14 66 16 161/97 96 03/25/24 02:51 61 16 173/91 96 03/25/24 01:45 61 16 140/73 96 03/25/24 00:25 70 18 164/76 97 03/24/24 22:54 78 18 192/116 94 L 03/24/24 22:45 92 18 187/106 91 L 03/24/24 22:04 97.4 F L 85 16 212/87 96 Intake and Output 03/24/24 03/25/24 03/25/24 22:59 06:59 14:59 Intake Total 25.922 300 Output Total 450 125 Balance -424.078 175 Intake: IV 300 Sodium Chloride 0.9% 1, 300 000 ml @ 150 mls/hr IV . Q6H40M [facility] Rx#:[id number] Intake, IV Titration 25.922 Amount Insulin Regular 100 unit 25.922 In Sodium Chloride 0.9% 100 ml @ 0.1 UNITS/KG/HR 8.017 mls/hr IV .[id number] [facility] Rx#:[id number] Output: Urine 450 125 Other: Voiding Method Indwelling Catheter Weight 79.379 kg 79.379 kg Results - Lab Results Most recent lab results Calcium 8.7 mg/dL (8.4-10.2) 03/25/24 01:34 Phosphorus 3.2 mg/dL (2.5-4.5) 03/25/24 04:50 Magnesium 2.0 mg/dL (1.6-2.3) 03/24/24 22:16 03/24/24 22:16 03/25/24 04:50 Assessment and Plan Assessment: 1. Non-oliguric RUCHI likely ATN volume depletion. Presented creatinine 2.6-->2.5. UA shows granular and hyaline casts with possible UTI. Currently with Villafuerte. 2. HHS with Type 2 DM 3. Metabolic Acidosis due to RUCHI and lactic acidosis. No ketones in urine. 4. AMS due to #2. Doubt uremia 5. CKD Stage 3a. Previous creatinine 1.4-1.6 mg/dL. May have progressed. 6. Pseudohyponatremia related to hyperglycemia Plan: Continue agressive IVF and insulin drip Villafuerte with strict I/O's No need for bicarb drip, should improve as renal function and glucose improves Supportive care
[2024-03-25 12:13] LABS: Glucose,Whole Blood 179 mg/dL (70-110)
[2024-03-25 13:05] LABS: Glucose,Whole Blood 207 mg/dL (70-110)
[2024-03-25] MEDS: INSULIN DETEMIR (LEVEMIR) 100 UNIT/ML SYR SQ SCH (13:24)
--- NOTE | 2024-03-25 13:26 | P.HPIM ---
History of Present Illness H&P Date: 03/25/24 History of present illness; patient 78-year-old gentleman with past medical history significant for diabetes mellitus, hypertension who presented to ER because of altered mental status. Patient history is limited because of his confusion. According to the EMR family noted the patient has been increasingly weak for the last week. Patient has been unable to get out of the bed. There was no complaint of fever or chills. There was no report of any chest pain or shortness of breath. There was no complaint of any recent fall or head trauma. Initial lab work done in the ER showed WBC 13.8, hemoglobin 12.9, platelet count 265, sodium 123, potassium 4.9, BUN 41, creatinine 2.65, glucose 1551, lactate 3.2 phosphorus 4.7, troponin 0.074 UA done showed urine WBC 162, urine leukocyte esterase small amount EKG done in the ER showed heart rate of93, irregular rhythm, no ST segment elevation or depression seen, no T-wave inversions seen. CT head done showed no acute intracranial process CT cervical spine negative for acute cervical spine fracture or subluxation Patient admitted to internal medicine service REVIEW OF SYSTEMS: Review of system cannot be obtained patient is confused PHYSICAL EXAMINATION: GENERAL: The patient is alert to self. HEENT: Pupils are round and equally reacting to light. EOMI. No scleral icterus. No conjunctival pallor. Normocephalic, atraumatic. No pharyngeal erythema. No thyromegaly. CARDIOVASCULAR: S1 and S2 present. No murmurs, rubs, or gallops. PULMONARY: Chest is clear to auscultation, no wheezing or crackles. ABDOMEN: Soft, nontender, nondistended, normoactive bowel sounds. No palpable organomegaly. MUSCULOSKELETAL: No joint swelling or deformity. EXTREMITIES: No cyanosis, clubbing, or pedal edema. NEUROLOGICAL: Gross neurological examination did not reveal any focal deficits. SKIN: No rashes. Assessment and plan Hyperglycemic hyperosmolar state Acute metabolic encephalopathy Dehydration Pseudohyponatremia Acute on chronic kidney disease Chronic atrial fibrillation Lactic acidosis Insulin-dependent diabetes mellitus Hypertension History of coronary disease status post CABG Hyperlipidemia History of kidney cancer Monitor vital signs Monitor CBC Monitor CMP Continue telemetry monitoring Serial glucose monitoring Serial electrolytes every 4 hourly Start insulin drip Continue IV fluids Resume home meds Consult ICU for critical care management Labs and medication were reviewed.. Continue same treatment. Continue with symptomatic treatment. Resume home medication. Monitor labs and vitals. DVT and GI prophylaxis. Further recommendations as per clinical course of the patient Dictation was produced using [employer] dictation software. please excuse any grammatical, word or spelling errors. Past Medical History Past Medical History: Cancer, Diabetes Mellitus, GERD/Reflux, Hyperlipidemia, Hypertension Additional Past Medical History / Comment(s): past hx colon polyps History of Any Multi-Drug Resistant Organisms: None Reported Past Surgical History: Appendectomy, Cholecystectomy, Coronary Bypass/CABG, Heart Catheterization Additional Past Surgical History / Comment(s): triple bypass 2008 Past Anesthesia/Blood Transfusion Reactions: No Reported Reaction Past Psychological History: No Psychological Hx Reported Smoking Status: Never smoker Past Alcohol Use History: None Reported Additional Past Alcohol Use History / Comment(s): STARTED SMOKING AT AGE 27 QUIT SMOKING AT AGE 37 SMOKED 1 PPD Past Drug Use History: None Reported - Past Family History Mother Family Medical History: No Reported History Medications and Allergies Home Medications Medication Instructions Recorded Confirmed Type Atorvastatin [Lipitor] 80 mg PO HS 07/29/16 03/25/24 History Insulin Glargine,Hum.rec.anlog 30 - 40 unit SQ HS 11/03/18 03/25/24 History [Lantus Solostar Pen] Tamsulosin [Flomax] 0.4 mg PO HS 11/03/18 03/25/24 History Clopidogrel Bisulfate [Plavix] 75 mg PO DAILY 05/21/20 03/25/24 History Apixaban [Eliquis] 5 mg PO BID #60 tab 05/23/20 03/25/24 Rx Dapagliflozin Propanediol [Farxiga] 5 mg PO DAILY 03/25/24 03/25/24 History Insulin Aspart [NovoLOG Flexpen] See Protocol SQ AC-TID 03/25/24 03/25/24 History Losartan [Cozaar] 50 mg PO DAILY 03/25/24 03/25/24 History carvediloL [Coreg] 25 mg PO BID 03/25/24 03/25/24 History hydrALAZINE HCL [Apresoline] 50 mg PO TID 03/25/24 03/25/24 History Allergies Allergy/AdvReac Type Severity Reaction Status Date / Time No Known Allergies Allergy Verified 03/24/24 22:04 Physical Exam Vitals: Vital Signs Temp Pulse Pulse Resp BP BP Pulse Ox 03/25/24 10:00 62 13 166/89 96 03/25/24 09:00 62 26 H 165/91 97 03/25/24 08:28 97.9 F 59 L 24 165/91 98 03/25/24 08:04 97.9 F 71 25 H 165/91 97 03/25/24 07:12 63 16 162/85 98 03/25/24 06:35 52 L 18 168/90 95 03/25/24 05:20 65 18 170/88 97 03/25/24 04:14 66 16 161/97 96 03/25/24 02:51 61 16 173/91 96 03/25/24 01:45 61 16 140/73 96 03/25/24 00:25 70 18 164/76 97 03/24/24 22:54 78 18 192/116 94 L 03/24/24 22:45 92 18 187/106 91 L 03/24/24 22:04 97.4 F L 85 16 212/87 96 Intake and Output 03/24/24 03/25/24 03/25/24 22:59 06:59 14:59 Intake Total 25.922 450 Output Total 450 165 Balance -424.078 285 Intake: IV 450 Sodium Chloride 0.9% 1, 450 000 ml @ 150 mls/hr IV . [id number] [facility] Rx#:[id number] Intake, IV Titration 25.922 Amount Insulin Regular 100 unit 25.922 In Sodium Chloride 0.9% 100 ml @ 0.1 UNITS/KG/HR 8.017 mls/hr IV .[id number] [facility] Rx#:[id number] Output: Urine 450 165 Other: Voiding Method Indwelling Catheter Weight 79.379 kg 79.379 kg Results CBC & Chem 7: 03/24/24 22:16 03/25/24 04:50 Labs: Abnormal Lab Results - Last 24 Hours (Table) 03/24/24 03/24/24 03/24/24 Range/Units 22:16 22:16 22:16 WBC 13.8 H (3.8-10.6) k/uL RBC 3.91 L (4.30-5.90) m/uL Hgb 12.9 L (13.0-17.5) gm/dL MCV 114.6 H D (80.0-100.0) fL MCHC 28.7 L (31.0-37.0) g/dL Neutrophils # 13.0 H (1.3-7.7) k/uL Lymphocytes # 0.4 L (1.0-4.8) k/uL Macrocytosis Marked A VBG pH (7.31-7.41) VBG pCO2 (37-51) mmHg VBG HCO3 (24-28) mmol/L Sodium 123 L (137-145) mmol/L Chloride 95 L (98-107) mmol/L Carbon Dioxide 14 L (22-30) mmol/L BUN 41 H (9-20) mg/dL Creatinine 2.65 H (0.66-1.25) mg/dL Glucose 1551 H* (74-99) mg/dL POC Glucose (mg/dL) >600 H* (70-110) mg/dL Plasma Lactic Acid [place] (0.7-2.0) mmol/L Phosphorus 4.7 H (2.5-4.5) mg/dL Alkaline Phosphatase 171 H (38-126) U/L Troponin I (0.000-0.034) ng/mL Total Protein 6.1 L (6.3-8.2) g/dL Albumin 3.2 L (3.5-5.0) g/dL Urine Protein (Negative) Urine Glucose (UA) (Negative) Urine Blood (Negative) Ur Leukocyte Esterase (Negative) Urine RBC (0-5) /hpf Urine WBC (0-5) /hpf Amorphous Sediment (None) /hpf Hyaline Casts (0-2) /lpf Urine Mucus (None) /hpf 03/24/24 03/24/24 03/25/24 Range/Units 22:16 22:16 01:29 WBC (3.8-10.6) k/uL RBC (4.30-5.90) m/uL Hgb (13.0-17.5) gm/dL MCV (80.0-100.0) fL MCHC (31.0-37.0) g/dL Neutrophils # (1.3-7.7) k/uL Lymphocytes # (1.0-4.8) k/uL Macrocytosis VBG pH (7.31-7.41) VBG pCO2 (37-51) mmHg VBG HCO3 (24-28) mmol/L Sodium (137-145) mmol/L Chloride (98-107) mmol/L Carbon Dioxide (22-30) mmol/L BUN (9-20) mg/dL Creatinine (0.66-1.25) mg/dL Glucose (74-99) mg/dL POC Glucose (mg/dL) >600 H* (70-110) mg/dL Plasma Lactic Acid [place] 3.2 H* (0.7-2.0) mmol/L Phosphorus (2.5-4.5) mg/dL Alkaline Phosphatase (38-126) U/L Troponin I 0.074 H* (0.000-0.034) ng/mL Total Protein (6.3-8.2) g/dL Albumin (3.5-5.0) g/dL Urine Protein (Negative) Urine Glucose (UA) (Negative) Urine Blood (Negative) Ur Leukocyte Esterase (Negative) Urine RBC (0-5) /hpf Urine WBC (0-5) /hpf Amorphous Sediment (None) /hpf Hyaline Casts (0-2) /lpf Urine Mucus (None) /hpf 03/25/24 03/25/24 03/25/24 Range/Units 01:34 01:34 01:34 WBC (3.8-10.6) k/uL RBC (4.30-5.90) m/uL Hgb (13.0-17.5) gm/dL MCV (80.0-100.0) fL MCHC (31.0-37.0) g/dL Neutrophils # (1.3-7.7) k/uL Lymphocytes # (1.0-4.8) k/uL Macrocytosis VBG pH 7.20 L* (7.31-7.41) VBG pCO2 33 L (37-51) mmHg VBG HCO3 13 L (24-28) mmol/L Sodium (137-145) mmol/L Chloride (98-107) mmol/L Carbon Dioxide (22-30) mmol/L BUN (9-20) mg/dL Creatinine (0.66-1.25) mg/dL Glucose (74-99) mg/dL POC Glucose (mg/dL) (70-110) mg/dL Plasma Lactic Acid [place] 3.0 H* (0.7-2.0) mmol/L Phosphorus (2.5-4.5) mg/dL Alkaline Phosphatase (38-126) U/L Troponin I (0.000-0.034) ng/mL Total Protein (6.3-8.2) g/dL Albumin (3.5-5.0) g/dL Urine Protein 1+ H (Negative) Urine Glucose (UA) 4+ H (Negative) Urine Blood Large H (Negative) Ur Leukocyte Esterase Small H (Negative) Urine RBC 27 H (0-5) /hpf Urine WBC 162 H (0-5) /hpf Amorphous Sediment Occasional H (None) /hpf Hyaline Casts 6 H (0-2) /lpf Urine Mucus Rare H (None) /hpf 03/25/24 03/25/24 03/25/24 Range/Units 01:34 04:06 04:50 WBC (3.8-10.6) k/uL RBC (4.30-5.90) m/uL Hgb (13.0-17.5) gm/dL MCV (80.0-100.0) fL MCHC (31.0-37.0) g/dL Neutrophils # (1.3-7.7) k/uL Lymphocytes # (1.0-4.8) k/uL Macrocytosis VBG pH (7.31-7.41) VBG pCO2 (37-51) mmHg VBG HCO3 (24-28) mmol/L Sodium 129 L 131 L (137-145) mmol/L Chloride 109 H 112 H (98-107) mmol/L Carbon Dioxide 10 L 12 L (22-30) mmol/L BUN 39 H 39 H (9-20) mg/dL Creatinine 2.62 H 2.56 H (0.66-1.25) mg/dL Glucose 1165 H* 773 H* (74-99) mg/dL POC Glucose (mg/dL) >600 H* (70-110) mg/dL Plasma Lactic Acid [place] (0.7-2.0) mmol/L Phosphorus (2.5-4.5) mg/dL Alkaline Phosphatase (38-126) U/L Troponin I (0.000-0.034) ng/mL Total Protein (6.3-8.2) g/dL Albumin (3.5-5.0) g/dL Urine Protein (Negative) Urine Glucose (UA) (Negative) Urine Blood (Negative) Ur Leukocyte Esterase (Negative) Urine RBC (0-5) /hpf Urine WBC (0-5) /hpf Amorphous Sediment (None) /hpf Hyaline Casts (0-2) /lpf Urine Mucus (None) /hpf 03/25/24 03/25/24 03/25/24 Range/Units 05:06 05:12 06:18 WBC (3.8-10.6) k/uL RBC (4.30-5.90) m/uL Hgb (13.0-17.5) gm/dL MCV (80.0-100.0) fL MCHC (31.0-37.0) g/dL Neutrophils # (1.3-7.7) k/uL Lymphocytes # (1.0-4.8) k/uL Macrocytosis VBG pH (7.31-7.41) VBG pCO2 (37-51) mmHg VBG HCO3 (24-28) mmol/L Sodium (137-145) mmol/L Chloride (98-107) mmol/L Carbon Dioxide (22-30) mmol/L BUN (9-20) mg/dL Creatinine (0.66-1.25) mg/dL Glucose (74-99) mg/dL POC Glucose (mg/dL) >600 H* 495 H (70-110) mg/dL Plasma Lactic Acid [place] 2.1 H* (0.7-2.0) mmol/L Phosphorus (2.5-4.5) mg/dL Alkaline Phosphatase (38-126) U/L Troponin I (0.000-0.034) ng/mL Total Protein (6.3-8.2) g/dL Albumin (3.5-5.0) g/dL Urine Protein (Negative) Urine Glucose (UA) (Negative) Urine Blood (Negative) Ur Leukocyte Esterase (Negative) Urine RBC (0-5) /hpf Urine WBC (0-5) /hpf Amorphous Sediment (None) /hpf Hyaline Casts (0-2) /lpf Urine Mucus (None) /hpf 03/25/24 03/25/24 03/25/24 Range/Units 07:04 08:06 09:06 WBC (3.8-10.6) k/uL RBC (4.30-5.90) m/uL Hgb (13.0-17.5) gm/dL MCV (80.0-100.0) fL MCHC (31.0-37.0) g/dL Neutrophils # (1.3-7.7) k/uL Lymphocytes # (1.0-4.8) k/uL Macrocytosis VBG pH (7.31-7.41) VBG pCO2 (37-51) mmHg VBG HCO3 (24-28) mmol/L Sodium (137-145) mmol/L Chloride (98-107) mmol/L Carbon Dioxide (22-30) mmol/L BUN (9-20) mg/dL Creatinine (0.66-1.25) mg/dL Glucose (74-99) mg/dL POC Glucose (mg/dL) 456 H 384 H 295 H (70-110) mg/dL Plasma Lactic Acid [place] (0.7-2.0) mmol/L Phosphorus (2.5-4.5) mg/dL Alkaline Phosphatase (38-126) U/L Troponin I (0.000-0.034) ng/mL Total Protein (6.3-8.2) g/dL Albumin (3.5-5.0) g/dL Urine Protein (Negative) Urine Glucose (UA) (Negative) Urine Blood (Negative) Ur Leukocyte Esterase (Negative) Urine RBC (0-5) /hpf Urine WBC (0-5) /hpf Amorphous Sediment (None) /hpf Hyaline Casts (0-2) /lpf Urine Mucus (None) /hpf 03/25/24 Range/Units 10:19 WBC (3.8-10.6) k/uL RBC (4.30-5.90) m/uL Hgb (13.0-17.5) gm/dL MCV (80.0-100.0) fL MCHC (31.0-37.0) g/dL Neutrophils # (1.3-7.7) k/uL Lymphocytes # (1.0-4.8) k/uL Macrocytosis VBG pH (7.31-7.41) VBG pCO2 (37-51) mmHg VBG HCO3 (24-28) mmol/L Sodium (137-145) mmol/L Chloride (98-107) mmol/L Carbon Dioxide (22-30) mmol/L BUN (9-20) mg/dL Creatinine (0.66-1.25) mg/dL Glucose (74-99) mg/dL POC Glucose (mg/dL) 225 H (70-110) mg/dL Plasma Lactic Acid [place] (0.7-2.0) mmol/L Phosphorus (2.5-4.5) mg/dL Alkaline Phosphatase (38-126) U/L Troponin I (0.000-0.034) ng/mL Total Protein (6.3-8.2) g/dL Albumin (3.5-5.0) g/dL Urine Protein (Negative) Urine Glucose (UA) (Negative) Urine Blood (Negative) Ur Leukocyte Esterase (Negative) Urine RBC (0-5) /hpf Urine WBC (0-5) /hpf Amorphous Sediment (None) /hpf Hyaline Casts (0-2) /lpf Urine Mucus (None) /hpf Thrombosis Risk Factor Assmnt - Choose All That Apply Each Factor Represents 1 point: Obesity (BMI >25) Other Risk Factors: Yes Each Risk Factor Represents 3 Points: Age 75 years or older Thrombosis Risk Factor Assessment Total Risk Factor Score: 4 Thrombosis Risk Factor Assessment Level: Moderate Risk
[2024-03-25 16:18] LABS: Glucose,Whole Blood 280 mg/dL (70-110)
[2024-03-25] MEDS: INSULIN ASPART (NovoLOG) 100 UNIT/ML VIAL SQ SCH (16:24)
[2024-03-25] MEDS: hydrALAZINE HCL 50 MG TAB PO SCH (16:24)
[2024-03-25 19:56] LABS: Glucose,Whole Blood 272 mg/dL (70-110)
[2024-03-25] MEDS: ATORVASTATIN 80 MG TAB PO SCH (20:30)
[2024-03-25] MEDS: TAMSULOSIN 0.4 MG CAP.ER.24H PO SCH (20:31)
[2024-03-26 05:19] LABS: Basophils % (A) 0 %; Eosinophils # (A) 0.2 k/uL (0-0.7); Eosinophils % (A) 1 %; HCT 32.5 % (39.0-53.0); Lymphocytes % (A) 7 %; MCH 33.1 pg (25.0-35.0); MCHC 33.8 g/dL (31.0-37.0); Mean Platelet Volume 7.5; Monocytes # (A) 0.3 k/uL (0-1.0); Monocytes % (A) 2 %; Neutrophils # (A) 12.5 k/uL (1.3-7.7); Neutrophils % (A) 88 %; Platelet Count 256 k/uL (150-450); RBC 3.31 m/uL (4.30-5.90); RDW 13.2 % (11.5-15.5); WBC 14.2 k/uL (3.8-10.6)
[2024-03-26 05:24] LABS: MCV 98.2 fL (80.0-100.0)
[2024-03-26 05:30] LABS: ALT 28 U/L (4-49); AST 24 U/L (17-59); African American GFR (CKD) 31 (>60 ml/min/1.73 sqM); Albumin 2.3 g/dL (3.5-5.0); Alkaline Phosphatase 80 U/L (38-126); Anion Gap 3 mmol/L; Blood Urea Nitrogen 30 mg/dL (9-20); Calcium 9.5 mg/dL (8.4-10.2); Carbon Dioxide 16 mmol/L (22-30); Chloride 119 mmol/L (98-107); Glucose 109 mg/dL (74-99); Non-African American GFR(CKD) 26 (>60 ml/min/1.73 sqM); Phosphorus 2.5 mg/dL (2.5-4.5); Potassium 3.8 mmol/L (3.5-5.1); Sodium 138 mmol/L (137-145); Total Bilirubin 0.5 mg/dL (0.2-1.3)
[2024-03-26 06:24] LABS: Glucose,Whole Blood 89 mg/dL (70-110)
[2024-03-26] MEDS: LOSARTAN 50 MG TAB PO SCH (08:38)
[2024-03-26] MEDS: CLOPIDOGREL 75 MG TAB PO SCH (08:38)
[2024-03-26 08:39] LABS: Glucose,Whole Blood 109 mg/dL (70-110)
[2024-03-26] MEDS: SODIUM BICARB 8.4% 50 ML SYR (1 MEQ/ML) IV STA (08:39)
[2024-03-26] MEDS ORDERED: DAPAGLIFLOZIN PROPANEDIOL 5 MG TABLET PO SCH (09:00)
--- NOTE | 2024-03-26 09:03 | P.PN ---
Subjective Patient is seen in follow-up for acute kidney injury on chronic kidney disease. Renal function little better. Receiving IV fluids. Denies chest pain or shortness of breath. Nonoliguric. Vital signs are stable. General: No acute distress. HEENT: Head exam is unremarkable. LUNGS: No audible rhonchi or wheezes. HEART: Rate and Rhythm are regular. ABDOMEN: Nontender. EXTREMITITES: No edema. Objective - Vital Signs Vital signs: Vital Signs Temp 98.2 F 03/26/24 02:00 Pulse 62 03/26/24 02:00 Resp 23 03/26/24 02:00 BP 142/104 03/26/24 02:00 Pulse Ox 97 03/26/24 02:00 FiO2 Intake & Output 03/25/24 03/26/24 03/26/24 18:59 06:59 18:59 Intake Total 2778.224 825 150 Output Total 460 475 75 Balance 2318.224 350 75 Weight 79.379 kg Intake: IV 1575 825 150 Sodium Chloride 0.9% 1, 1575 825 150 000 ml @ 75 mls/hr IV . [id number] [facility] Rx#:[id number] Intake, IV Titration 23.224 Amount Insulin Regular 100 unit 23.224 In Sodium Chloride 0.9% 100 ml @ 0.1 UNITS/KG/HR 8.017 mls/hr IV .[id number] [facility] Rx#:[id number] Oral 1180 Output: Urine 460 475 75 Other: Voiding Method Indwelling Catheter Indwelling Catheter - Labs CBC & Chem 7: 03/26/24 04:30 03/26/24 04:30 Labs: Abnormal Lab Results - Last 24 Hours (Table) 03/25/24 03/25/24 03/25/24 Range/Units 09:06 10:19 11:05 WBC (3.8-10.6) k/uL RBC (4.30-5.90) m/uL Hgb (13.0-17.5) gm/dL Hct (39.0-53.0) % Neutrophils # (1.3-7.7) k/uL Chloride (98-107) mmol/L Carbon Dioxide (22-30) mmol/L BUN (9-20) mg/dL Creatinine (0.66-1.25) mg/dL Glucose (74-99) mg/dL POC Glucose (mg/dL) 295 H 225 H 168 H (70-110) mg/dL Hemoglobin A1c (<=6.0) % Total Protein (6.3-8.2) g/dL Albumin (3.5-5.0) g/dL 03/25/24 03/25/24 03/25/24 Range/Units 12:12 13:04 16:17 WBC (3.8-10.6) k/uL RBC (4.30-5.90) m/uL Hgb (13.0-17.5) gm/dL Hct (39.0-53.0) % Neutrophils # (1.3-7.7) k/uL Chloride (98-107) mmol/L Carbon Dioxide (22-30) mmol/L BUN (9-20) mg/dL Creatinine (0.66-1.25) mg/dL Glucose (74-99) mg/dL POC Glucose (mg/dL) 179 H 207 H 280 H (70-110) mg/dL Hemoglobin A1c (<=6.0) % Total Protein (6.3-8.2) g/dL Albumin (3.5-5.0) g/dL 03/25/24 03/26/24 03/26/24 Range/Units 19:55 04:30 04:30 WBC 14.2 H (3.8-10.6) k/uL RBC 3.31 L (4.30-5.90) m/uL Hgb 11.0 L (13.0-17.5) gm/dL Hct 32.5 L (39.0-53.0) % Neutrophils # 12.5 H (1.3-7.7) k/uL Chloride (98-107) mmol/L Carbon Dioxide (22-30) mmol/L BUN (9-20) mg/dL Creatinine (0.66-1.25) mg/dL Glucose (74-99) mg/dL POC Glucose (mg/dL) 272 H (70-110) mg/dL Hemoglobin A1c 9.1 H (<=6.0) % Total Protein (6.3-8.2) g/dL Albumin (3.5-5.0) g/dL 03/26/24 Range/Units 04:30 WBC (3.8-10.6) k/uL RBC (4.30-5.90) m/uL Hgb (13.0-17.5) gm/dL Hct (39.0-53.0) % Neutrophils # (1.3-7.7) k/uL Chloride 119 H (98-107) mmol/L Carbon Dioxide 16 L (22-30) mmol/L BUN 30 H (9-20) mg/dL Creatinine 2.32 H (0.66-1.25) mg/dL Glucose 109 H (74-99) mg/dL POC Glucose (mg/dL) (70-110) mg/dL Hemoglobin A1c (<=6.0) % Total Protein 5.0 L (6.3-8.2) g/dL Albumin 2.3 L (3.5-5.0) g/dL Assessment and Plan Plan: Assessment: 1. Acute kidney injury secondary to ATN secondary to hypovolemia. Creatinine 2.65 on admission and is 2.32 today. 2. 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 3. HHNK status post insulin drip. 4. Status post left nephrectomy. 5. Diabetes mellitus. 6. Coronary disease status post CABG. 7. Metabolic acidosis secondary to IV fluids. Anion gap 3. 8. Hypotonic hyponatremia secondary to hyperglycemia. Resolved. Plan: Maintain IV fluids. 2 amps sodium bicarb IV push today. Hold Farxiga. Avoid nephrotoxins. Continue to monitor renal function and urine output.
[2024-03-26 12:06] LABS: Glucose,Whole Blood 192 mg/dL (70-110)
--- NOTE | 2024-03-26 12:14 | P.PN ---
Subjective Progress Note Date: 03/26/24 Principal diagnosis: Hyperosmolar nonketotic coma. Is a 78-year-old white male with multiple medical problems including coronary artery disease, CABG x 3 in 2008, type 2 diabetes, hypertension, dyslipidemia, history of kidney cancer and previous left nephrectomy. Patient was brought into the ER yesterday with altered mental status, and supposedly weakness and dizziness. His blood sugar was over 1500. Patient was admitted with hyperglycemic, hyperosmolar state. Patient received fluid boluses in the ER, remains on IV fluid 0.9 normal saline at 130 cc/h. Patient is on insulin at 40 units/h. His blood sugars have come down nicely his last blood sugar this morning was 384. Patient is noted to clinically improve, his mental status has cleared significantly since admission yesterday. Labs this morning showed sodium of 131 potassium 5.1 chloride 112 bicarb is 12 BUN is 39 creatinine 2.56. Initial creatinine on admission was 2.65. Baseline creatinine is 2.13 from few weeks ago, in 2020 his baseline creatinine was 1.41. Urinalysis showed negative ketones. Progress note dated March 26, 2024. 78-year-old male seen in consultation yesterday. Please see the note above. The patient has a history of type 2 diabetes. He also has a history of hypertension, hyperlipidemia, chronic kidney disease, coronary disease, previous bypass grafting. The patient was admitted on March 24. Currently he is on room air. He is getting saline at 75 cc an hour. Current labs include a white count 14.2, hemoglobin 11, hematocrit 32.5, and a platelet count 256,000. Sodium 138, potassium 3.8, chlorides 119, CO2 16, BUN 30, creatinine 2.32. Glucose is 192. Albumin is 2.3. Objective - Vital Signs Vital signs: Vital Signs Temp 97.9 F 03/26/24 08:00 Pulse 58 L 03/26/24 08:00 Resp 26 H 03/26/24 08:00 BP 154/83 03/26/24 08:00 Pulse Ox 96 03/26/24 08:00 FiO2 Intake & Output 03/25/24 03/26/24 03/26/24 18:59 06:59 18:59 Intake Total 2778.224 825 390 Output Total 460 475 75 Balance 2318.224 350 315 Weight 79.379 kg Intake: IV 1575 825 150 Sodium Chloride 0.9% 1, 1575 825 150 000 ml @ 75 mls/hr IV . [id number] [facility] Rx#:[id number] Intake, IV Titration 23.224 Amount Insulin Regular 100 unit 23.224 In Sodium Chloride 0.9% 100 ml @ 0.1 UNITS/KG/HR 8.017 mls/hr IV .[id number] [facility] Rx#:[id number] Oral 1180 240 Output: Urine 460 475 75 Other: Voiding Method Indwelling Catheter Indwelling Catheter Indwelling Catheter - Exam No acute distress, oriented 3. Currently on room air. No respiratory distress. HEENT examination is grossly unremarkable. Mucous membranes are moist. No oral lesions. Neck supple. Full range of motion. No adenopathy thyromegaly or neck vein distention. Cardiovascular examination reveals regular rhythm rate. S1-S2 normal. No S3 or S4. No discernible murmur noted. Lungs reveal clear breath sounds. Breath sounds are equal bilaterally. No adventitious lung sounds including wheezes rhonchi or crackles. Abdomen soft bowel sounds are heard. No masses or tenderness. Extremities are intact. No cyanosis clubbing or edema. Skin is without rash or lesion. Neurologic examination is brief but nonfocal. - Labs CBC & Chem 7: 03/26/24 04:30 03/26/24 04:30 Labs: Abnormal Lab Results - Last 24 Hours (Table) 03/25/24 03/25/24 03/25/24 Range/Units 12:12 13:04 16:17 WBC (3.8-10.6) k/uL RBC (4.30-5.90) m/uL Hgb (13.0-17.5) gm/dL Hct (39.0-53.0) % Neutrophils # (1.3-7.7) k/uL Chloride (98-107) mmol/L Carbon Dioxide (22-30) mmol/L BUN (9-20) mg/dL Creatinine (0.66-1.25) mg/dL Glucose (74-99) mg/dL POC Glucose (mg/dL) 179 H 207 H 280 H (70-110) mg/dL Hemoglobin A1c (<=6.0) % Total Protein (6.3-8.2) g/dL Albumin (3.5-5.0) g/dL 03/25/24 03/26/24 03/26/24 Range/Units 19:55 04:30 04:30 WBC 14.2 H (3.8-10.6) k/uL RBC 3.31 L (4.30-5.90) m/uL Hgb 11.0 L (13.0-17.5) gm/dL Hct 32.5 L (39.0-53.0) % Neutrophils # 12.5 H (1.3-7.7) k/uL Chloride (98-107) mmol/L Carbon Dioxide (22-30) mmol/L BUN (9-20) mg/dL Creatinine (0.66-1.25) mg/dL Glucose (74-99) mg/dL POC Glucose (mg/dL) 272 H (70-110) mg/dL Hemoglobin A1c 9.1 H (<=6.0) % Total Protein (6.3-8.2) g/dL Albumin (3.5-5.0) g/dL 03/26/24 03/26/24 Range/Units 04:30 12:05 WBC (3.8-10.6) k/uL RBC (4.30-5.90) m/uL Hgb (13.0-17.5) gm/dL Hct (39.0-53.0) % Neutrophils # (1.3-7.7) k/uL Chloride 119 H (98-107) mmol/L Carbon Dioxide 16 L (22-30) mmol/L BUN 30 H (9-20) mg/dL Creatinine 2.32 H (0.66-1.25) mg/dL Glucose 109 H (74-99) mg/dL POC Glucose (mg/dL) 192 H (70-110) mg/dL Hemoglobin A1c (<=6.0) % Total Protein 5.0 L (6.3-8.2) g/dL Albumin 2.3 L (3.5-5.0) g/dL Assessment and Plan Assessment: Acute hyperosmolar nonketotic coma. Dehydration, secondary to the above. Acute on chronic kidney injury secondary to dehydration. Diabetes, type II. Chronic atrial fibrillation. History of CAD, with previous CABG, 2008. Left nephrectomy, secondary to renal cell carcinoma. History of hypertension. History of hyperlipidemia. History of GERD. Plan: Plan dated March 26, 2024. The patient is feeling much better. He is on room air. He is getting saline at 75 cc an hour. The patient has multiple medical problems including coronary disease, with previous bypass grafting, type 2 diabetes, hypertension, hyperlipidemia, and chronic kidney disease. In addition, the patient has a history of chronic atrial fibrillation. The patient is stable to be transferred to the general medical floor with telemetry. We will continue to follow. Prognosis is guarded. No additional recommendations are made. Labs, x-rays, and all medications are reviewed. Time with Patient: Less than 30
--- NOTE | 2024-03-26 12:33 | P.PN ---
Subjective Progress Note Date: 03/26/24 patient 78-year-old gentleman with past medical history significant for diabetes mellitus, hypertension who presented to ER because of altered mental status. Patient history is limited because of his confusion. According to the EMR family noted the patient has been increasingly weak for the last week. Patient has been unable to get out of the bed. There was no complaint of fever or chills. There was no report of any chest pain or shortness of breath. There was no complaint of any recent fall or head trauma. Initial lab work done in the ER showed WBC 13.8, hemoglobin 12.9, platelet count 265, sodium 123, potassium 4.9, BUN 41, creatinine 2.65, glucose 1551, lactate 3.2 phosphorus 4.7, troponin 0.074 UA done showed urine WBC 162, urine leukocyte esterase small amount EKG done in the ER showed heart rate of93, irregular rhythm, no ST segment elevation or depression seen, no T-wave inversions seen. CT head done showed no acute intracranial process CT cervical spine negative for acute cervical spine fracture or subluxation Patient admitted to internal medicine service patient 78-year-old gentleman with past medical history significant for diabetes mellitus, hypertension who presented to ER because of altered mental status. Patient history is limited because of his confusion. According to the EMR family noted the patient has been increasingly weak for the last week. Patient has been unable to get out of the bed. There was no complaint of fever or chills. There was no report of any chest pain or shortness of breath. There was no complaint of any recent fall or head trauma. Initial lab work done in the ER showed WBC 13.8, hemoglobin 12.9, platelet count 265, sodium 123, potassium 4.9, BUN 41, creatinine 2.65, glucose 1551, lactate 3.2 phosphorus 4.7, troponin 0.074 UA done showed urine WBC 162, urine leukocyte esterase small amount EKG done in the ER showed heart rate of93, irregular rhythm, no ST segment elevation or depression seen, no T-wave inversions seen. CT head done showed no acute intracranial process CT cervical spine negative for acute cervical spine fracture or subluxation Patient admitted to internal medicine service 03/26. Patient seen and examined. States he is doing much better. Tolerating diet. REVIEW OF SYSTEMS: CONSTITUTIONAL: No fever, no malaise,. CARDIOVASCULAR: No chest pain, no palpitations, no syncope. PULMONARY: No shortness of breath, no cough, GASTROINTESTINAL: No diarrhea, no nausea, no vomiting, no abdominal pain. NEUROLOGICAL: No headaches, no weakness, PHYSICAL EXAMINATION: GENERAL: The patient is alert and oriented x3, not in any acute distress. Well developed, well nourished. HEENT: Pupils are round and equally reacting to light. EOMI. No scleral icterus. No conjunctival pallor. Normocephalic, atraumatic. No pharyngeal erythema. No thyromegaly. CARDIOVASCULAR: S1 and S2 present. No murmurs, rubs, or gallops. PULMONARY: Chest is clear to auscultation, no wheezing or crackles. ABDOMEN: Soft, nontender, nondistended, normoactive bowel sounds. No palpable organomegaly. MUSCULOSKELETAL: No joint swelling or deformity. EXTREMITIES: No cyanosis, clubbing, or pedal edema. NEUROLOGICAL: Gross neurological examination did not reveal any focal deficits. SKIN: No rashes. Assessment and plan Hyperglycemic hyperosmolar state Acute metabolic encephalopathy Dehydration Pseudohyponatremia Acute on chronic kidney disease Chronic atrial fibrillation Lactic acidosis Insulin-dependent diabetes mellitus Hypertension History of coronary disease status post CABG Hyperlipidemia History of kidney cancer Monitor vital signs Monitor CBC Monitor CMP Continue telemetry monitoring Encourage use of incentive spirometer Monitor blood sugar level Continue IV fluids Give sodium bicarb Continue Levemir 20 minutes twice a day Nephrology following ICU following Labs and medication were reviewed.. Continue same treatment. Continue with symptomatic treatment. Resume home medication. Monitor labs and vitals. DVT and GI prophylaxis. Further recommendations as per clinical course of the patient Dictation was produced using [employer] dictation software. please excuse any grammatical, word or spelling errors. Objective - Vital Signs Vital signs: Vital Signs Temp 98.2 F 03/26/24 02:00 Pulse 62 03/26/24 02:00 Resp 23 03/26/24 02:00 BP 142/104 03/26/24 02:00 Pulse Ox 97 03/26/24 02:00 FiO2 Intake & Output 03/25/24 03/26/24 03/26/24 18:59 06:59 18:59 Intake Total 2778.224 825 150 Output Total 460 475 75 Balance 2318.224 350 75 Weight 79.379 kg Intake: IV 1575 825 150 Sodium Chloride 0.9% 1, 1575 825 150 000 ml @ 75 mls/hr IV . [id number] [facility] Rx#:[id number] Intake, IV Titration 23.224 Amount Insulin Regular 100 unit 23.224 In Sodium Chloride 0.9% 100 ml @ 0.1 UNITS/KG/HR 8.017 mls/hr IV .[id number] [facility] Rx#:[id number] Oral 1180 Output: Urine 460 475 75 Other: Voiding Method Indwelling Catheter Indwelling Catheter - Labs CBC & Chem 7: 03/26/24 04:30 03/26/24 04:30 Labs: Abnormal Lab Results - Last 24 Hours (Table) 03/25/24 03/25/24 03/25/24 Range/Units 09:06 10:19 11:05 WBC (3.8-10.6) k/uL RBC (4.30-5.90) m/uL Hgb (13.0-17.5) gm/dL Hct (39.0-53.0) % Neutrophils # (1.3-7.7) k/uL Chloride (98-107) mmol/L Carbon Dioxide (22-30) mmol/L BUN (9-20) mg/dL Creatinine (0.66-1.25) mg/dL Glucose (74-99) mg/dL POC Glucose (mg/dL) 295 H 225 H 168 H (70-110) mg/dL Hemoglobin A1c (<=6.0) % Total Protein (6.3-8.2) g/dL Albumin (3.5-5.0) g/dL 03/25/24 03/25/24 03/25/24 Range/Units 12:12 13:04 16:17 WBC (3.8-10.6) k/uL RBC (4.30-5.90) m/uL Hgb (13.0-17.5) gm/dL Hct (39.0-53.0) % Neutrophils # (1.3-7.7) k/uL Chloride (98-107) mmol/L Carbon Dioxide (22-30) mmol/L BUN (9-20) mg/dL Creatinine (0.66-1.25) mg/dL Glucose (74-99) mg/dL POC Glucose (mg/dL) 179 H 207 H 280 H (70-110) mg/dL Hemoglobin A1c (<=6.0) % Total Protein (6.3-8.2) g/dL Albumin (3.5-5.0) g/dL 03/25/24 03/26/24 03/26/24 Range/Units 19:55 04:30 04:30 WBC 14.2 H (3.8-10.6) k/uL RBC 3.31 L (4.30-5.90) m/uL Hgb 11.0 L (13.0-17.5) gm/dL Hct 32.5 L (39.0-53.0) % Neutrophils # 12.5 H (1.3-7.7) k/uL Chloride (98-107) mmol/L Carbon Dioxide (22-30) mmol/L BUN (9-20) mg/dL Creatinine (0.66-1.25) mg/dL Glucose (74-99) mg/dL POC Glucose (mg/dL) 272 H (70-110) mg/dL Hemoglobin A1c 9.1 H (<=6.0) % Total Protein (6.3-8.2) g/dL Albumin (3.5-5.0) g/dL 03/26/24 Range/Units 04:30 WBC (3.8-10.6) k/uL RBC (4.30-5.90) m/uL Hgb (13.0-17.5) gm/dL Hct (39.0-53.0) % Neutrophils # (1.3-7.7) k/uL Chloride 119 H (98-107) mmol/L Carbon Dioxide 16 L (22-30) mmol/L BUN 30 H (9-20) mg/dL Creatinine 2.32 H (0.66-1.25) mg/dL Glucose 109 H (74-99) mg/dL POC Glucose (mg/dL) (70-110) mg/dL Hemoglobin A1c (<=6.0) % Total Protein 5.0 L (6.3-8.2) g/dL Albumin 2.3 L (3.5-5.0) g/dL
[2024-03-26 16:35] LABS: Glucose,Whole Blood 204 mg/dL (70-110)
[2024-03-26 20:54] LABS: Glucose,Whole Blood 254 mg/dL (70-110)
[2024-03-27 06:34] LABS: Glucose,Whole Blood 63 mg/dL (70-110)
[2024-03-27] MEDS: PANTOPRAZOLE 40 MG TABLET PO SCH (06:37)
[2024-03-27 07:15] LABS: Glucose,Whole Blood 103 mg/dL (70-110)
[2024-03-27 09:01] LABS: ALT 43 U/L (10-49); AST 34 U/L (14-35); Albumin 2.5 g/dL (3.8-4.9); Albumin/Globulin Ratio 1.19 Ratio (1.60-3.17); Alkaline Phosphatase 82 U/L (41-126); BUN/Creat Ratio 12.95 Ratio (12.00-20.00); Blood Urea Nitrogen 24.6 mg/dL (9.0-27.0); Calcium 8.7 mg/dL (8.7-10.3); Chloride 115 mmol/L (96-109); Globulin 2.1 g/dL (1.6-3.3); Glucose 84 mg/dL (70-110); Potassium 3.6 mmol/L (3.5-5.5); Sodium 141 mmol/L (135-145); Total Bilirubin 0.3 mg/dL (0.3-1.2); Total Protein 4.6 g/dL (6.2-8.2)
[2024-03-27 10:11] LABS: Basophils # (A) 0.03 X 10*3/uL (0.00-0.10); Basophils % (A) 0.2 %; Eosinophils # (A) 0.19 X 10*3/uL (0.04-0.35); Eosinophils % (A) 1.5 %; HCT 30.2 % (39.6-50.0); HGB 10.1 g/dL (13.0-17.0); Lymphocytes # (A) 0.95 X 10*3/uL (0.90-5.00); Lymphocytes % (A) 7.4 %; MCH 32.3 pg (27.0-32.0); MCHC 33.4 g/dL (32.0-37.0); MCV 96.5 FL (80.0-97.0); Mean Platelet Volume 10.1 FL (9.5-12.2); Monocytes # (A) 0.53 X 10*3/uL (0.20-1.00); Monocytes % (A) 4.1 %; NRBC Per 100 WBC 0 X 10*3/uL (0.00-0.01); Neutrophils # (A) 10.97 X 10*3/uL (1.80-7.70); Neutrophils % (A) 85.6 %; Platelet Count 235 X 10*3/uL (140-440); RBC 3.13 X 10*6/uL (4.40-5.60); RDW 13.4 % (11.5-14.5); WBC 12.83 X 10*3/uL (4.50-10.00)
--- NOTE | 2024-03-27 10:34 | P.PN ---
Subjective Patient is seen in follow-up for acute kidney injury on chronic kidney disease. Renal function better. Receiving IV fluids. Denies chest pain or shortness of breath. Nonoliguric. No active complaints. Vital signs are stable. General: No acute distress. HEENT: Head exam is unremarkable. LUNGS: No audible rhonchi or wheezes. HEART: Rate and Rhythm are regular. ABDOMEN: Nontender. EXTREMITITES: No edema. Objective - Vital Signs Vital signs: Vital Signs Temp 97.8 F 03/27/24 07:26 Pulse 68 03/27/24 07:26 Resp 17 03/27/24 07:26 BP 174/89 03/27/24 07:26 Pulse Ox 98 03/27/24 07:40 FiO2 Intake & Output 03/26/24 03/27/24 03/27/24 18:59 06:59 18:59 Intake Total 1230 Output Total 650 700 Balance 580 -700 Intake: IV 750 Sodium Chloride 0.9% 1, 750 000 ml @ 75 mls/hr IV . [id number] [facility] Rx#:[id number] Oral 480 Output: Urine 650 700 Uretheral (Villafuerte) 700 Other: Voiding Method Indwelling Catheter Indwelling Catheter Indwelling Catheter # Bowel Movements 1 - Labs CBC & Chem 7: 03/27/24 03:27 03/27/24 03:27 Labs: Abnormal Lab Results - Last 24 Hours (Table) 03/26/24 03/26/24 03/26/24 Range/Units 12:05 16:27 20:53 WBC (4.50-10.00) X 10*3/uL RBC (4.40-5.60) X 10*6/uL Hgb (13.0-17.0) g/dL Hct (39.6-50.0) % MCH (27.0-32.0) pg Immature Gran # (0.00-0.04) X 10*3/uL Neutrophils # (1.80-7.70) X 10*3/uL Chloride (96-109) mmol/L Carbon Dioxide (21.6-31.8) mmol/L Creatinine (0.6-1.5) mg/dL Est GFR (CKD-EPI) (>=60) POC Glucose (mg/dL) 192 H 204 H 254 H (70-110) mg/dL Total Protein (6.2-8.2) g/dL Albumin (3.8-4.9) g/dL Albumin/Globulin Ratio (1.60-3.17) Ratio 03/27/24 03/27/24 03/27/24 Range/Units 03:27 03:27 06:33 WBC 12.83 H (4.50-10.00) X 10*3/uL RBC 3.13 L (4.40-5.60) X 10*6/uL Hgb 10.1 L (13.0-17.0) g/dL Hct 30.2 L (39.6-50.0) % MCH 32.3 H (27.0-32.0) pg Immature Gran # 0.16 H (0.00-0.04) X 10*3/uL Neutrophils # 10.97 H (1.80-7.70) X 10*3/uL Chloride 115 H (96-109) mmol/L Carbon Dioxide 18.0 L (21.6-31.8) mmol/L Creatinine 1.9 H (0.6-1.5) mg/dL Est GFR (CKD-EPI) 36 L (>=60) POC Glucose (mg/dL) 63 L (70-110) mg/dL Total Protein 4.6 L (6.2-8.2) g/dL Albumin 2.5 L (3.8-4.9) g/dL Albumin/Globulin Ratio 1.19 L (1.60-3.17) Ratio Assessment and Plan Plan: Assessment: 1. Acute kidney injury secondary to ATN secondary to hypovolemia. Creatinine 2.65 on admission and is 1.9 today. 2. 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 3. HHNK status post insulin drip. 4. Status post left nephrectomy. 5. Diabetes mellitus. 6. Coronary disease status post CABG. 7. Metabolic acidosis secondary to IV fluids. Better. 8. Hypotonic hyponatremia secondary to hyperglycemia. Resolved. Plan: Hep-Lock IV fluids. Encouraged oral intake. Avoid nephrotoxins. Continue to monitor renal function and urine output. Increased dose of hydralazine. Add oral bicarb.
[2024-03-27 11:40] LABS: Glucose,Whole Blood 242 mg/dL (70-110)
[2024-03-27] MEDS: SODIUM BICARBONATE TAB 650 MG TAB PO SCH (12:28)
--- NOTE | 2024-03-27 12:58 | P.PN ---
Subjective Progress Note Date: 03/27/24 Is a 78-year-old white male with multiple medical problems including coronary artery disease, CABG x 3 in 2008, type 2 diabetes, hypertension, dyslipidemia, history of kidney cancer and previous left nephrectomy. Patient was brought into the ER yesterday with altered mental status, and supposedly weakness and dizziness. His blood sugar was over 1500. Patient was admitted with hyperglycemic, hyperosmolar state. Patient received fluid boluses in the ER, remains on IV fluid 0.9 normal saline at 130 cc/h. Patient is on insulin at 40 units/h. His blood sugars have come down nicely his last blood sugar this morning was 384. Patient is noted to clinically improve, his mental status has cleared significantly since admission yesterday. Labs this morning showed sodium of 131 potassium 5.1 chloride 112 bicarb is 12 BUN is 39 creatinine 2.56. Initial creatinine on admission was 2.65. Baseline creatinine is 2.13 from few weeks ago, in 2020 his baseline creatinine was 1.41. Urinalysis showed negative ketones. Progress note dated March 26, 2024. 78-year-old male seen in consultation yesterday. Please see the note above. The patient has a history of type 2 diabetes. He also has a history of hypertension, hyperlipidemia, chronic kidney disease, coronary disease, previous bypass grafting. The patient was admitted on March 24. Currently he is on room air. He is getting saline at 75 cc an hour. Current labs include a white count 14.2, hemoglobin 11, hematocrit 32.5, and a platelet count 256,000. Sodium 138, potassium 3.8, chlorides 119, CO2 16, BUN 30, creatinine 2.32. G lucose is 192. Albumin is 2.3. The patient is seen today March 27, 2024 in follow-up on the regular medical floor. He is currently resting comfortably in bed. Awake and alert in no acute distress. Denies any worsening shortness of breath, cough or congestion. He is maintaining good O2 saturations in the 90s on room air. He is receiving normal saline at 75 mL/h. White count 12.8. Hemoglobin 10.1. Platelets 235. Sodium 141. Potassium 3.6. Bicarb 18. BUN 25. Creatinine 1.9. Glucose 84. Anticoagulated with Eliquis. Remains on Levemir 20 units subcutaneous twice daily. Objective - Vital Signs Vital signs: Vital Signs Temp 97.8 F 03/27/24 07:26 Pulse 68 03/27/24 07:26 Resp 17 03/27/24 07:26 BP 174/89 03/27/24 07:26 Pulse Ox 98 03/27/24 07:40 FiO2 Intake & Output 03/26/24 03/27/24 03/27/24 18:59 06:59 18:59 Intake Total 1230 Output Total 650 700 Balance 580 -700 Intake: IV 750 Sodium Chloride 0.9% 1, 750 000 ml @ 75 mls/hr IV . [id number] [facility] Rx#:[id number] Oral 480 Output: Urine 650 700 Uretheral ([place]te) 700 Other: Voiding Method Indwelling Catheter Indwelling Catheter Indwelling Catheter # Bowel Movements 1 - Exam GENERAL EXAM: Alert, 78-year-old male, on room air, comfortable in no apparent distress. HEAD: Normocephalic. EYES: Normal reaction of pupils, equal size. NOSE: Clear with pink turbinates. THROAT: No erythema or exudates. NECK: No masses, no JVD. CHEST: No chest wall deformity. LUNGS: Equal air entry with no crackles, wheeze, rhonchi or dullness. CVS: S1 and S2 normal with no audible murmur, regular rhythm. ABDOMEN: No hepatosplenomegaly, normal bowel sounds, no guarding or rigidity. SPINE: No scoliosis or deformity SKIN: No rashes CENTRAL NERVOUS SYSTEM: No focal deficits, tone is normal in all 4 extremities. EXTREMITIES: There is no peripheral edema. No clubbing, no cyanosis. Peripheral pulses are intact. - Labs CBC & Chem 7: 03/27/24 03:27 03/27/24 03:27 Labs: Abnormal Lab Results - Last 24 Hours (Table) 03/26/24 03/26/24 03/27/24 Range/Units 16:27 20:53 03:27 WBC 12.83 H (4.50-10.00) X 10*3/uL RBC 3.13 L (4.40-5.60) X 10*6/uL Hgb 10.1 L (13.0-17.0) g/dL Hct 30.2 L (39.6-50.0) % MCH 32.3 H (27.0-32.0) pg Immature Gran # 0.16 H (0.00-0.04) X 10*3/uL Neutrophils # 10.97 H (1.80-7.70) X 10*3/uL Chloride (96-109) mmol/L Carbon Dioxide (21.6-31.8) mmol/L Creatinine (0.6-1.5) mg/dL Est GFR (CKD-EPI) (>=60) POC Glucose (mg/dL) 204 H 254 H (70-110) mg/dL Total Protein (6.2-8.2) g/dL Albumin (3.8-4.9) g/dL Albumin/Globulin Ratio (1.60-3.17) Ratio 03/27/24 03/27/24 03/27/24 Range/Units 03:27 06:33 11:38 WBC (4.50-10.00) X 10*3/uL RBC (4.40-5.60) X 10*6/uL Hgb (13.0-17.0) g/dL Hct (39.6-50.0) % MCH (27.0-32.0) pg Immature Gran # (0.00-0.04) X 10*3/uL Neutrophils # (1.80-7.70) X 10*3/uL Chloride 115 H (96-109) mmol/L Carbon Dioxide 18.0 L (21.6-31.8) mmol/L Creatinine 1.9 H (0.6-1.5) mg/dL Est GFR (CKD-EPI) 36 L (>=60) POC Glucose (mg/dL) 63 L 242 H (70-110) mg/dL Total Protein 4.6 L (6.2-8.2) g/dL Albumin 2.5 L (3.8-4.9) g/dL Albumin/Globulin Ratio 1.19 L (1.60-3.17) Ratio Assessment and Plan Assessment: Acute hyperosmolar nonketotic coma. Recovered Dehydration, secondary to the above. Recovered Acute on chronic kidney injury secondary to dehydration. Improved Diabetes mellitus, type II Chronic atrial fibrillation History of CAD, with previous CABG, 2009 Left nephrectomy, secondary to renal cell carcinoma History of hypertension History of hyperlipidemia History of GERD Plan: The patient was seen and evaluated Labs and medications reviewed Stable for discharge Follow-up closely with his PCP/hub inventory specialist I have personally seen and examined the patient, performed the documentation and the assessment and plan as written. Number of minutes spent on the visit: 10 Dictation was produced using [employer] dictation software. Please excuse any grammatical, word or spelling errors.
[2024-03-27 15:21] VITALS: BMI 27.3
[2024-03-27 16:35] LABS: Glucose,Whole Blood 268 mg/dL (70-110)
[2024-03-27] MEDS: hydrALAZINE HCL 25 MG TAB PO SCH (16:56)
--- NOTE | 2024-03-27 20:13 | P.PN ---
Progress Note - Text Progress Note Date: 03/27/24 patient 78-year-old gentleman with past medical history significant for diabetes mellitus, hypertension who presented to ER because of altered mental status. Patient history is limited because of his confusion. According to the EMR family noted the patient has been increasingly weak for the last week. Patient has been unable to get out of the bed. There was no complaint of fever or chills. There was no report of any chest pain or shortness of breath. There was no complaint of any recent fall or head trauma. Initial lab work done in the ER showed WBC 13.8, hemoglobin 12.9, platelet count 265, sodium 123, potassium 4.9, BUN 41, creatinine 2.65, glucose 1551, lactate 3.2 phosphorus 4.7, troponin 0.074 UA done showed urine WBC 162, urine leukocyte esterase small amount EKG done in the ER showed heart rate of93, irregular rhythm, no ST segment elevation or depression seen, no T-wave inversions seen. CT head done showed no acute intracranial process CT cervical spine negative for acute cervical spine fracture or subluxation Patient admitted to internal medicine service patient 78-year-old gentleman with past medical history significant for diabetes mellitus, hypertension who presented to ER because of altered mental status. Patient history is limited because of his confusion. According to the EMR family noted the patient has been increasingly weak for the last week. Patient has been unable to get out of the bed. There was no complaint of fever or chills. There was no report of any chest pain or shortness of breath. There was no complaint of any recent fall or head trauma. Initial lab work done in the ER showed WBC 13.8, hemoglobin 12.9, platelet count 265, sodium 123, potassium 4.9, BUN 41, creatinine 2.65, glucose 1551, lactate 3.2 phosphorus 4.7, troponin 0.074 UA done showed urine WBC 162, urine leukocyte esterase small amount EKG done in the ER showed heart rate of93, irregular rhythm, no ST segment elevation or depression seen, no T-wave inversions seen. CT head done showed no acute intracranial process CT cervical spine negative for acute cervical spine fracture or subluxation Patient admitted to internal medicine service 03/26. Patient seen and examined. States he is doing much better. Tolerating diet. March 27: Sitting up in a chair. Eating well. Patient has a walker at home. Overall feels better. Active Medications Apixaban (Apixaban 5 Mg Tab) 5 mg PO BID [facility]; Protocol Last Admin: 03/27/24 08:18 Dose: 5 mg Atorvastatin Calcium (Atorvastatin 80 Mg Tab) 80 mg PO HS [facility] Last Admin: 03/26/24 21:29 Dose: 80 mg Carvedilol (Carvedilol 12.5 Mg Tab) 25 mg PO AC-BID [facility] Last Admin: 03/27/24 16:56 Dose: 25 mg Clopidogrel Bisulfate (Clopidogrel 75 Mg Tab) 75 mg PO DAILY [facility] Last Admin: 03/27/24 08:18 Dose: 75 mg Dextrose/Water (Dextrose 50% Syringe 50 Ml) 25 ml IVP PER PROTOCOL PRN; Protocol PRN Reason: Hypoglycemia Dextrose/Water (Dextrose 50% Syringe 50 Ml) 50 ml IVP PER PROTOCOL PRN; Protocol PRN Reason: Hypoglycemia Hydralazine HCl (Hydralazine Hcl 25 Mg Tab) 75 mg PO TID [facility] Last Admin: 03/27/24 16:56 Dose: 75 mg Insulin Aspart (Insulin Aspart (Novolog) 100 Unit/Ml Vial) 0 unit SQ ACHS [facility]; Protocol Last Admin: 03/27/24 16:57 Dose: 6 unit Insulin Detemir (Insulin Detemir (Levemir) 100 Unit/Ml Syr) 20 unit SQ BID [facility] Last Admin: 03/27/24 08:18 Dose: Not Given Losartan Potassium (Losartan 50 Mg Tab) 50 mg PO DAILY [facility] Last Admin: 03/27/24 08:18 Dose: 50 mg Morphine Sulfate (Morphine Sulfate 4 Mg/Ml Syringe) 4 mg IV Q4HR PRN PRN Reason: Severe Pain (Scale 7 to 10) Naloxone HCl (Naloxone 0.4 Mg/Ml 1 Ml Vial) 0.2 mg IV Q2M PRN PRN Reason: Opioid Reversal Ondansetron HCl (Ondansetron 4 Mg/2 Ml Vial) 4 mg IVP Q8HR PRN PRN Reason: Nausea And Vomiting Pantoprazole Sodium (Pantoprazole 40 Mg Tablet) 40 mg PO AC-BRKFST [facility] Last Admin: 03/27/24 06:37 Dose: 40 mg Sodium Bicarbonate (Sodium Bicarbonate Tab 650 Mg Tab) 650 mg PO BID [facility] Last Admin: 03/27/24 12:28 Dose: 650 mg Tamsulosin HCl (Tamsulosin 0.4 Mg Cap.Er.24h) 0.4 mg PO HS [facility] Last Admin: 03/26/24 21:29 Dose: 0.4 mg On examination: VITAL SIGNS: [0.1, 68, 16, 159 x 56, 97% room air] GENERAL APPEARANCE: Up in a recliner, comfortable HEENT: Normal external appearance of nose and ear. Oral cavity normal EYES: Pupils equal. Conjunctiva normal. NECK: JVD not raised. Mass not palpable. RESPIRATORY: Respiratory effort normal. Lungs clear to auscultation. CARDIOVASCULAR: First and second sounds normal. No edema. ABDOMEN: Soft. Liver and spleen not palpable. No tenderness. No mass palpable. PSYCHIATRY: Alert and oriented x3. Mood and affect normal. INVESTIGATIONS, reviewed in the clinical context: March 27, 2024: White count 12.8 hemoglobin 10.1 platelets 235 sodium 141 potassium 3.6 BUN 24.6 creatinine 1.9 Previous labs: March 24: Creatinine 2.65 Assessment and plan: Hyperglycemic hyperosmolar state-better Acute metabolic encephalopathy-improved Dehydration felt better Pseudohyponatremia Acute kidney injury secondary to ATN secondary to hypovolemia Chronic atrial fibrillation Lactic acidosis Insulin-dependent diabetes mellitus Essential hypertension, with CKD coronary disease status post CABG Hyperlipidemia History of kidney cancer Chronic gait dysfunction, uses walker at baseline 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 Blood pressure medication/hydralazine adjusted. Discussed with patient. Hopefully can be discharged home tomorrow.
[2024-03-27 20:49] LABS: Glucose,Whole Blood 348 mg/dL (70-110)
[2024-03-28 06:35] LABS: Glucose,Whole Blood 275 mg/dL (70-110)
[2024-03-28 08:58] LABS: Magnesium 1.9 mg/dL (1.5-2.4)
[2024-03-28 09:08] LABS: BUN/Creat Ratio 11.23 Ratio (12.00-20.00); Blood Urea Nitrogen 24.7 mg/dL (9.0-27.0); Calcium 9.1 mg/dL (8.7-10.3); Carbon Dioxide 17.6 mmol/L (21.6-31.8); Chloride 111 mmol/L (96-109); Glucose 347 mg/dL (70-110); Potassium 3.9 mmol/L (3.5-5.5); Sodium 139 mmol/L (135-145)
--- NOTE | 2024-03-28 10:43 | P.PN ---
Subjective Patient is seen in follow-up for acute kidney injury on chronic kidney disease. Renal function slightly worse compared to yesterday. Off IV fluids. Denies chest pain or shortness of breath. Nonoliguric. Has chronic Villafuerte. No active complaints. Vital signs are stable. General: No acute distress. HEENT: Head exam is unremarkable. LUNGS: No audible rhonchi or wheezes. HEART: Rate and Rhythm are regular. ABDOMEN: Nontender. EXTREMITITES: No edema. Objective - Vital Signs Vital signs: Vital Signs Temp 98.4 F 03/28/24 07:05 Pulse 74 03/28/24 10:15 Resp 16 03/28/24 07:05 BP 166/60 03/28/24 10:15 Pulse Ox 97 03/28/24 07:05 FiO2 Intake & Output 03/27/24 03/28/24 03/28/24 18:59 06:59 18:59 Output Total 1100 Balance -1100 Weight 79.379 kg Output: Urine 1100 Other: Voiding Method Indwelling Catheter Indwelling Catheter Indwelling Catheter - Labs CBC & Chem 7: 03/27/24 03:27 03/28/24 02:29 Labs: Abnormal Lab Results - Last 24 Hours (Table) 03/27/24 03/27/24 03/27/24 Range/Units 11:38 16:34 20:44 Chloride (96-109) mmol/L Carbon Dioxide (21.6-31.8) mmol/L Creatinine (0.6-1.5) mg/dL Est GFR (CKD-EPI) (>=60) BUN/Creatinine Ratio (12.00-20.00) Ratio Glucose (70-110) mg/dL POC Glucose (mg/dL) 242 H 268 H 348 H (70-110) mg/dL 03/28/24 03/28/24 Range/Units 02:29 06:33 Chloride 111 H (96-109) mmol/L Carbon Dioxide 17.6 L (21.6-31.8) mmol/L Creatinine 2.2 H (0.6-1.5) mg/dL Est GFR (CKD-EPI) 30 L (>=60) BUN/Creatinine Ratio 11.23 L (12.00-20.00) Ratio Glucose 347 H (70-110) mg/dL POC Glucose (mg/dL) 275 H (70-110) mg/dL Assessment and Plan Plan: Assessment: 1. Acute kidney injury secondary to ATN secondary to hypovolemia. Creatinine 2.65 on admission and improved to 1.9 this admission - 2.2 today. 2. 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 3. HHNK status post insulin drip. 4. Status post left nephrectomy. 5. Diabetes mellitus. 6. Coronary disease status post CABG. 7. Metabolic acidosis secondary to IV fluids. On oral bicarb. 8. Hypotonic hyponatremia secondary to hyperglycemia. Resolved. Plan: Encouraged oral intake. Avoid nephrotoxins. Continue to monitor renal function and urine output. Increased dose of hydralazine to 100 mg. 2 amp sodium bicarb IV push today. Patient to follow-up with urology outpatient for Villafuerte catheter management.
[2024-03-28 11:00] LABS: Glucose,Whole Blood 296 mg/dL (70-110)
[2024-03-28] MEDS: SODIUM BICARB 8.4% 50 ML SYR (1 MEQ/ML) IV STA (11:12)
--- NOTE | 2024-03-28 12:47 | P.PN ---
Subjective Progress Note Date: 03/28/24 Principal diagnosis: Hyperosmolar nonketotic coma. Is a 78-year-old white male with multiple medical problems including coronary artery disease, CABG x 3 in 2008, type 2 diabetes, hypertension, dyslipidemia, history of kidney cancer and previous left nephrectomy. Patient was brought into the ER yesterday with altered mental status, and supposedly weakness and dizziness. His blood sugar was over 1500. Patient was admitted with hyperglycemic, hyperosmolar state. Patient received fluid boluses in the ER, remains on IV fluid 0.9 normal saline at 130 cc/h. Patient is on insulin at 40 units/h. His blood sugars have come down nicely his last blood sugar this morning was 384. Patient is noted to clinically improve, his mental status has cleared significantly since admission yesterday. Labs this morning showed sodium of 131 potassium 5.1 chloride 112 bicarb is 12 BUN is 39 creatinine 2.56. Initial creatinine on admission was 2.65. Baseline creatinine is 2.13 from few weeks ago, in 2020 his baseline creatinine was 1.41. Urinalysis showed negative ketones. Progress note dated March 26, 2024. 78-year-old male seen in consultation yesterday. Please see the note above. The patient has a history of type 2 diabetes. He also has a history of hypertension, hyperlipidemia, chronic kidney disease, coronary disease, previous bypass grafting. The patient was admitted on March 24. Currently he is on room air. He is getting saline at 75 cc an hour. Current labs include a white count 14.2, hemoglobin 11, hematocrit 32.5, and a platelet count 256,000. Sodium 138, potassium 3.8, chlorides 119, CO2 16, BUN 30, creatinine 2.32. Glucose is 192. Albumin is 2.3. The patient is seen today March 27, 2024 in follow-up on the regular medical floor. He is currently resting comfortably in bed. Awake and alert in no acute distress. Denies any worsening shortness of breath, cough or congestion. He is maintaining good O2 saturations in the 90s on room air. He is receiving normal saline at 75 mL/h. White count 12.8. Hemoglobin 10.1. Platelets 235. Sodium 141. Potassium 3.6. Bicarb 18. BUN 25. Creatinine 1.9. Glucose 84. Anticoagulated with Eliquis. Remains on Levemir 20 units subcutaneous twice daily. Progress note dated March 28, 2024. The patient is seen today in room 452. He is on room air. He is not receiving any IV fluids. His Villafuerte catheter is still in place. The patient is feeling well, without any specific complaints. He is awake and alert. Labs today include a sodium 139, potassium 3.9, chlorides 111, CO2 18, anion gap 10, BUN 25, creatinine 2.2. Glucose is 296. Magnesium 1.9. Objective - Vital Signs Vital signs: Vital Signs Temp 98.4 F 03/28/24 07:05 Pulse 74 03/28/24 10:15 Resp 16 03/28/24 07:05 BP 166/60 03/28/24 10:15 Pulse Ox 97 03/28/24 07:05 FiO2 Intake & Output 03/27/24 03/28/24 03/28/24 18:59 06:59 18:59 Output Total 1100 Balance -1100 Weight 79.379 kg Output: Urine 1100 Other: Voiding Method Indwelling Catheter Indwelling Catheter Indwelling Catheter - Exam No acute distress, oriented 3. Currently on room air. No respiratory distress. HEENT examination is grossly unremarkable. Mucous membranes are moist. No oral lesions. Neck supple. Full range of motion. No adenopathy thyromegaly or neck vein distention. Cardiovascular examination reveals regular rhythm rate. S1-S2 normal. No S3 or S4. No discernible murmur noted. Lungs reveal clear breath sounds. Breath sounds are equal bilaterally. No adventitious lung sounds including wheezes rhonchi or crackles. Abdomen soft bowel sounds are heard. No masses or tenderness. Extremities are intact. No cyanosis clubbing or edema. Skin is without rash or lesion. Neurologic examination is brief but nonfocal. - Labs CBC & Chem 7: 03/27/24 03:27 03/28/24 02:29 Labs: Abnormal Lab Results - Last 24 Hours (Table) 03/27/24 03/27/24 03/28/24 Range/Units 16:34 20:44 02:29 Chloride 111 H (96-109) mmol/L Carbon Dioxide 17.6 L (21.6-31.8) mmol/L Creatinine 2.2 H (0.6-1.5) mg/dL Est GFR (CKD-EPI) 30 L (>=60) BUN/Creatinine Ratio 11.23 L (12.00-20.00) Ratio Glucose 347 H (70-110) mg/dL POC Glucose (mg/dL) 268 H 348 H (70-110) mg/dL 03/28/24 03/28/24 Range/Units 06:33 10:59 Chloride (96-109) mmol/L Carbon Dioxide (21.6-31.8) mmol/L Creatinine (0.6-1.5) mg/dL Est GFR (CKD-EPI) (>=60) BUN/Creatinine Ratio (12.00-20.00) Ratio Glucose (70-110) mg/dL POC Glucose (mg/dL) 275 H 296 H (70-110) mg/dL Assessment and Plan Assessment: Acute hyperosmolar nonketotic coma. Dehydration, secondary to the above. Acute on chronic kidney injury secondary to dehydration. Diabetes, type II. Chronic atrial fibrillation. History of CAD, with previous CABG, 2008. Left nephrectomy, secondary to renal cell carcinoma. History of hypertension. History of hyperlipidemia. History of GERD. Plan: Plan dated March 26, 2024. The patient is feeling much better. He is on room air. He is getting saline at 75 cc an hour. The patient has multiple medical problems including coronary disease, with previous bypass grafting, type 2 diabetes, hypertension, hyperlipidemia, and chronic kidney disease. In addition, the patient has a history of chronic atrial fibrillation. The patient is stable to be transferred to the general medical floor with telemetry. We will continue to follow. Prognosis is guarded. No additional recommendations are made. Labs, x-rays, and all medications are reviewed. Plan dated March 28, 2024. The patient is seen today in room 452. The patient is awake and alert. He is not receiving any IV fluids, or supplemental oxygen. Labs, x-rays, and all medications are reviewed. The Villafuerte catheter remains in place. The patient is being evaluated for possible discharge in the near future. No additional recommendations are made at this time. Prognosis is guarded. Time with Patient: Less than 30
[2024-03-28 15:08] VITALS: RESP 17; TEMP 98
[2024-03-28] MEDS: hydrALAZINE HCL 50 MG TAB PO SCH (15:15)
--- NOTE | 2024-03-28 16:39 | P.DS ---
Providers Date of admission: 03/25/24 01:18 Expected date of discharge: 03/28/24 Attending physician: Fabio Snider Consults: 03/25/24 01:18 Consult Physician Routine Consulting Provider: Froy iBanchi Consult Reason/Comments: jesús Do you want consulting provider notified?: Yes Primary care physician: Licha Florence MD Hospital Course: patient 78-year-old gentleman with past medical history significant for diabetes mellitus, hypertension who presented to ER because of altered mental status. Patient history is limited because of his confusion. According to the EMR family noted the patient has been increasingly weak for the last week. Patient has been unable to get out of the bed. There was no complaint of fever or chills. There was no report of any chest pain or shortness of breath. There was no complaint of any recent fall or head trauma. Initial lab work done in the ER showed WBC 13.8, hemoglobin 12.9, platelet count 265, sodium 123, potassium 4.9, BUN 41, creatinine 2.65, glucose 1551, lactate 3.2 phosphorus 4.7, troponin 0.074 UA done showed urine WBC 162, urine leukocyte esterase small amount EKG done in the ER showed heart rate of93, irregular rhythm, no ST segment elevation or depression seen, no T-wave inversions seen. CT head done showed no acute intracranial process CT cervical spine negative for acute cervical spine fracture or subluxation Patient admitted to internal medicine service patient 78-year-old gentleman with past medical history significant for diabetes mellitus, hypertension who presented to ER because of altered mental status. Patient history is limited because of his confusion. According to the EMR family noted the patient has been increasingly weak for the last week. Patient has been unable to get out of the bed. There was no complaint of fever or chills. There was no report of any chest pain or shortness of breath. There was no complaint of any recent fall or head trauma. Initial lab work done in the ER showed WBC 13.8, hemoglobin 12.9, platelet count 265, sodium 123, potassium 4.9, BUN 41, creatinine 2.65, glucose 1551, lactate 3.2 phosphorus 4.7, troponin 0.074 UA done showed urine WBC 162, urine leukocyte esterase small amount EKG done in the ER showed heart rate of93, irregular rhythm, no ST segment elevation or depression seen, no T-wave inversions seen. CT head done showed no acute intracranial process CT cervical spine negative for acute cervical spine fracture or subluxation Patient admitted to internal medicine service 03/26. Patient seen and examined. States he is doing much better. Tolerating diet. March 27: Sitting up in a chair. Eating well. Patient has a walker at home. Overall feels better. March 28: Patient doing well. Tolerating diet. Blood pressure stable. Cleared by nephrology. Patient's had a Villafuerte catheter for over a month. Due to follow-up with his urologist outpatient. Does use a walker. On examination: VITAL SIGNS: 98, 69, 17, 166 x 60, 98% room air GENERAL APPEARANCE: Up in a recliner, comfortable HEENT: Normal external appearance of nose and ear. Oral cavity normal EYES: Pupils equal. Conjunctiva normal. NECK: JVD not raised. Mass not palpable. RESPIRATORY: Respiratory effort normal. Lungs clear to auscultation. CARDIOVASCULAR: First and second sounds normal. No edema. ABDOMEN: Soft. Liver and spleen not palpable. No tenderness. No mass palpable. PSYCHIATRY: Alert and oriented x3. Mood and affect normal. INVESTIGATIONS, reviewed in the clinical context: March 28: Potassium 3.9. BUN 24.7 creatinine 2.2 March 27, 2024: White count 12.8 hemoglobin 10.1 platelets 235 sodium 141 potassium 3.6 BUN 24.6 creatinine 1.9 Previous labs: March 24: Creatinine 2.65 Assessment and plan: Hyperglycemic hyperosmolar state-better Acute metabolic encephalopathy-improved Dehydration felt better Pseudohyponatremia Acute kidney injury secondary to ATN secondary to hypovolemia Chronic atrial fibrillation Lactic acidosis Insulin-dependent diabetes mellitus Essential hypertension, with CKD coronary disease status post CABG Hyperlipidemia History of kidney cancer Chronic gait dysfunction, uses walker at baseline Chronic kidney disease stage 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 Follow outpatient with nephrology Bladder outflow obstruction, patient is chronic Villafuerte catheter. Follow-up outpatient urology Disposition: Home Plan - Discharge Summary Discharge Rx Participant: No New Discharge Prescriptions: New hydrALAZINE HCL [Apresoline] 100 mg PO TID #90 tab Sodium Bicarbonate Tab 650 mg PO BID #60 tab Continue Atorvastatin [Lipitor] 80 mg PO HS Tamsulosin [Flomax] 0.4 mg PO HS Insulin Glargine,Hum.rec.anlog [Lantus Solostar Pen] 30 - 40 unit SQ HS Clopidogrel Bisulfate [Plavix] 75 mg PO DAILY Apixaban [Eliquis] 5 mg PO BID #60 tab Insulin Aspart [NovoLOG Flexpen] See Protocol SQ AC-TID Losartan [Cozaar] 50 mg PO DAILY Dapagliflozin Propanediol [Farxiga] 5 mg PO DAILY carvediloL [Coreg] 25 mg PO BID Discontinued hydrALAZINE HCL [Apresoline] 50 mg PO TID Discharge Medication List Atorvastatin [Lipitor] 80 mg PO HS 07/29/16 [History] Insulin Glargine,Hum.rec.anlog [Lantus Solostar Pen] 30 - 40 unit SQ HS 11/03/18 [History] Tamsulosin [Flomax] 0.4 mg PO HS 11/03/18 [History] Clopidogrel Bisulfate [Plavix] 75 mg PO DAILY 05/21/20 [History] Apixaban [Eliquis] 5 mg PO BID #60 tab 05/23/20 [Rx] Dapagliflozin Propanediol [Farxiga] 5 mg PO DAILY 03/25/24 [History] Insulin Aspart [NovoLOG Flexpen] See Protocol SQ AC-TID 03/25/24 [History] Losartan [Cozaar] 50 mg PO DAILY 03/25/24 [History] carvediloL [Coreg] 25 mg PO BID 03/25/24 [History] Sodium Bicarbonate Tab 650 mg PO BID #60 tab 03/28/24 [Rx] hydrALAZINE HCL [Apresoline] 100 mg PO TID #90 tab 03/28/24 [Rx] Follow up Appointment(s)/Referral(s): Licha Florence MD [Primary Care Provider] - 1-2 days (Office stated they will call patient for follow-up appointment.) Froy Bianchi DO [STAFF PHYSICIAN] - 1 Week (Office not answering at time of discharge. Please call for follow-up appointment.) Patient Instructions/Handouts: Villafuerte Catheter Placement and Care (DC), Diabetic Hyperglycemia (DC) Activity/Diet/Wound Care/Special Instructions: Follow up with urologist outpatient for urinary catheter management.
[2024-03-28 16:40] VITALS: PULSE 63
[2024-03-28 16:41] LABS: Glucose,Whole Blood 132 mg/dL (70-110)
[2024-03-28 16:47] VITALS: BP 160/70
== END 2024-03-28 18:55 | disposition home or self-care (01) | DRG 637 ==
LOC: EC 21:58 → 2SICU 03-25 01:18 → 4SSUR 03-26 15:45
PROVIDERS: ADMIT Hospitalist; ATTEND Hospitalist
DX: E11.01 Type 2 diabetes mellitus with hyperosmolarity with coma (principal); G93.41 Metabolic encephalopathy; N17.0 Acute kidney failure with tubular necrosis; E87.20 Acidosis, unspecified; I48.20 Chronic atrial fibrillation, unspecified; E87.1 Hypo-osmolality and hyponatremia; E11.22 Type 2 diabetes mellitus with diabetic chronic kidney disease; N18.32 Chronic kidney disease, stage 3b; E86.0 Dehydration; E78.5 Hyperlipidemia, unspecified; I12.9 Hypertensive chronic kidney disease with stage 1 through stage 4 chronic kidney disease, or unspecified chronic kidney disease; E86.1 Hypovolemia; R26.9 Unspecified abnormalities of gait and mobility; I25.10 Atherosclerotic heart disease of native coronary artery without angina pectoris; N32.0 Bladder-neck obstruction; Z79.02 Long term (current) use of antithrombotics/antiplatelets; Z79.4 Long term (current) use of insulin; Z95.1 Presence of aortocoronary bypass graft; Z85.528 Personal history of other malignant neoplasm of kidney; Z87.891 Personal history of nicotine dependence; Z90.5 Acquired absence of kidney; Z91.128 Patient's intentional underdosing of medication regimen for other reason
CPT/HCPCS: 36415; 51702; 70450; 72125; 80048; 80051; 80053; 80320; 81001; 82009; 82565; 82803; 82947; 83036; 83605; 83735; 84100; 84484; 84520; 85025; 85610; 85730; 93005; 94760; 96361; 96365; 96375; 99291

== ENCOUNTER → 2024-04-10 | Outpatient (CLI) | payer MEDICARE ==
--- NOTE | 2024-04-10 11:57 | XR ---
EXAMINATION TYPE: XR chest 2V DATE OF EXAM: 04/10/2024 11:52 AM COMPARISON: Chest radiographs from 05/26/2020 TECHNIQUE: XR chest 2V Frontal and lateral views of the chest. CLINICAL INDICATION:Male, 78 years old with history of R06.02 SOB; FINDINGS: Lungs/Pleura: Right lung is clear. Blunting of the left costophrenic angle with left basilar patchy a irspace opacities. No pneumothorax. Pulmonary vascularity: Unremarkable. Heart/mediastinum: Cardiomediastinal silhouette is enlarged and stable. Atherosclerotic calcificatio ns are seen in the aorta. Two lead cardiac conduction device overlying the left hemithorax with lead tips projecting over the right ventricle and right atrium. Musculoskeletal: No acute osseous pathology. Midline sternotomy wires are noted and stable. IMPRESSION: Small left pleural effusion with left basilar patchy airspace opacities concerning for pneumonia. [facility], , 04/10/2024 11:55 AM
== END | disposition home or self-care (01) ==
LOC: RADXRMAIN 11:37
PROVIDERS: ATTEND Internal Medicine Interventional Cardiology
DX: J18.9 Pneumonia, unspecified organism (principal); J90 Pleural effusion, not elsewhere classified
CPT/HCPCS: 71046

== ENCOUNTER → 2024-05-17 | Outpatient (CLI) | payer MEDICARE ==
[2024-05-17 15:06] LABS: HCT 42.3 % (39.6-50.0); HGB 12.9 g/dL (13.0-17.0); MCH 32.3 pg (27.0-32.0); MCHC 30.5 g/dL (32.0-37.0); Mean Platelet Volume 10.2 FL (9.5-12.2); NRBC Per 100 WBC 0 X 10*3/uL (0.00-0.01); Platelet Count 182 X 10*3/uL (140-440); RBC 3.99 X 10*6/uL (4.40-5.60); RDW 13.5 % (11.5-14.5); WBC 7.34 X 10*3/uL (4.50-10.00)
[2024-05-17 15:14] LABS: BUN/Creat Ratio 12.75 Ratio (12.00-20.00); Blood Urea Nitrogen 30.6 mg/dL (9.0-27.0); Carbon Dioxide 23.8 mmol/L (21.6-31.8); Chloride 112 mmol/L (96-109); Glucose 183 mg/dL (70-110); Potassium 5.1 mmol/L (3.5-5.5); Sodium 143 mmol/L (135-145)
[2024-05-17 15:15] LABS: ALT 53 U/L (10-49); AST 34 U/L (14-35); Albumin 3.8 g/dL (3.8-4.9); Albumin/Globulin Ratio 1.31 Ratio (1.60-3.17); Alkaline Phosphatase 92 U/L (41-126); Calcium 10.1 mg/dL (8.7-10.3); Globulin 2.9 g/dL (1.6-3.3); Total Bilirubin 0.4 mg/dL (0.3-1.2); Total Protein 6.7 g/dL (6.2-8.2)
== END | disposition home or self-care (01) ==
LOC: LABWHC1 09:49
PROVIDERS: ATTEND Internal Medicine Interventional Cardiology
DX: I25.5 Ischemic cardiomyopathy (principal); I25.10 Atherosclerotic heart disease of native coronary artery without angina pectoris; Z95.1 Presence of aortocoronary bypass graft
CPT/HCPCS: 36415; 80053; 85027

== ENCOUNTER → 2024-07-09 | Outpatient (CLI) | payer MEDICARE ==
[2024-07-09 18:44] LABS: Basophils # (A) 0.05 X 10*3/uL (0.00-0.10); Basophils % (A) 0.7 %; Eosinophils % (A) 2.6 %; HCT 39.9 % (39.6-50.0); HGB 13.1 g/dL (13.0-17.0); Lymphocytes # (A) 0.88 X 10*3/uL (0.90-5.00); Lymphocytes % (A) 11.4 %; MCH 32.7 pg (27.0-32.0); MCHC 32.8 g/dL (32.0-37.0); MCV 99.5 FL (80.0-97.0); Mean Platelet Volume 10.3 FL (9.5-12.2); Monocytes # (A) 0.52 X 10*3/uL (0.20-1.00); Monocytes % (A) 6.8 %; NRBC Per 100 WBC 0 X 10*3/uL (0.00-0.01); Neutrophils # (A) 6.01 X 10*3/uL (1.80-7.70); Neutrophils % (A) 78.1 %; Platelet Count 195 X 10*3/uL (140-440); RBC 4.01 X 10*6/uL (4.40-5.60); RDW 13.5 % (11.5-14.5); WBC 7.69 X 10*3/uL (4.50-10.00)
[2024-07-09 19:13] LABS: BUN/Creat Ratio 12.67 Ratio (12.00-20.00); Blood Urea Nitrogen 26.6 mg/dL (9.0-27.0); Calcium 10.4 mg/dL (8.7-10.3); Carbon Dioxide 21.4 mmol/L (21.6-31.8); Chloride 115 mmol/L (96-109); Glucose 113 mg/dL (70-110); Potassium 4.9 mmol/L (3.5-5.5); Sodium 144 mmol/L (135-145)
[2024-07-09 19:24] LABS: Appearance,Urine Turbid (Clear); Bilirubin,Urine Negative (Negative); Blood,Urine Moderate (Negative); Color,Urine Yellow (Yellow); Ketones,Urine Negative (Negative); Nitrite,Urine Negative (Negative); PH, Urine 5.5; Specific Gravity,Urine 1.017 (1.001-1.030)
[2024-07-09 19:50] LABS: Bacteria,Urine 4+ (None Seen)
== END | disposition home or self-care (01) ==
LOC: LABPAT 11:42
PROVIDERS: ATTEND Urology
DX: Z01.812 Encounter for preprocedural laboratory examination (principal); N40.1 Benign prostatic hyperplasia with lower urinary tract symptoms
CPT/HCPCS: 36415; 80048; 81001; 85025; 87086

== ENCOUNTER 2024-07-17 06:08 | Day surgery (SDC) | payer MEDICARE ==
--- NOTE | 2024-07-08 13:09 | P.HPIHPCON ---
History of Present Illness H&P Date: 07/08/24 Chief Complaint: BPH, urinary retention This is a 78-year-old male with history of urinary retention, has failed multiple trial voids. Underwent a cystoscopy which showed evidence of an obstructive prostate. Discussed with him the option of a TURP. He is aware of the risk which include but not limited to bleeding, infection, urinary incontinence, retrograde ejaculation. He is aware of risk of persistent retention even with a TURP. Discussed given his comorbidities he is at a higher risk of medical complication. 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 I also explained to the patient the risks, benefits and side effects of the alternatives, as well as the risks related to not receiving the proposed procedure, care, treatment, or services. Past Medical History Past Medical History: Cancer, Diabetes Mellitus, GERD/Reflux, Hyperlipidemia, Hypertension Additional Past Medical History / Comment(s): past hx colon polyps History of Any Multi-Drug Resistant Organisms: None Reported Past Surgical History: Appendectomy, Cholecystectomy, Coronary Bypass/CABG, Heart Catheterization Additional Past Surgical History / Comment(s): triple bypass 2008 Past Anesthesia/Blood Transfusion Reactions: No Reported Reaction Past Psychological History: No Psychological Hx Reported Smoking Status: Never smoker Past Alcohol Use History: None Reported Past Drug Use History: None Reported - Past Family History Mother Family Medical History: No Reported History Medications and Allergies Home Medications Medication Instructions Recorded Confirmed Type Atorvastatin [Lipitor] 80 mg PO HS 07/29/16 03/25/24 History Insulin Glargine,Hum.rec.anlog 30 - 40 unit SQ HS 11/03/18 03/25/24 History [Lantus Solostar Pen] Tamsulosin [Flomax] 0.4 mg PO HS 11/03/18 03/25/24 History Clopidogrel Bisulfate [Plavix] 75 mg PO DAILY 05/21/20 03/25/24 History Apixaban [Eliquis] 5 mg PO BID #60 tab 05/23/20 03/25/24 Rx Dapagliflozin Propanediol [Farxiga] 5 mg PO DAILY 03/25/24 03/25/24 History Insulin Aspart [NovoLOG Flexpen] See Protocol SQ AC-TID 03/25/24 03/25/24 History Losartan [Cozaar] 50 mg PO DAILY 03/25/24 03/25/24 History carvediloL [Coreg] 25 mg PO BID 03/25/24 03/25/24 History Sodium Bicarbonate Tab 650 mg PO BID #60 tab 03/28/24 Rx hydrALAZINE HCL [Apresoline] 100 mg PO TID #90 tab 03/28/24 Rx Allergies Allergy/AdvReac Type Severity Reaction Status Date / Time No Known Allergies Allergy Verified 03/24/24 22:04 Surgical - Exam - General no distress, no pain - Eyes normal ocular movement, no pale - ENT normal nares, normal mucosa - Respiratory normal expansion, normal respiratory effort - Abdomen Abdomen: soft, non tender, no distended - Psychiatric oriented to time, oriented to person, oriented to place Assessment and Plan Assessment: OR for TURP
[2024-07-17] MEDS ORDERED: MIDAZOLAM 2 MG/2 ML VIAL IV PRN (06:10)
[2024-07-17] MEDS ORDERED: LIDOCAINE 1% (10MG/ML) FOR IV START INTRADERMA PRN (06:10)
[2024-07-17] MEDS ORDERED: fentaNYL (PF) 50 MCG/ML 2 ML AMP IVP PRN (06:10)
[2024-07-17] MEDS ORDERED: HYDROmorphone 0.5 MG/0.5 ML SYRINGE IVP PRN (06:10)
[2024-07-17] MEDS: IV FLUID CONTINUATION 1,000 ML IV ONE ×2 (06:34→10:01)
[2024-07-17] MEDS: LACTATED RINGERS 1,000 ML IV SCH (07:03)
[2024-07-17] MEDS: DEXAMETHASONE SOD PHOSPHATE 4 MG/ML 1 ML VIAL IV ONE (07:05)
[2024-07-17] MEDS: ONDANSETRON 4 MG/2 ML VIAL IVP ONE (07:05)
[2024-07-17] MEDS: GENTAMICIN 120 MG in SODIUM CHLORIDE 0.9% 100 ML IVPB PRN (07:07)
[2024-07-17 07:08] LABS: Glucose,Whole Blood 121 mg/dL (70-110)
[2024-07-17] MEDS ORDERED: SUCCINYLCHOLINE CHLORIDE 200 MG/10 ML VIAL IV ONE (07:21)
[2024-07-17] MEDS ORDERED: LIDOCAINE 1% INJ 10MG/ML (20 ML MDV) ONE (07:21)
[2024-07-17] MEDS ORDERED: fentaNYL (PF) 50 MCG/ML 2 ML AMP ONE (07:21)
[2024-07-17] MEDS ORDERED: ACETAMINOPHEN IV (For NPO) 1,000 MG/100 ML VIAL ONE (07:21)
[2024-07-17] MEDS ORDERED: ePHEDrine 50 MG/ML 1 ML VIAL ONE (07:21)
[2024-07-17] MEDS ORDERED: ETOMIDATE 2 MG/ML 10 ML VIAL ONE (07:21)
[2024-07-17] MEDS ORDERED: MIDAZOLAM 2 MG/2 ML VIAL ONE (07:21)
[2024-07-17] MEDS ORDERED: HYDROmorphone (PF) 1 MG/ML ONE (07:21)
[2024-07-17] MEDS ORDERED: PROPOFOL 10 MG/ML 20 ML VIAL IV ONE (07:21)
[2024-07-17 09:08] VITALS: TEMP 97.6
--- NOTE | 2024-07-17 09:21 | P.OP ---
Date of Procedure: 07/17/24 Preoperative Diagnosis: BPH Postoperative Diagnosis: Same Procedure(s) Performed: TURP(bipolar) Implants: None Anesthesia: [place] Surgeon: Kwaku Summers Estimated Blood Loss (ml): 75 Pathology: other (Prostate adenoma) Condition: stable Disposition: PACU Indications for Procedure: This is a 78-year-old male with history of urinary retention, has failed multiple trial voids. Underwent a cystoscopy which showed evidence of an obstructive prostate. Discussed with him the option of a TURP. He is aware of the risk which include but not limited to bleeding, infection, urinary incontinence, retrograde ejaculation. He is aware of risk of persistent ret ention even with a TURP. Discussed given his comorbidities he is at a higher risk of medical complication. He was evaluated by his primary care physician and excavating machine operator and was cleared for surgery Operative Findings: Trilobar hyperplasia Description of Procedure: Patient brought to the operating room, general anesthesia was induced. He was p repped and draped in sterile fashion placed in dorsolithotomy position. Resectoscope with a 25 Mexican sheath was inserted per urethra, cystoscopy was performed showed a moderately trabeculated bladder, and trilobar hyperplasia. Using the bipolar resectoscope the prostate was resected down to the surgical capsule, point of bleeding was controlled with cautery, all prostate chips were irrigated out. Repeat cystoscopy showed a open prostate fossa, there was no injury to the bladder, ureteral orifice ease, or external sphincter. Resection was carried distal to the bladder neck but staying proximal to the Veru. At this point resectoscope was withdrawn and a 22 Mexican Villafuerte was placed with a return of clear urine. The catheter was irrigated to clear. Patient tolerated procedure was taken to recovery in stable condition
[2024-07-17 09:54] VITALS: RESP 16
[2024-07-17] MEDS: SODIUM CHLORIDE 0.9% 1,000 ML IV SCH (10:11)
[2024-07-17 11:51] VITALS: BP 131/64; PULSE 67
== END 2024-07-17 12:25 | disposition home or self-care (01) ==
LOC: OR 06:08
PROVIDERS: ATTEND Urology
DX: N41.0 Acute prostatitis (principal); N40.1 Benign prostatic hyperplasia with lower urinary tract symptoms; R33.8 Other retention of urine; K21.9 Gastro-esophageal reflux disease without esophagitis; I10 Essential (primary) hypertension; E78.5 Hyperlipidemia, unspecified; E11.9 Type 2 diabetes mellitus without complications; Z79.01 Long term (current) use of anticoagulants; Z79.02 Long term (current) use of antithrombotics/antiplatelets; Z79.4 Long term (current) use of insulin; Z79.84 Long term (current) use of oral hypoglycemic drugs; Z86.0100 Personal history of colon polyps, unspecified; Z90.49 Acquired absence of other specified parts of digestive tract; Z79.899 Other long term (current) drug therapy; Z85.528 Personal history of other malignant neoplasm of kidney; Z95.1 Presence of aortocoronary bypass graft
CPT/HCPCS: 88305; 52601; J2250; J0330; J1100; J0690; J2405; J2003; J3010; J1580; J1171; J0131; J2704